=== PATIENT | female | born 1990 | race African-American/Black ===

== ENCOUNTER 2017-09-18 00:16 | Emergency (ER) | payer SELFPAY ==
[2017-09-18 00:24] VITALS: BP 129/90
--- NOTE | 2017-09-18 00:50 | ER Document Report ---
ED General - General Chief Complaint: Sore Throat Stated Complaint: THROAT PAIN Time Seen by Provider: 09/18/17 00:37 Notes: Patient is a 19-year-old female presents with complaint of sore throat and headache. She says she has been sick for a week. Friends at work had strep and therefore she is come to be checked for strep. She admits she has not been eating or drinking much because her throat hurts. She had T-max and was benign 9. She has been taking Tylenol Motrin for pain. No vomiting. No diarrhea. No other complaints at this time. Why into the room the patient tells me that she has to leave because her sister needs her to come pick her up. I informed her that the strep test is not back yet and also informed her that her heart rate is high and she has not been drinking and therefore feel that she would be best if we give IV fluids as she is probably dehydrated. Told her I want to make sure that her heart rate returns to normal and that she continues to feel improved. Patient says she will not wait for IV fluids. She was says she will wait approximately 5-10 minutes longer to see if her strep test comes back. She says she would not wait for further treatment after that because she needs to go picking machine operator her sister. She has no chronic medical problems and does not take medications. TRAVEL OUTSIDE OF THE [place] IN LAST 30 DAYS: No - Related Data Allergies/Adverse Reactions: No Known Allergies Allergy (Verified 09/18/17 00:19) Past Medical History - Social History Smoking Status: Never Smoker Frequency of alcohol use: None Drug Abuse: None Family History: Reviewed & Not Pertinent Patient has suicidal ideation: No Patient has homicidal ideation: No Renal/ Medical History: Denies: Hx Peritoneal Dialysis - Immunizations Hx Diphtheria, Pertussis, Tetanus Vaccination: Yes Review of Systems - Review of Systems Notes: My Normal Review Basic REVIEW OF SYSTEMS: CONSTITUTIONAL : Body aches. EENT: Throat. CARDIOVASCULAR: Denies chest pain. RESPIRATORY: Denies cough, cold, or chest congestion. Denies shortness of breath, difficulty breathing, or wheezing. GASTROINTESTINAL: Denies abdominal pain. Denies nausea, vomiting, or diarrhea. Denies constipation. Last BM: MUSCULOSKELETAL: Denies neck or back pain or joint pain or swelling. SKIN: Denies rash or skin lesions. NEUROLOGICAL: Denies altered mental status or loss of consciousness. Has a headache. Denies weakness or paralysis or loss of use of either side. Denies problems with gait or speech. Denies sensory or motor loss. ALL OTHER SYSTEMS REVIEWED AND NEGATIVE. Physical Exam - Vital signs Vitals: Temp Pulse Resp BP Pulse Ox 98.8 F 120 H 18 129/90 H 100 09/18/17 00:23 09/18/17 00:23 09/18/17 00:23 09/18/17 00:23 09/18/17 00:23 - Notes Notes: General Appearance: Well nourished, alert, cooperative, no acute distress, mild to moderate obvious discomfort. Not septic or toxic appearing. Patient initially wrote a note to nurses saying that she wanted to leave. When asked if she hurts to talk she says "yes". Patient then answers all my questions verbally. She does not have a hoarse voice. Vitals: reviewed, See vital signs table. Head: no swelling or tenderness to the head Eyes: PERRL, EOMI, Conjuctiva clear Mouth: No decreasd moisture Throat: Mild pharyngeal erythema. No tonsillar inflammation. No peritonsillar swelling. No trismus. No stridor. Neck: Supple, no neck tenderness, some mild anterior cervical lymphadenopathy. Patient is able to fully extend and flex her neck without difficulty. Lungs: No wheezing, No rales, No rhonci, No accessory muscle use, good air exchange bilaterally. Heart: Tachycardic rate, Regular rythm, No murmur, no rub Abdomen: Normal BS, soft, No rigidity, No abdominal tenderness, No guarding, no rebound, no abdominal masses, no organomegaly Extremities: strength 5/5 in all extremities, good pulses in all extremities, no swelling or tenderness in the extremities, no edema. Skin: warm, dry, appropriate color, no rash Neuro: speech clear, oriented x 3, normal affect, responds appropriately to questions. Cranial nerves II through XII are intact. Distal sensation intact. Normal gait. Patient moves all extremities without difficulty. No focal neurologic deficits on exam. Course - Re-evaluation Re-evalutation: 09/18/17 01:12 I saw the patient informed her that this is a strep come back of the back in the room. There is some is soon as I left the bedside the patient left. She then called back for strep results. Her strep was negative. The nurse tell her over the phone as I told her bedside that I still feel that she needs IV fluids I am concerned about her fast heart rate. Informed her to return to ER anytime so can reassess her and complete her treatment. Before the patient left the nose at bedside I talked to patient length about her high heart rate and how I felt that she needed further treatment including IV fluids as I suspect she is dehydrated she has not been eating or drinking at all. Patient showed understanding of this but obviously left soon as I got done talking to her and she want to go picking machine operator her sister. Patient left AGAINST MEDICAL ADVICE. Dictation of this chart was performed using voice recognition software; therefore, there may be some unintended grammatical errors. - Vital Signs Vital signs: Temp Pulse Resp BP Pulse Ox 98.8 F 120 H 18 129/90 H 100 09/18/17 00:23 09/18/17 00:23 09/18/17 00:23 09/18/17 00:23 09/18/17 00:23 Discharge - Discharge Clinical Impression: Tachycardia Pharyngitis Qualifiers: Pharyngitis/tonsillitis etiology: unspecified etiology Qualified Code(s): J02.9 - Acute pharyngitis, unspecified Disposition: ELOPED
== END 2017-09-18 01:08 | disposition left against medical advice (07) ==
LOC: ER 00:16
DX: J02.9 Acute pharyngitis, unspecified (principal); R51 Headache; R00.0 Tachycardia, unspecified; Z20.818 Contact with and (suspected) exposure to other bacterial communicable diseases; Z53.29 Procedure and treatment not carried out because of patient's decision for other reasons
CPT/HCPCS: 87070; 87880; 99281

== ENCOUNTER 2017-10-23 21:36 | Emergency (ER) | payer SELFPAY ==
[2017-10-23 22:35] VITALS: BP 136/97
[2017-10-23] MEDS ORDERED: AZITHROMYCIN 250 MG TABLET PO ONE (22:47)
--- NOTE | 2017-10-23 22:48 | ER Document Report ---
ED General - General Chief Complaint: Flu Symptoms Stated Complaint: FLU LIKE SYMPTOMS Time Seen by Provider: 10/23/17 22:45 Mode of Arrival: Ambulatory Information source: Patient Notes: 27-year-old female presents with complaints of body aches nasal congestion sinus drainage that started 2-3 days ago. Patient admits to feeling warm but no diagnosis of fever admits to chills TRAVEL OUTSIDE OF THE [place] IN LAST 30 DAYS: No - HPI Onset: Other Onset/Duration: Persistent Quality of pain: Achy Severity: Mild Pain Level: 1 Associated symptoms: Body/muscle aches, Chills, Fever, Sinus pain/drainage Exacerbated by: Denies Relieved by: Denies Similar symptoms previously: No Recently seen / treated by doctor: No - Related Data Allergies/Adverse Reactions: No Known Allergies Allergy (Verified 09/18/17 00:19) Past Medical History - Social History Smoking Status: Never Smoker Cigarette use (# per day): No Chew tobacco use (# tins/day): No Smoking Education Provided: No Family History: Reviewed & Not Pertinent Renal/ Medical History: Denies: Hx Peritoneal Dialysis - Immunizations Hx Diphtheria, Pertussis, Tetanus Vaccination: Yes Review of Systems - Review of Systems Notes: REVIEW OF SYSTEMS: CONSTITUTIONAL : Admits fevers chills EENT: Admits to sinus pressure drainage CARDIOVASCULAR: Denies chest pain. Denies palpitations or racing or irregular heart beat. Denies ankle edema. RESPIRATORY: Denies cough, cold, or chest congestion. Denies shortness of breath, difficulty breathing, or wheezing. GASTROINTESTINAL: Denies abdominal pain or distention. Denies nausea, vomiting , or diarrhea. Denies blood in vomitus, stools, or per rectum. Denies black, tarry stools. Denies constipation. GENITOURINARY: Denies difficulty urinating, painful urination, burning, frequency, blood in urine, or discharge. FEMALE GENITOURINARY: Denies vaginal bleeding, heavy or abnormal periods, irregular periods. Denies vaginal discharge or odor. MUSCULOSKELETAL: Admits to body aches SKIN: Denies rash, lesions or sores. HEMATOLOGIC : Denies easy bruising or bleeding. LYMPHATIC: Denies swollen, enlarged glands. NEUROLOGICAL: Denies confusion or altered mental status. Denies passing out or loss of consciousness. Denies dizziness or lightheadedness. Denies headache. Denies weakness or paralysis or loss of use of either side. Denies problems with gait or speech. Denies sensory loss, numbness, or tingling. Denies seizures. PSYCHIATRIC: Denies anxiety or stress. Denies depression, suicidal ideation, or homicidal ideation. ALL OTHER SYSTEMS REVIEWED AND NEGATIVE. PHYSICAL EXAMINATION: GENERAL: Well-appearing, well-nourished and in no acute distress. HEAD: Atraumatic, normocephalic. EYES: Pupils equal round and reactive to light, extraocular movements intact, conjunctiva are normal. ENT: Bilateral frontal maxillary sinus tenderness upon palpation nasal congestion noted NECK: Normal range of motion, supple without lymphadenopathy LUNGS: Breath sounds clear to auscultation bilaterally and equal. No wheezes rales or rhonchi. HEART: Regular rate and rhythm without murmurs was noted to be tachycardic upon arrival but had resolved upon my evaluation heart rate 86 ABDOMEN: Soft, nontender, nondistended abdomen. No guarding, no rebound. No masses appreciated. Female : deferred Musculoskeletal: Normal range of motion, no pitting or edema. No cyanosis. NEUROLOGICAL: Cranial nerves grossly intact. Normal speech, normal gait. Normal sensory, motor exams PSYCH: Normal mood, normal affect. SKIN: Warm, Dry, normal turgor, no rashes or lesions noted. Dictation was performed using [employer] voice recognition software Physical Exam - Vital signs Vitals: Temp Pulse Resp BP Pulse Ox 97.8 F 118 H 20 136/97 H 98 10/23/17 22:32 10/23/17 22:32 10/23/17 22:32 10/23/17 22:32 10/23/17 22:32 Course - Re-evaluation Re-evalutation: 10/24/17 00:56 Patient's presentation is most consistent with sinusitis, she does have some generalized body aches which I believe may be due to fevers and chills from the infectious process, nonetheless patient has been given very strict return precautions will be started on antibiotics and the stable for discharge After performing a Medical Screening Examination, I estimate there is LOW risk for ACUTE CORONARY SYNDROME, PULMONARY EMBOLI, RESPIRATORY FAILURE, SEPSIS OR MENINGITIS, thus I consider the discharge disposition reasonable. I have reevaluated this patient multiple times and no significant life threatening changes are noted. The patient and I have discussed the diagnosis and risks, and we agree with discharging home with close follow-up. We also discussed returning to the Emergency Department immediately if new or worsening symptoms occur. We have discussed the symptoms which are most concerning (e.g., changing or worsening pain, trouble swallowing or breathing, neck stiffness, fever) that necessitate immediate return. - Vital Signs Vital signs: Temp Pulse Resp BP Pulse Ox 97.8 F 118 H 20 136/97 H 98 10/23/17 22:32 10/23/17 22:32 10/23/17 22:32 10/23/17 22:32 10/23/17 22:32 Discharge - Discharge Clinical Impression: Tachycardia Sinusitis Qualifiers: Sinusitis location: frontal Chronicity: acute Recurrence: non-recurrent Qualified Code(s): J01.10 - Acute frontal sinusitis, unspecified Condition: Stable Disposition: HOME, SELF-CARE Instructions: Sinusitis ([facility]) Prescriptions: Azithromycin 250 mg PO DAILY #4 tablet Forms: Return to Work
== END 2017-10-23 22:58 | disposition home or self-care (01) ==
LOC: ER 21:36
DX: J01.10 Acute frontal sinusitis, unspecified (principal); R00.0 Tachycardia, unspecified; M79.1 Myalgia
CPT/HCPCS: 99283

== ENCOUNTER 2017-10-31 20:34 | Emergency (ER) | payer SELFPAY ==
[2017-10-31] MEDS ORDERED: FLUCONAZOLE 100 MG TABLET PO ONE (22:43)
[2017-10-31] MEDS ORDERED: GUAIFENESIN 600 MG TABLET.SA PO ONE (22:43)
--- NOTE | 2017-10-31 22:47 | ER Document Report ---
ED General - General Chief Complaint: Cold Symptoms Stated Complaint: CHEST WALL PAIN Time Seen by Provider: 10/31/17 22:00 Mode of Arrival: Ambulatory Information source: Patient Notes: 27-year-old female with no significant past medical history presents with complaint of nasal congestion, nasal drainage and a rash on her inguinal area. Patient states that she has had sinus pressure, sinus drainage for approximately 2 weeks. She was recently treated with "4 pills". She states that she had improvement of her sore throat but that she is still experiencing nasal drainage which is making her concerned. Patient also states rash was noticed 1 day prior to arrival. She describes it as burning, located in her inguinal folds and perineum. She is sexually active with one partner and does not use protection. She denies any vaginal discharge, dysuria, hematuria. Sexually transmitted disease. TRAVEL OUTSIDE OF THE [place] IN LAST 30 DAYS: No - HPI Onset: Other - 2 weeks Onset/Duration: Gradual Quality of pain: Pressure Severity: Mild Pain Level: 1 Associated symptoms: Nonproductive cough, Headache. denies: Earache, Fever, Nausea, Vomiting Exacerbated by: Denies Relieved by: Denies Similar symptoms previously: No Recently seen / treated by doctor: No - Related Data Allergies/Adverse Reactions: No Known Allergies Allergy (Verified 09/18/17 00:19) Past Medical History - General Information source: Patient - Social History Smoking Status: Never Smoker Frequency of alcohol use: None Drug Abuse: None Lives with: Family Family History: Reviewed & Not Pertinent Patient has suicidal ideation: No Patient has homicidal ideation: No - Medical History Medical History: Negative Renal/ Medical History: Denies: Hx Peritoneal Dialysis - Immunizations Hx Diphtheria, Pertussis, Tetanus Vaccination: Yes Review of Systems - Review of Systems Constitutional: denies: Fever EENT: Nose congestion, Nose discharge, Sinus pressure, Sinus discharge, Throat pain Cardiovascular: denies: Chest pain Respiratory: denies: Short of breath Gastrointestinal: denies: Abdominal pain Genitourinary: denies: Dysuria Skin: Rash - inguinal folds Neurological/Psychological: No symptoms reported Physical Exam - Vital signs Vitals: Temp Pulse BP Pulse Ox 98.7 F 113 H 124/98 H 94 10/31/17 20:50 10/31/17 20:50 10/31/17 20:50 10/31/17 20:50 Interpretation: Normal, Tachycardic - She is tearful, anxious. - General General appearance: Appears well, Alert In distress: None - HEENT Head: Normocephalic, Atraumatic Eyes: Normal Conjunctiva: Normal Extraocular movements intact: Yes Pupils: PERRL Ears: Normal External canal: Normal Tympanic membrane: Normal Sinus: Frontal, Maxillary, Tenderness Nasal: Swelling. No: Purulent discharge Mouth/Lips: Normal Mucous membranes: Normal Neck: No: Anterior cervical chain - Respiratory Respiratory status: No respiratory distress Chest status: Nontender Breath sounds: Normal Chest palpation: Normal - Skin Skin Temperature: Warm Skin Moisture: Dry Skin Color: Normal Skin irregularity: Rash - Fungal rash of the inguinal folds bilaterally. Course - Re-evaluation Re-evalutation: 10/31/17 23:53 Patient requesting discharge home. 11/01/17 02:20 27-year-old female with no significant past medical history presents with complaint of nasal congestion, facial pressure and an inguinal rash. She states that nasal pressure and drainage have been ongoing for 2 weeks. She states that she had recently been on a prescribed medication for 4 days but is unclear whether this was an antibiotic or decongestant. Patient also is complaining of a fungal rash located in her inguinal folds bilaterally. Upon arrival vitals were reviewed and within normal limits. She is afebrile, normotensive. She is mildly tachycardic but I think this is secondary to her being anxious and tearful. Exam is significant for sinusitis, fungal rash. She was given Diflucan in the department. A prescription for nystatin powder was also provided to the patient. Patient was reassured and discharged home upon her request. Laboratory 10/31/17 23:05 Urine Color YELLOW Urine Appearance SLIGHTLY-CLOUDY Urine pH 6.0 Ur Specific [place] 1.014 Urine Protein NEGATIVE Urine Glucose (UA) NEGATIVE Urine Ketones NEGATIVE Urine Blood NEGATIVE Urine Nitrite NEGATIVE Urine Bilirubin NEGATIVE Urine Urobilinogen NEGATIVE Ur Leukocyte Esterase NEGATIVE Urine WBC (Auto) 1 Urine RBC (Auto) 0 Squamous Epi Cells Auto 9 Urine Mucus (Auto) RARE Urine Ascorbic Acid NEGATIVE Urine HCG, Qual NEGATIVE - Vital Signs Vital signs: Temp Pulse Resp BP Pulse Ox 98.7 F 113 H 15 121/93 H 100 10/31/17 20:50 10/31/17 20:50 10/31/17 22:01 10/31/17 22:00 10/31/17 21:59 Discharge - Discharge Clinical Impression: Fungal rash of trunk, URI (upper respiratory infection) Sinusitis Qualifiers: Sinusitis location: maxillary Chronicity: acute Recurrence: not specified as recurrent Qualified Code(s): J01.00 - Acute maxillary sinusitis, unspecified Condition: Good Disposition: HOME, SELF-CARE Instructions: Diaper Rash ([facility]), Upper Respiratory Illness ([facility]) Additional Instructions: Your exam is consistent with an upper respiratory infection and a fungal rash. He will be prescribed Mucinex, nystatin and Diflucan. Prescriptions: Fluconazole [Diflucan 100 Mg Tablet] 100 mg PO DAILY 1 Days #1 tablet Fluticasone Propionate [Flonase Nasal [place] 50 Mcg/[place] 16 gm] 1 spray NASL Q12 #1 inhaler Nystatin 1 each PO TID 14 Days #1 powder.noel.
[2017-10-31 23:41] LABS: APPEARANCE,URINE SLIGHTLY-CLOUDY; BILIRUBIN,URINE NEGATIVE (NEGATIVE); COLOR,URINE YELLOW; GLUCOSE, URINE NEGATIVE (NEGATIVE); KETONES,URINE NEGATIVE (NEGATIVE); LEUKOCYTE ESTERASE,URINE NEGATIVE (NEGATIVE); NITRITE,URINE NEGATIVE (NEGATIVE); PROTEIN,URINE NEGATIVE (NEGATIVE); URINE SPECIFIC GRAVITY 1.014; UROBILINOGEN,URINE NEGATIVE mg/dL (<2.0)
[2017-10-31 23:44] VITALS: BP 121/93
--- NOTE | 2017-10-31 23:53 | EKG REPORT ---
SEVERITY:- BORDERLINE ECG - SINUS TACHYCARDIA BORDERLINE T ABNORMALITIES, INFERIOR LEADS : Confirmed by: Roxy Chavez 31-Oct-2017 23:52:24
== END 2017-11-01 00:12 | disposition home or self-care (01) ==
LOC: ER 20:34
DX: J06.9 Acute upper respiratory infection, unspecified (principal); J01.00 Acute maxillary sinusitis, unspecified; B36.9 Superficial mycosis, unspecified; R07.89 Other chest pain; R09.81 Nasal congestion; R09.89 Other specified symptoms and signs involving the circulatory and respiratory systems; R21 Rash and other nonspecific skin eruption; R05 Cough; R51 Headache
CPT/HCPCS: 81001; 81025; 93005; 93010; 99283

== ENCOUNTER 2018-02-07 00:44 | Emergency (ER) | payer SELFPAY ==
--- NOTE | 2018-02-07 01:24 | RADIOLOGY REPORT (SQ) ---
EXAM DESCRIPTION: XR ANKLE 2 VIEWS COMPLETED DATE/TME: 02/07/2018 00:48 CLINICAL HISTORY: 28 years, Female, pain COMPARISON: None. NUMBER OF VIEWS: Three views TECHNIQUE: AP lateral and oblique views LIMITATIONS: None. FINDINGS: Soft tissue swelling both medially and laterally. There is a minimally displaced fracture of the distal fibula. Questionable widening of the medial aspect of the ankle mortise with some adjacent soft tissue swelling. The possibility of associated deltoid ligament injury should be considered. IMPRESSION: Minimally displaced fracture of the distal fibula with associated soft tissue swelling Soft tissue swelling along the medial aspect of the ankle with subtle widening of the medial aspect of the mortise. The possibility of ligamentous injury should be considered 2010 [employer]- All Rights Reserved
[2018-02-07] MEDS ORDERED: HYDROCODONE/ACETAMINOPHEN 5-325 MG (6 TAB/ER DISP) PO PRN (01:35)
[2018-02-07] MEDS ORDERED: HYDROCODONE/ACETAMINOPHEN 5-325 MG TABLET PO ONE (01:35)
--- NOTE | 2018-02-07 01:39 | ER Document Report ---
ED General - General Chief Complaint: Knee Injury Stated Complaint: LEFT ANKLE INJURY Time Seen by Provider: 02/07/18 01:31 Notes: Patient is a pleasant 28-year-old female who presents with complaints of pain over the left ankle and left knee. She said her foot got stuck on something and when she went to step away her left ankle twisted and felt a pop and then she felt pain into her knee. She denies any numbness or weakness into the foot or ankle. No other injuries. She denies any chronic medical problems and is not allergic to any medications. TRAVEL OUTSIDE OF THE [place] IN LAST 30 DAYS: No - Related Data Allergies/Adverse Reactions: No Known Allergies Allergy (Verified 09/18/17 00:19) Past Medical History - Social History Smoking Status: Never Smoker Frequency of alcohol use: None Drug Abuse: None Family History: Reviewed & Not Pertinent Renal/ Medical History: Denies: Hx Peritoneal Dialysis - Immunizations Hx Diphtheria, Pertussis, Tetanus Vaccination: Yes Review of Systems - Review of Systems Notes: My Normal Review Basic REVIEW OF SYSTEMS: CONSTITUTIONAL : Denies fever, chills, or sweats. Denies recent illness. MUSCULOSKELETAL: Left ankle and knee pain. SKIN: Denies rash or skin lesions. NEUROLOGICAL: Denies sensory or motor loss. ALL OTHER SYSTEMS REVIEWED AND NEGATIVE. Physical Exam - Vital signs Vitals: Temp Pulse Resp BP Pulse Ox 98.6 F 113 H 16 136/82 H 98 02/07/18 00:58 02/07/18 00:58 02/07/18 00:58 02/07/18 00:58 02/07/18 00:58 - Notes Notes: General Appearance: Well nourished, alert, cooperative, no acute distress, mild obvious discomfort. Vitals: reviewed, See vital signs table. Extremities: strength 5/5 in all extremities, good pulses in all extremities, mild swelling to the left ankle on the lateral aspect. Pain to palpation over the lateral malleolus. Good distal pulses and distal sensation. Patient's left knee has tenderness mainly over the patella and just inferior to it. Pain palpation of the medial lateral aspect of the left knee. No pain over the posterior aspect of the knee. Skin: warm, dry, appropriate color, no rash Neuro: speech clear, oriented x 3, normal affect, responds appropriately to questions. Course - Re-evaluation Re-evalutation: 02/07/18 05:53 Patient has a distal fibula fracture. She was placed in a sugar tong splint of the left ankle. Patient also has what appears to be knee strain without fracture. Patient given crutches and Ole wrap for knee. Patient to follow-up with orthopedist this week for reevaluation. Patient agrees with plan will be discharged home. Dictation of this chart was performed using voice recognition software; therefore, there may be some unintended grammatical errors. - Vital Signs Vital signs: Temp Pulse Resp BP Pulse Ox 98.6 F 93 16 123/81 100 02/07/18 04:07 02/07/18 04:07 02/07/18 04:07 02/07/18 04:07 02/07/18 04:07 Procedures - Immobilization Left Ankle Pre-Proc Neuro Vasc Exam: Normal Immobilizer type: Sugar tong Performed by: Provider Post-Proc Neuro Vasc Exam: Normal Discharge - Discharge Clinical Impression: Fibula fracture Qualifiers: Encounter type: initial encounter Fibula location: distal Fracture type: closed Fracture morphology: unspecified fracture morphology Laterality: left Qualified Code(s): S82.832A - Other fracture of upper and lower end of left fibula, initial encounter for closed fracture Strain of knee Qualifiers: Encounter type: initial encounter Laterality: left Qualified Code(s): S86.912A - Strain of unspecified muscle(s) and tendon(s) at lower leg level, left leg, initial encounter Condition: Good Disposition: HOME, SELF-CARE Instructions: Oral Narcotic Medication ([facility]) Additional Instructions: Please stay non-weight bearing off the left leg until cleared by the orthopedic surgeon. Please wear the splint on your ankle and continue to wrap your left knee with the ole bandage for support. Please loosen the wrap on your splint if you feel it becomes too tight. Return to the ER if you have intractable worsening pain, worsening swelling, or feel unwell. Please call Dr. Garza's office to make a close follow up appointment. Prescriptions: Hydrocodone/Acetaminophen [[place] 5-325 mg Tablet] 1 tab PO Q4 PRN #12 tablet PRN Reason: For Breakthrough Pain Forms: Special Work Note, Return to Work Referrals: THALIA GARZA MD [ACTIVE STAFF] - Follow up in 3-5 days
--- NOTE | 2018-02-07 03:16 | RADIOLOGY REPORT (SQ) ---
EXAM DESCRIPTION: XR KNEE 4 OR MORE VIEWS COMPLETED DATE/TME: 02/07/2018 01:36 CLINICAL HISTORY: 28 years, Female, trauma COMPARISON: None. NUMBER OF VIEWS: Four TECHNIQUE: Four views of the left knee LIMITATIONS: None. FINDINGS: There is no acute fracture or dislocation. A catheter is noted along the lateral aspect of the knee. There is no significant joint effusion. IMPRESSION: No acute fracture or dislocation 2010 [employer]- All Rights Reserved
[2018-02-07 04:08] VITALS: BP 123/81
== END 2018-02-07 04:08 | disposition home or self-care (01) ==
LOC: ER 00:44
PROC: 2W3RX1Z Immobilization of Left Lower Leg using Splint (ICD-10-PCS; principal; 2018-02-07)
DX: S82.832A Other fracture of upper and lower end of left fibula, initial encounter for closed fracture (principal); S86.912A Strain of unspecified muscle(s) and tendon(s) at lower leg level, left leg, initial encounter; X50.0XXA Overexertion from strenuous movement or load, initial encounter
CPT/HCPCS: 99283

== ENCOUNTER 2018-02-17 19:07 | Emergency (ER) | payer SELFPAY ==
--- NOTE | 2018-02-17 19:57 | ER Document Report ---
ED Skin Rash/Insect Bite/Abscs - General Chief Complaint: Abscess Stated Complaint: ABSCESS Time Seen by Provider: 02/17/18 19:51 Mode of Arrival: Ambulatory Information source: Patient Notes: 28-year-old female presents to ED for 2 abscesses to her right cheek with swelling to the right face and neck for 2-3 days. She states she has had a fever off and on and feels like at times she cannot breathe. TRAVEL OUTSIDE OF THE [place] IN LAST 30 DAYS: No - HPI Patient complains to provider of: Tender/swollen area, Other - With swelling to the face and neck Onset: Other - 3 days Onset/Duration: Gradual Quality of pain: Pressure, Sharp, Throbbing Severity: Severe Pain Level: 5 Skin Character: Abscess Quality of rash: Painful Identify cause: No Exacerbated by: Movement Relieved by: Denies Similar symptoms previously: No Recently seen / treated by doctor: Yes - Has a left broken ankle - Related Data Allergies/Adverse Reactions: No Known Allergies Allergy (Verified 09/18/17 00:19) Past Medical History - General Information source: Patient - Social History Smoking Status: Current Every Day Smoker Cigarette use (# per day): Yes - 2 cigarettes a day Chew tobacco use (# tins/day): No Smoking Education Provided: Yes - 4 Minutes Frequency of alcohol use: Social Drug Abuse: None Occupation: Customer service Lives with: Alone Family History: Reviewed & Not Pertinent Patient has suicidal ideation: No Patient has homicidal ideation: No - Past Medical History Cardiac Medical History: Reports: None Pulmonary Medical History: Reports: None EENT Medical History: Reports: None Neurological Medical History: Reports: None Endocrine Medical History: Reports: None Renal/ Medical History: Reports: None Malignancy Medical History: Reports: None GI Medical History: Reports: None Musculoskeltal Medical History: Reports None Skin Medical History: Reports None Psychiatric Medical History: Reports: None Traumatic Medical History: Reports: None Infectious Medical History: Reports: None Surgical Hx: Negative Past Surgical History: Reports: None - Immunizations Immunizations up to date: Yes Hx Diphtheria, Pertussis, Tetanus Vaccination: Yes Review of Systems - Review of Systems Constitutional: Fever, Other EENT: Other - Swelling to the right cheek and neck. Cardiovascular: No symptoms reported Respiratory: No symptoms reported Gastrointestinal: No symptoms reported Genitourinary: No symptoms reported Female Genitourinary: No symptoms reported Musculoskeletal: No symptoms reported Skin: Other - Abscess to the right cheek with swelling to the right neck Hematologic/Lymphatic: No symptoms reported Neurological/Psychological: No symptoms reported -: Yes All other systems reviewed and negative Physical Exam - Vital signs Vitals: Temp Pulse Resp BP Pulse Ox 98.0 F 117 H 16 138/83 H 100 02/17/18 19:16 02/17/18 19:16 02/17/18 19:16 02/17/18 19:16 02/17/18 19:16 Interpretation: Normal - General General appearance: Appears well, Alert - HEENT Head: Atraumatic, Open wounds - Abscess with a small opening to the right cheek 2 with swelling to the neck, Tenderness Eyes: Normal Pupils: PERRL Ears: Normal External canal: Normal Tympanic membrane: Normal Sinus: Normal Nasal: Normal Mouth/Lips: Normal Mucous membranes: Normal Neck: Anterior cervical chain, Lymphadenopathy, Other - Swelling to the right side of the neck - Respiratory Respiratory status: No respiratory distress Chest status: Nontender Breath sounds: Normal Chest palpation: Normal - Cardiovascular Rhythm: Regular Heart sounds: Normal auscultation Murmur: No - Abdominal Inspection: Normal Distension: No distension Bowel sounds: Normal Tenderness: Nontender Organomegaly: No organomegaly - Back Back: Normal, Nontender - Extremities General upper extremity: Normal inspection, Nontender, Normal color, Normal ROM , Normal temperature General lower extremity: Normal inspection, Nontender, Normal color, Normal ROM , Normal temperature, Normal weight bearing. No: Jonatan's sign - Neurological Neuro grossly intact: Yes Cognition: Normal Orientation: AAOx4 [place] Coma Scale Eye Opening: Spontaneous Aleks Coma Scale Verbal: Oriented Aleks Coma Scale Motor: Obeys Commands [place] Coma Scale Total: 15 Speech: Normal Motor strength normal: LUE, RUE, LLE, RLE Sensory: Normal - Psychological Associated symptoms: Normal affect, Normal mood - Skin Skin Temperature: Warm Skin Moisture: Dry Skin Color: Normal Skin irregularity: Abscess - Right cheek Location of irregularity: Face, Other Irregularity with: Swelling - Falling to the right neck, Tenderness, Warmth, Inflammation Course - Re-evaluation Re-evalutation: 02/18/18 02:[address] soft tissue neck discussed with patient before discharge. Patient was treated with antibiotics in the emergency room and discharged home with antibiotics and instructed to follow-up with ears nose and throat. CT was negative for an abscess positive for cellulitis and inflammation. - Vital Signs Vital signs: Temp Pulse Resp BP Pulse Ox 98.5 F 106 H 18 142/88 H 100 02/17/18 21:15 02/17/18 21:15 02/17/18 21:15 02/17/18 21:15 02/17/18 21:15 - Laboratory Result Diagrams: 02/17/18 20:00 02/17/18 20:00 Laboratory results interpreted by me: 02/17/18 20:00 MCH 26.7 L - Diagnostic Test Radiology reviewed: Image reviewed, Reports reviewed Discharge - Discharge Clinical Impression: cellulitis to right face Condition: Stable Disposition: HOME, SELF-CARE Instructions: Family Physicians / Practices Additional Instructions: CELLULITIS: You have an infection of your skin and underlying soft tissues called cellulitis. This is due to bacteria, which can enter through any break in the skin, or even through an irritated hair follicle. Untreated, cellulitis will usually worsen. Antibiotics are required. Usually, warm packs or warm soaks, and elevation of the infected area are recommended. You should start getting better within 24 to 36 hours. Most infections respond quickly to the right medication. Follow-up care is important, however, to check for abscess (boil) formation, unsuspected foreign body, or resistant infection. If you develop fever, chills, or if the area of infection is becoming rapidly more swollen or painful, call the doctor at once. TRIMETHOPRIM-SULFA: You have been given a prescription for trimethoprim-sulfa (TMS, Septra, Bactrim). This is a combination antibiotic of the sulfa class, often used for urinary tract infections, middle ear infections, bronchitis, shigella intestinal infection, and Pneumocystis pneumonia. TMS is usually well-tolerated. Occasional side effects include nausea and decreased appetite. Septra is not recommended for infants less than two months of age. Do not take this medication if you have experienced severe side effects or allergy to sulfa medicine. You should stop this medicine at once and contact your physician if you develop any rash, joint pain, shortness of breath, bruising, or jaundice ( yellow color in the skin), or if you develop any other new or unusual symptoms. Cephalexin The antibiotic you've been prescribed is a member of the cephalosporin class. This type of antibiotic covers a wide variety of infections, including those of the skin, lungs, and urinary tract. It's useful for staph infections. This antibiotic is slightly similar to the penicillin family. In rare cases , a person who is allergic to penicillin will also be allergic to this medication. If you have had a severe allergic reaction to penicillin, and have not taken this antibiotic since that time, notify your doctor. Antibiotics which cover many germs ("broad spectrum" antibiotics) are more likely to cause diarrhea or "yeast" infections. Women prone to vaginal yeast problems may suffer an attack after taking this antibiotic. In infants, oral thrush (white spots "stuck" on the cheek) or yeast diaper rash may result. See your doctor if these problems occur. Call at once if you develop itching, hives , shortness of breath, or lightheadedness. Epsom Salt Soaks Soak the wound area in a container of warm epsom salt water. If you can't get the wound area into a bucket or powell, use a folded towel soaked in the epsom salt solution and apply to the area. Use clean hot tap water (about the temperature of a very warm bath), mixing in about one (1) teaspoon for every pint of water. Two gallon --> 16 teaspoons Epsom Salts One gallon --> 8 teaspoons Epsom Salts Two quarts --> 4 teaspoons Epsom Salts One quart --> 2 teaspoons Epsom Salts Soak the wound for about 20 minutes while gently moving it around in the water. Repeat this four (4) times a day. FOLLOW-UP CARE: If you have been referred to a physician for follow-up care, call the physician s office for an appointment as you were instructed or within the next two days. If you experience worsening or a significant change in your symptoms, notify the physician immediately or return to the Emergency Department at any time for re-evaluation. Prescriptions: Cephalexin Monohydrate [Keflex 500 mg Capsule] 500 mg PO Q6H 10 Days capsule Sulfamethoxazole/Trimethoprim [Septra-Ds 800-160 mg Tablet] 1 tab PO BID #20 tablet Forms: Elevated Blood Pressure, Smoking Cessation Education Referrals: THALIA GARZA MD [ACTIVE STAFF] - Follow up as needed
[2018-02-17 20:25] LABS: ABSOLUTE EOSINOPHILS # (AUTO) 0.2 10^3/uL (0.0-0.6); ABSOLUTE LYMPHOCYTES (AUTO) 1.6 10^3/uL (0.5-4.7); ABSOLUTE MONOCYTES (AUTO) 0.5 10^3/uL (0.1-1.4); BASOPHILS % (AUTO) 0.6 % (0-2); HEMATOCRIT 38.4 % (36.0-47.0); HEMOGLOBIN 12.8 g/dL (12.0-15.5); LYMPHOCYTES % (AUTO) 19.4 % (13-45); MEAN CORPUSCULAR HEMOGLOBIN 26.7 pg (27.0-33.4); MEAN CORPUSCULAR HGB CONC 33.4 g/dL (32.0-36.0); MEAN CORPUSCULAR VOLUME 80 fl (80-97); MONOCYTES % (AUTO) 6.1 % (3-13); PLATELET COUNT 450 10^3/uL (150-450); RED BLOOD COUNT 4.81 10^6/uL (3.72-5.28); RED CELL DISTRIBUTION WIDTH 13.7 % (11.5-14.0); SEGMENTED NEUTROPHILS % (AUTO) 71.9 % (42-78); TOTAL CELLS COUNTED % (AUTO) 100 %; WHITE BLOOD COUNT 8.3 10^3/uL (4.0-10.5)
[2018-02-17 20:39] LABS: ALANINE AMINOTRANSFERASE 17 U/L (9-52); ALBUMIN 3.7 g/dL (3.5-5.0); ALKALINE PHOSPHATASE 71 U/L (38-126); ANION GAP 10 (5-19); ASPARTATE AMINO TRANSFERASE 22 U/L (14-36); BILIRUBIN,DIRECT 0.4 mg/dL (0.0-0.4); BILIRUBIN,TOTAL 0.5 mg/dL (0.2-1.3); BLOOD UREA NITROGEN 17 mg/dL (7-20); CALCIUM 9.1 mg/dL (8.4-10.2); CARBON DIOXIDE 26 mmol/L (22-30); CHLORIDE 106 mmol/L (98-107); GLUCOSE 109 mg/dL (75-110); POTASSIUM 3.9 mmol/L (3.6-5.0); SODIUM 142.1 mmol/L (137-145); TOTAL PROTEIN 7.6 g/dL (6.3-8.2)
--- NOTE | 2018-02-17 20:51 | RADIOLOGY REPORT (SQ) ---
EXAM DESCRIPTION: CT SOFT TISSUE NECK WITH COMPLETED DATE/TIME: 02/17/2018 8:40 pm REASON FOR STUDY: Right cheek abscess swelling to neck COMPARISON: None. TECHNIQUE: Post IV contrasted scanning from skull base through lung apices with review of bone, soft tissue and lung windows. Reconstructed coronal and sagittal MPR images reviewed. All images stored on PACS. All CT scanners at this facility use dose modulation, iterative reconstruction, and/or weight based d osing when appropriate to reduce radiation dose to as low as reasonably achievable (ALARA). [facility]: Dose Right [facility]: CareDose [facility]: Dose Right [facility]: Teradose 4D [facility]: [employer] CONTRAST TYPE AND DOSE: contrast/concentration: Isovue 370.00 mg/ml; Total Contrast Delivered: 75.0 ml; Total Saline Delivered: 45.0 ml RENAL FUNCTION: None required. The patient is less than 50 years old. RADIATION DOSE: CT Rad equipment meets quality standard of care and radiation dose reduction techniq ues were employed. CTDIvol: 15.2 mGy. DLP: 481 mGy-cm. . LIMITATIONS: None. FINDINGS: SKULL BASE: Intact. MAJOR SALIVARY GLANDS: No solid or cystic masses. No inflammatory changes. LYMPHADENOPATHY: Mild reactive adenopathy. MUCOSAL MASSES OR ASYMMETRY: No mucosal masses or asymmetry. LARYNX/CORDS: No abnormal findings. VASCULAR STRUCTURES: The major vessels are patent. LUNG APICES: Clear. BONES: Intact. THYROID: Normal size. No masses. PARANASAL SINUSES: Clear. OTHER: Induration in the subcutaneous soft tissues of the right cheek without focal fluid collection. No evidence for involvement of deeper soft tissue structures. IMPRESSION: Induration in the subcutaneous soft tissues of the right cheek without focal fluid colle ction. No evidence for involvement of deeper soft tissue structures. TECHNICAL DOCUMENTATION: JOB ID: [id number] [id number] Quality ID # [id number]: Final reports with documentation of one or more dose reduction techniques (e.g., Au tomated exposure control, adjustment of the mA and/or kV according to patient size, use of iterative reconstruction technique) 2010 [employer]- All Rights Reserved Reading location - IP/workstation name: [email or web address]
[2018-02-17] MEDS ORDERED: CEPHALEXIN 500 MG CAPSULE PO ONE (21:07)
[2018-02-17] MEDS ORDERED: SULFAMETHOXAZOLE/TRIMETHOPRIM 800-160 MG TABLET PO ONE (21:07)
[2018-02-17 21:17] VITALS: BP 142/88
== END 2018-02-17 21:30 | disposition home or self-care (01) ==
LOC: ER 19:07
DX: L03.211 Cellulitis of face (principal); R59.0 Localized enlarged lymph nodes; R06.00 Dyspnea, unspecified; R50.9 Fever, unspecified; F17.210 Nicotine dependence, cigarettes, uncomplicated; Z71.6 Tobacco abuse counseling
CPT/HCPCS: 36415; 70491; 80053; 84702; 85025; 87040; 99284; 99406

== ENCOUNTER 2018-07-11 10:15 | Emergency (ER) | payer SELFPAY ==
[2018-07-11 10:22] VITALS: BP 125/80
--- NOTE | 2018-07-11 11:11 | ER Document Report ---
HPI - HPI Patient complains to provider of: Eyelid swelling Time Seen by Provider: 07/11/18 11:00 Onset: Yesterday Onset/Duration: Persistent Pain Level: Denies Context: Patient presents complaining of right lower eyelid swelling and redness that started yesterday. Patient states she noticed drainage that was matting her eyelashes today. Patient denies any use of contact lenses. Patient denies any change in vision. Associated Symptoms: Other - Eyelid swelling Exacerbated by: Denies Relieved by: Denies Similar symptoms previously: No Recently seen / treated by doctor: No - ROS ROS below otherwise negative: Yes Systems Reviewed and Negative: Yes All other systems reviewed and negative - EENT EENT: REPORTS: Eye problems - REPRODUCTIVE Reproductive: DENIES: : - DERM Skin Color: Normal Skin Problems: None Past Medical History - General Information source: Patient - Social History Smoking Status: Current Every Day Smoker Smoking Education Provided: Yes Frequency of alcohol use: Occasional Drug Abuse: None Occupation: Customer service Family History: Reviewed & Not Pertinent - Medical History Medical History: Negative Renal/ Medical History: Denies: Hx Peritoneal Dialysis Surgical Hx: Negative - Immunizations Immunizations up to date: Yes Hx Diphtheria, Pertussis, Tetanus Vaccination: Yes Vertical Provider Document - CONSTITUTIONAL Exam Limitations: No Limitations General Appearance: WD/WN, No Apparent Distress - INFECTION CONTROL TRAVEL OUTSIDE OF THE [place] IN LAST 30 DAYS: No - HEENT HEENT: Atraumatic, Normocephalic Notes: Hordeolum to medial right lower eyelid - NECK Neck: Normal Inspection, Supple. negative: Lymphadenopathy-Left, Lymphadenopathy-Right - RESPIRATORY Respiratory: Breath Sounds Normal, No Respiratory Distress - CARDIOVASCULAR Cardiovascular: Regular Rate, Regular Rhythm - BACK Back: Normal Inspection - MUSCULOSKELETAL/EXTREMETIES Musculoskeletal/Extremeties: MAEW, FROM - NEURO Level of Consciousness: Awake, Alert, Appropriate Motor/Sensory: No Motor Deficit - DERM Integumentary: Warm, Dry Course - Re-evaluation Re-evalutation: 07/11/18 11:11 Patient with a stye to her right lower eyelid, no obvious injection of sclera, patient does not wear contact lenses. No concern for corneal abrasion or ulcer at this time. Patient without any eye tenderness - Vital Signs Vital signs: Temp Pulse Resp BP Pulse Ox 97.9 F 119 H 18 125/80 96 07/11/18 10:20 07/11/18 10:20 07/11/18 10:20 07/11/18 10:20 07/11/18 10:20 Discharge - Discharge Clinical Impression: Hordeolum externum (stye) Qualifiers: Laterality: right Eyelid: lower Qualified Code(s): H00.012 - Hordeolum externum right lower eyelid Condition: Stable Disposition: HOME, SELF-CARE Instructions: Eyedrop Use ([facility]), Sty ([facility]), Warm Packs ([facility]) Additional Instructions: Return immediately for any new or worsening symptoms Followup with your primary care provider, call tomorrow to make a followup appointment Prescriptions: Polymyxin B Sulfate/Tmp [Polytrim Oph Soln 10 ml] 1 drop RT_EYE ASDIR #1 bottle Forms: Smoking Cessation Education, Return to Work Referrals: [facility] [Provider Group] - Follow up as needed
== END 2018-07-11 11:20 | disposition home or self-care (01) ==
LOC: ER 10:15
DX: H00.012 Hordeolum externum right lower eyelid (principal); R60.9 Edema, unspecified; F17.210 Nicotine dependence, cigarettes, uncomplicated
CPT/HCPCS: 99283

== ENCOUNTER 2018-09-24 17:34 | Emergency (ER) | payer SELFPAY ==
--- NOTE | 2018-09-24 18:37 | ER Document Report ---
HPI - HPI Time Seen by Provider: 09/24/18 18:29 Pain Level: 3 Notes: Patient is a 28-year-old female who presents to the ED complaining of very mild dry nonproductive cough,body ache and s/t that began today. Patient states that she is still eating and drinking without difficulties, but does have a decreased p.o. intake. She is still urinating normally having normal bowel movements. Patient has been using some [id number] meds for symptoms. She denies any significant past medical history including cardiopulmonary history and immunocompromised conditions. Patient denies any smoking or IV drug use. Patient requesting work note. Denies any headache, neck pain, chest pain, palpitations, syncope, shortness of breath, wheeze, dyspnea, abdominal pain, nausea/vomiting/diarrhea, urinary retention, dysuria, hematuria, or rash. - ROS Systems Reviewed and Negative: Yes All other systems reviewed and negative - REPRODUCTIVE Reproductive: DENIES: : Past Medical History - Social History Smoking Status: Never Smoker Family History: Reviewed & Not Pertinent Renal/ Medical History: Denies: Hx Peritoneal Dialysis - Immunizations Immunizations up to date: Yes Hx Diphtheria, Pertussis, Tetanus Vaccination: Yes Vertical Provider Document - CONSTITUTIONAL Agree With Documented VS: Yes Notes: PHYSICAL EXAMINATION: GENERAL: Well-appearing, well-nourished and in no acute distress. A&Ox4. Answers questions appropriately. Moves comfortably w/o notable distress HEAD: Atraumatic, normocephalic. EYES: Pupils equal round and reactive to light, extraocular movements intact, sclera anicteric, conjunctiva are normal. ENT: EAC clear b/l. TM's intact b/l without erythema, fluid, or perforation. N shahbaz patent and without discharge. oropharynx mild erythema without exudates. 1+ tonsilar hypertrophy with erythema no exudate. No palatine shift. Uvula midline. No tongue protrusion. No drooling, hoarseness, or airway compromise. Moist mucous membranes. No sinus tenderness. NECK: Normal range of motion, supple without lymphadenopathy. No rigidity/meningismus. LUNGS: Breath sounds clear to auscultation bilaterally and equal. No wheezes rales or rhonchi. No retractions HEART: Regular rate and rhythm without murmurs, rubs, gallops. ABDOMEN: Soft, nontender, nondistended abdomen. No guarding, no rebound. No masses appreciated. Normal bowel sounds present. No CVA tenderness bilaterally. No hepatosplenomegaly. NEUROLOGICAL: Normal speech, normal gait. Normal sensory, motor exams PSYCH: Normal mood, normal affect. SKIN: Warm, Dry, normal turgor, no rashes or lesions noted. - INFECTION CONTROL TRAVEL OUTSIDE OF THE [place] IN LAST 30 DAYS: No Course - Re-evaluation Re-evalutation: 09/24/18 19:16 Patient is an afebrile, well-hydrated, 28-year-old female who presents to the ED with acute pharyngitis, suspect viral. Vitals are acceptable. PE is otherwise unremarkable. Rapid strep neg, cx pending. No other labs or imaging warranted at this time based on H&P. Patient has no significant cardiopulmonary or immunocompromised medical conditions. Patient's lungs are clear to auscultation bilaterally without tachycardia, hypoxia, or tachypnea. Patient is tolerating p.o. without any difficulties. Low suspicion for any meningitis, sepsis, peritonsillar/pharyngeal abscess, respiratory compromise, Maciej's, or other emergent systemic condition at this time. Patient is aware this condition can change from initial presentation and she needs to monitor symptoms closely. Conservative measures otherwise for symptoms. Recheck with your PCM in 2-3 days. Return to the ED with any worsening/concerning symptoms otherwise as reviewed in discharge. Patient is in agreement. - Vital Signs Vital signs: Temp Pulse Resp BP Pulse Ox 97.8 F 89 16 140/82 H 100 09/24/18 17:45 09/24/18 17:45 09/24/18 17:45 09/24/18 17:45 09/24/18 17:45 Discharge - Discharge Clinical Impression: Acute pharyngitis Qualifiers: Pharyngitis/tonsillitis etiology: unspecified etiology Qualified Code(s): J02.9 - Acute pharyngitis, unspecified Condition: Stable Disposition: HOME, SELF-CARE Additional Instructions: Maintain adequate fluid intake Take meds as directed Salt water gargles, throat sprays, mouthwash rinse, peroxide gargles tylenol/ibuprofen as needed over the counter cold medication as needed for symptoms F/u: with your PCM in 2-3 days for a recheck Consider consult with ENT for ongoing/worsening symptoms Return to the ED with any fever, worsening pain, chest pain, neck pain/stiffness, shortness of breath, cough, drooling, trouble swallowing/breathing, abdominal pain, n/v/d, rash, or worsening/concerning symptoms otherwise. Forms: Elevated Blood Pressure Referrals: CEDRIC REAVES DO [ASSOCIATE] - Follow up as needed
[2018-09-24 19:36] VITALS: BP 138/71
== END 2018-09-24 19:59 | disposition home or self-care (01) ==
LOC: ER 17:34
DX: J02.9 Acute pharyngitis, unspecified (principal); R05 Cough; J35.1 Hypertrophy of tonsils
CPT/HCPCS: 87070; 87077; 87880; 99283

== ENCOUNTER 2019-01-26 17:24 | Emergency (ER) | payer SELFPAY ==
[2019-01-26 17:30] VITALS: BP 137/92
[2019-01-26] MEDS ORDERED: DIPHENHYDRAMINE HCL 25 MG/10 ML UDC PO ONE (18:06)
[2019-01-26] MEDS ORDERED: PROCHLORPERAZINE EDISYLATE INJ 10 MG/2 ML VIAL IV ONE (18:06)
--- NOTE | 2019-01-26 18:09 | ER Document Report ---
ED Medical Screen (RME) - General Chief Complaint: Headache Stated Complaint: HEADACHE Time Seen by Provider: 01/26/19 18:03 Mode of Arrival: Ambulatory Information source: Patient Notes: Patient is a 29-year-old female with a history of headaches but not necessarily migraines who presents to the ER today for migraine x2 to 3 days worsening in intensity despite taking ibuprofen. Patient admits to light sensitivity with it, denies any numbness or tingling, blurred vision, fever, back pain, cough or any other symptoms. TRAVEL OUTSIDE OF THE [place] IN LAST 30 DAYS: No - Related Data Allergies/Adverse Reactions: No Known Allergies Allergy (Verified 12/11/18 03:38) Past Medical History - General Information source: Patient - Social History Frequency of alcohol use: Occasional Drug Abuse: None Renal/ Medical History: Denies: Hx Peritoneal Dialysis - Immunizations Immunizations up to date: Yes Hx Diphtheria, Pertussis, Tetanus Vaccination: Yes Review of Systems - Review of Systems Neurological/Psychological: See HPI Physical Exam - Vital signs Vitals: Temp Pulse Resp BP Pulse Ox 97.9 F 116 H 16 137/92 H 97 01/26/19 17:29 01/26/19 17:29 01/26/19 17:29 01/26/19 17:29 01/26/19 17:29 - Notes Notes: PHYSICAL EXAMINATION: GENERAL: Uncomfortable-appearing and in no acute distress. NEUROLOGICAL: Cranial nerves grossly intact. Normal sensory/motor exams. Course - Vital Signs Vital signs: Temp Pulse Resp BP Pulse Ox 97.9 F 116 H 16 137/92 H 97 01/26/19 17:29 01/26/19 17:29 01/26/19 17:29 01/26/19 17:29 01/26/19 17:29
[2019-01-26 18:39] LABS: ABSOLUTE BASOPHILS # (AUTO) 0.1 10^3/uL (0.0-0.2); ABSOLUTE LYMPHOCYTES (AUTO) 2.6 10^3/uL (0.5-4.7); ABSOLUTE MONOCYTES (AUTO) 0.9 10^3/uL (0.1-1.4); ABSOLUTE NEUT (AUTO) 6.1 10^3/uL (1.7-8.2); BASOPHILS % (AUTO) 0.7 % (0-2); EOSINOPHILS % (AUTO) 0.3 % (0-6); HEMATOCRIT 42.4 % (36.0-47.0); MEAN CORPUSCULAR HEMOGLOBIN 26.3 pg (27.0-33.4); MEAN CORPUSCULAR HGB CONC 33.1 g/dL (32.0-36.0); MEAN CORPUSCULAR VOLUME 80 fl (80-97); MONOCYTES % (AUTO) 9.1 % (3-13); PLATELET COUNT 383 10^3/uL (150-450); RED BLOOD COUNT 5.34 10^6/uL (3.72-5.28); RED CELL DISTRIBUTION WIDTH 14.5 % (11.5-14.0); SEGMENTED NEUTROPHILS % (AUTO) 62.9 % (42-78); TOTAL CELLS COUNTED % (AUTO) 100 %; WHITE BLOOD COUNT 9.6 10^3/uL (4.0-10.5)
[2019-01-26 18:53] LABS: ANION GAP 10 (5-19); BLOOD UREA NITROGEN 15 mg/dL (7-20); CALCIUM 9.3 mg/dL (8.4-10.2); CARBON DIOXIDE 29 mmol/L (22-30); CHLORIDE 98 mmol/L (98-107); GLUCOSE 106 mg/dL (75-110); POTASSIUM 3.8 mmol/L (3.6-5.0); SODIUM 136.9 mmol/L (137-145)
[2019-01-26 18:57] LABS: APPEARANCE,URINE CLEAR; BILIRUBIN,URINE NEGATIVE (NEGATIVE); COLOR,URINE AMBER; GLUCOSE, URINE NEGATIVE (NEGATIVE); KETONES,URINE TRACE mg/dL (NEGATIVE); LEUKOCYTE ESTERASE,URINE NEGATIVE (NEGATIVE); NITRITE,URINE NEGATIVE (NEGATIVE); PROTEIN,URINE 30 mg/dL (NEGATIVE); URINE SPECIFIC GRAVITY 1.031
--- NOTE | 2019-01-26 19:52 | ER Document Report ---
ED General - General Chief Complaint: Headache Stated Complaint: HEADACHE Time Seen by Provider: 01/26/19 18:03 Mode of Arrival: Ambulatory TRAVEL OUTSIDE OF THE [place] IN LAST 30 DAYS: No - Related Data Allergies/Adverse Reactions: No Known Allergies Allergy (Verified 12/11/18 03:38) Past Medical History - General Information source: Patient - Social History Smoking Status: Never Smoker Frequency of alcohol use: Occasional Drug Abuse: None Family History: Reviewed & Not Pertinent Patient has suicidal ideation: No Patient has homicidal ideation: No Renal/ Medical History: Denies: Hx Peritoneal Dialysis - Immunizations Immunizations up to date: Yes Hx Diphtheria, Pertussis, Tetanus Vaccination: Yes Physical Exam - Vital signs Vitals: Temp Pulse Resp BP Pulse Ox 97.9 F 116 H 16 137/92 H 97 01/26/19 17:29 01/26/19 17:29 01/26/19 17:29 01/26/19 17:29 01/26/19 17:29 Course - Vital Signs Vital signs: Temp Pulse Resp BP Pulse Ox 97.9 F 116 H 16 137/92 H 97 01/26/19 17:29 01/26/19 17:29 01/26/19 17:29 01/26/19 17:29 01/26/19 17:29 - Laboratory Result Diagrams: 01/26/19 18:28 01/26/19 18:28 Laboratory results interpreted by me: 01/26/19 01/26/19 01/26/19 18:28 18:28 18:36 RBC 5.34 H MCH 26.3 L RDW 14.5 H Sodium 136.9 L Urine Protein 30 H Urine Ketones TRACE H Urine Urobilinogen 2.0 H Urine Ascorbic Acid 20 H
--- NOTE | 2019-01-26 20:01 | ER Document Report ---
Doctor's Note Notes: 01/26/19 20:01 Please note that the patient did elope prior to me being able to evaluate. I entered the room and the patient was not present. I did not see her participate in the care of this patient.
== END 2019-01-26 20:07 | disposition left against medical advice (07) ==
LOC: ER 17:24
DX: G43.909 Migraine, unspecified, not intractable, without status migrainosus (principal); H53.149 Visual discomfort, unspecified; Z53.20 Procedure and treatment not carried out because of patient's decision for unspecified reasons
CPT/HCPCS: 99281; 96374; 36415; 85025; 81025; 80048; 81001; J3490; J0780

== ENCOUNTER 2019-08-05 17:13 | Emergency (ER) | payer SELFPAY ==
[2019-08-05] MEDS ORDERED: NORMAL SALINE 1000 ML 1,000 ML IV ONE (18:05)
[2019-08-05] MEDS ORDERED: ONDANSETRON HCL INJ/PF 4 MG/2 ML SDV IV ONE (18:07)
--- NOTE | 2019-08-05 18:08 | ER Document Report ---
ED Medical Screen (RME) - General Chief Complaint: Nausea/Vomiting Stated Complaint: VOMITING/NAUSEA Time Seen by Provider: 08/05/19 18:02 Information source: Patient Notes: Patient presents complaining of nausea vomiting diarrhea for the past 4 days. Patient complains of periumbilical abdominal pain. Patient denies any fever or urinary symptoms. Patient does report multiple sick contacts at work. I have greeted and performed a rapid initial assessment of this patient. A comprehensive ED assessment and evaluation of the patient, analysis of test results and completion of the medical decision making process will be conducted by additional ED providers. TRAVEL OUTSIDE OF THE [place] IN LAST 30 DAYS: No - Related Data Allergies/Adverse Reactions: No Known Allergies Allergy (Verified 08/05/19 18:01) Past Medical History - Social History Chew tobacco use (# tins/day): No Frequency of alcohol use: None Drug Abuse: None Renal/ Medical History: Denies: Hx Peritoneal Dialysis - Immunizations Immunizations up to date: Yes Hx Diphtheria, Pertussis, Tetanus Vaccination: Yes Physical Exam - Vital signs Vitals: Temp Pulse Resp BP Pulse Ox 98.1 F 106 H 20 146/84 H 98 08/05/19 17:29 08/05/19 17:29 08/05/19 17:29 08/05/19 17:29 08/05/19 17:29 - Abdominal Tenderness: Tender - Periumbilical Course - Vital Signs Vital signs: Temp Pulse Resp BP Pulse Ox 98.1 F 106 H 20 146/84 H 98 08/05/19 18:01 08/05/19 17:29 08/05/19 18:01 08/05/19 17:29 08/05/19 18:01
[2019-08-05 18:35] LABS: ABSOLUTE BASOPHILS # (AUTO) 0.1 10^3/uL (0.0-0.2); ABSOLUTE EOSINOPHILS # (AUTO) 0.1 10^3/uL (0.0-0.6); ABSOLUTE LYMPHOCYTES (AUTO) 2.6 10^3/uL (0.5-4.7); ABSOLUTE MONOCYTES (AUTO) 0.4 10^3/uL (0.1-1.4); ABSOLUTE NEUT (AUTO) 4.1 10^3/uL (1.7-8.2); BASOPHILS % (AUTO) 0.8 % (0-2); EOSINOPHILS % (AUTO) 0.9 % (0-6); HEMATOCRIT 39.1 % (36.0-47.0); HEMOGLOBIN 12.8 g/dL (12.0-15.5); LYMPHOCYTES % (AUTO) 35.9 % (13-45); MEAN CORPUSCULAR HEMOGLOBIN 26.5 pg (27.0-33.4); MEAN CORPUSCULAR HGB CONC 32.8 g/dL (32.0-36.0); MEAN CORPUSCULAR VOLUME 81 fl (80-97); MONOCYTES % (AUTO) 5.9 % (3-13); PLATELET COUNT 417 10^3/uL (150-450); RED BLOOD COUNT 4.85 10^6/uL (3.72-5.28); RED CELL DISTRIBUTION WIDTH 14.8 % (11.5-14.0); SEGMENTED NEUTROPHILS % (AUTO) 56.5 % (42-78); TOTAL CELLS COUNTED % (AUTO) 100 %; WHITE BLOOD COUNT 7.3 10^3/uL (4.0-10.5)
[2019-08-05 18:51] LABS: ALBUMIN 3.9 g/dL (3.5-5.0); ALKALINE PHOSPHATASE 65 U/L (38-126); ANION GAP 10 (5-19); ASPARTATE AMINO TRANSFERASE 22 U/L (14-36); BILIRUBIN,DIRECT 0.1 mg/dL (0.0-0.4); BILIRUBIN,TOTAL 0.6 mg/dL (0.2-1.3); BLOOD UREA NITROGEN 18 mg/dL (7-20); CALCIUM 9.2 mg/dL (8.4-10.2); CARBON DIOXIDE 29 mmol/L (22-30); CHLORIDE 102 mmol/L (98-107); GLUCOSE 91 mg/dL (75-110)
--- NOTE | 2019-08-05 19:31 | ER Document Report ---
ED General - General Chief Complaint: Nausea/Vomiting Stated Complaint: VOMITING/NAUSEA Time Seen by Provider: 08/05/19 18:02 Primary Care Provider: [facility] [Provider Group] - Follow up in 1 week TRAVEL OUTSIDE OF THE [place] IN LAST 30 DAYS: No - HPI Notes: 29-year-old female to the emergency department with complaints of generalized abdominal pain with nausea vomiting and diarrhea for the past 4 days. She states that she has been vomiting predominantly at night but she did have one episode of vomiting today. She states that the nausea and vomiting is worse than the diarrhea. She denies any fevers or chills. She denies any chance for . She has never had surgery in her abdomen before. She is not recently been traveling or using antibiotics. She denies any fevers or chills. - Related Data Allergies/Adverse Reactions: No Known Allergies Allergy (Verified 08/05/19 18:01) Past Medical History - General Information source: Patient - Social History Smoking Status: Never Smoker Chew tobacco use (# tins/day): No Frequency of alcohol use: None Drug Abuse: None Family History: Reviewed & Not Pertinent Patient has suicidal ideation: No Patient has homicidal ideation: No Renal/ Medical History: Denies: Hx Peritoneal Dialysis - Immunizations Immunizations up to date: Yes Hx Diphtheria, Pertussis, Tetanus Vaccination: Yes Review of Systems - Review of Systems Constitutional: denies: Chills, Fever EENT: No symptoms reported Cardiovascular: denies: Chest pain, Palpitations, Syncope, Dizziness, Lightheaded Respiratory: denies: Cough, Short of breath Gastrointestinal: Abdominal pain, Diarrhea, Nausea, Vomiting Genitourinary: No symptoms reported Female Genitourinary: denies: Musculoskeletal: No symptoms reported Skin: No symptoms reported Hematologic/Lymphatic: No symptoms reported Neurological/Psychological: No symptoms reported -: Yes All other systems reviewed and negative Physical Exam - Vital signs Vitals: Temp Pulse Resp BP Pulse Ox 98.1 F 106 H 20 146/84 H 98 08/05/19 17:29 08/05/19 17:29 08/05/19 17:29 08/05/19 17:29 08/05/19 17:29 Interpretation: Normal - General General appearance: Appears well, Alert In distress: None - HEENT Head: Normocephalic, Atraumatic Eyes: Normal Pupils: PERRL Ears: Normal External canal: Normal Tympanic membrane: Normal Sinus: Normal Nasal: Normal Mouth/Lips: Normal Mucous membranes: Normal Pharynx: Normal Neck: Normal, Supple - Respiratory Respiratory status: No respiratory distress Chest status: Nontender Breath sounds: Normal. No: Rales, Rhonchi, Stridor, Wheezing Chest palpation: Normal - Cardiovascular Rhythm: Regular Heart sounds: Normal auscultation Murmur: No - Abdominal Inspection: Normal Distension: No distension Bowel sounds: Normal Tenderness: Tender - There is tenderness to palpation of the general abdomen. No focal tenderness to palpation. No guarding or rebound. Negative McBurney's point and negative Ray sign. Negative CVA tenderness bilaterally Organomegaly: No organomegaly - Back Back: Normal, Nontender. No: CVA tenderness - Neurological Neuro grossly intact: Yes Cognition: Normal Orientation: AAOx4 [place] Coma Scale Eye Opening: Spontaneous [place] Coma Scale Verbal: Oriented Aleks Coma Scale Motor: Obeys Commands Aleks Coma Scale Total: 15 Speech: Normal Cranial nerves: Normal. No: Facial palsy, Forehead sparing, Gaze palsy, Sensory deficit, Tongue deviation Cerebellar coordination: Normal Motor strength normal: LUE, RUE, LLE, RLE Additional motor exam normals: Equal coal getter. No: Pronator drift Sensory: Normal - Psychological Associated symptoms: Normal affect, Normal mood - Skin Skin Temperature: Warm Skin Moisture: Dry Skin Color: Normal Course - Vital Signs Vital signs: Temp Pulse Resp BP Pulse Ox 98.1 F 106 H 20 146/84 H 98 08/05/19 18:01 08/05/19 17:29 08/05/19 18:01 08/05/19 17:29 08/05/19 18:01 - Laboratory Result Diagrams: 08/05/19 18:13 08/05/19 18:13 Laboratory results interpreted by me: 08/05/19 08/05/19 18:13 19:25 MCH 26.5 L RDW 14.8 H Urine Protein 100 H Ur Leukocyte Esterase MODERATE H Discharge - Discharge Clinical Impression: Generalized abdominal pain Nausea & vomiting Qualifiers: Vomiting type: unspecified Vomiting Intractability: non-intractable Qualified Code(s): R11.2 - Nausea with vomiting, unspecified Diarrhea Qualifiers: Diarrhea type: unspecified type Qualified Code(s): R19.7 - Diarrhea, unspecified UTI (urinary tract infection) Qualifiers: Urinary tract infection type: acute cystitis Hematuria presence: without hematuria Qualified Code(s): N30.00 - Acute cystitis without hematuria Condition: Stable Disposition: HOME, SELF-CARE Instructions: Abdominal Pain ([facility]), Diarrhea, Nonspecific ([facility]), Vomiting ([facility]), Urinary Tract Infection ([facility]) Additional Instructions: PUSH FLUIDS. BLAND DIET OF BANANAS, RICE, APPLESAUCE, TOAST, JELLO. Prescriptions: Dicyclomine HCl [Bentyl 20 mg Tablet] 20 mg PO QID PRN #10 tablet PRN Reason: Cephalexin Monohydrate [Keflex 500 mg Capsule] 500 mg PO BID #14 capsule Ondansetron [Zofran Odt 4 mg Tablet] 1 - 2 tab PO Q4H PRN #15 tab.rapdis PRN Reason: For Nausea/Vomiting Referrals: [facility] [Provider Group] - Follow up in 1 week
[2019-08-05] MEDS ORDERED: KETOROLAC TROMETHAMINE INJ/PF 30 MG/1 ML SDV IV ONE (19:49)
[2019-08-05 19:57] LABS: APPEARANCE,URINE CLOUDY; BILIRUBIN,URINE NEGATIVE (NEGATIVE); GLUCOSE, URINE NEGATIVE (NEGATIVE); KETONES,URINE NEGATIVE (NEGATIVE); LEUKOCYTE ESTERASE,URINE MODERATE (NEGATIVE); NITRITE,URINE NEGATIVE (NEGATIVE); PROTEIN,URINE 100 mg/dL (NEGATIVE); URINE SPECIFIC GRAVITY 1.029; UROBILINOGEN,URINE NEGATIVE mg/dL (<2.0)
[2019-08-05 19:58] LABS: COLOR,URINE DARK YELLOW
[2019-08-05 21:13] VITALS: BP 139/89
== END 2019-08-05 21:04 | disposition home or self-care (01) ==
LOC: ER 17:13
DX: R10.84 Generalized abdominal pain (principal); N30.00 Acute cystitis without hematuria; R11.2 Nausea with vomiting, unspecified; R19.7 Diarrhea, unspecified
CPT/HCPCS: 99284; 96361; 96374; 96375; 36415; 87086; 83690; 84703; 85025; 80053; 81001; J1885; J2405; J7030

== ENCOUNTER 2019-10-22 11:48 | Emergency (ER) | payer SELFPAY ==
--- NOTE | 2019-10-22 12:06 | ER Document Report ---
ED GI/ - General Chief Complaint: Urinary Problem Stated Complaint: POSSIBLE UTI Time Seen by Provider: 10/22/19 11:58 Primary Care Provider: [facility] [Provider Group] - Follow up as needed Mode of Arrival: Ambulatory Information source: Patient Notes: 29-year-old female presents to ED for complaint of bilateral flank pain for about 2 weeks. She states she also has pain to the bladder. She states she has not had burning frequency urgency but every time she urinates she does have pelvic pain. She is alert oriented respirations regular nonlabored speaking in full sentences. She states the last time she had symptoms like this it was a UTI and she had to get antibiotics. TRAVEL OUTSIDE OF THE [place] IN LAST 30 DAYS: No - HPI Patient complains to provider of: Flank pain, Pelvic pain Onset: Other - 2 weeks Timing/Duration: Gradual, Intermittent Quality of pain: Achy Severity at maximum: Moderate Severity in ED: Moderate Pain Level: 3 Location: Left flank, Right flank, Pelvis Vaginal bleeding (Compared to normal period): None LMP: When he first Associated symptoms: Other - Bilateral flank pain pelvic pain pain with urination Exacerbated by: Other - Urination Relieved by: Denies Similar symptoms previously: Yes Recently seen / treated by doctor: No - Related Data Allergies/Adverse Reactions: cephalexin [From Keflex] Allergy (Verified 10/22/19 11:55) Past Medical History - General Information source: Patient - Social History Smoking Status: Current Some Day Smoker Chew tobacco use (# tins/day): No Frequency of alcohol use: Social Drug Abuse: None Family History: Reviewed & Not Pertinent Patient has suicidal ideation: No Patient has homicidal ideation: No - Past Medical History Cardiac Medical History: Reports: None Pulmonary Medical History: Reports: None EENT Medical History: Reports: None Neurological Medical History: Reports: None Endocrine Medical History: Reports: None Renal/ Medical History: Reports: None Malignancy Medical History: Reports: None GI Medical History: Reports: None Musculoskeletal Medical History: Reports None Skin Medical History: Reports None Psychiatric Medical History: Reports: None Traumatic Medical History: Reports: None Infectious Medical History: Reports: None Surgical Hx: Negative Past Surgical History: Reports: None - Immunizations Immunizations up to date: Yes Hx Diphtheria, Pertussis, Tetanus Vaccination: Yes Review of Systems - Review of Systems Constitutional: No symptoms reported EENT: No symptoms reported Cardiovascular: No symptoms reported Respiratory: No symptoms reported Gastrointestinal: No symptoms reported Genitourinary: Flank pain, Other - Pain with urination Female Genitourinary: No symptoms reported Musculoskeletal: No symptoms reported Skin: No symptoms reported Hematologic/Lymphatic: No symptoms reported Neurological/Psychological: No symptoms reported -: Yes All other systems reviewed and negative Physical Exam - Vital signs Vitals: Temp Pulse Resp BP Pulse Ox 97.6 F 95 16 140/87 H 95 10/22/19 11:56 10/22/19 11:56 10/22/19 11:56 10/22/19 11:56 10/22/19 11:56 Interpretation: Normal - General General appearance: Appears well, Alert - HEENT Head: Normocephalic, Atraumatic Eyes: Normal Pupils: PERRL - Respiratory Respiratory status: No respiratory distress Chest status: Nontender Breath sounds: Normal Chest palpation: Normal - Cardiovascular Rhythm: Regular Heart sounds: Normal auscultation Murmur: No - Abdominal Inspection: Normal Distension: No distension Bowel sounds: Normal Tenderness: Tender - Mild suprapubic tenderness Organomegaly: No organomegaly - Back Back: CVA tenderness - Extremities General upper extremity: Normal inspection, Nontender, Normal color, Normal ROM, Normal temperature General lower extremity: Normal inspection, Nontender, Normal color, Normal ROM, Normal temperature, Normal weight bearing. No: Jonatan's sign - Neurological Neuro grossly intact: Yes Cognition: Normal Orientation: AAOx4 Aleks Coma Scale Eye Opening: Spontaneous Aleks Coma Scale Verbal: Oriented Aleks Coma Scale Motor: Obeys Commands [place] Coma Scale Total: 15 Speech: Normal Motor strength normal: LUE, RUE, LLE, RLE Sensory: Normal - Psychological Associated symptoms: Normal affect, Normal mood - Skin Skin Temperature: Warm Skin Moisture: Dry Skin Color: Normal Course - Re-evaluation Re-evalutation: 10/22/19 21:50 Urinalysis and ultrasound were negative for any acute processes it did show some fibroid tumors in the uterus. I did discuss this with the patient and discussed the need to follow-up with her primary care or TRANSCRIPT CLERK. Her primary care is the health department so she will follow-up with either the health department or TRANSCRIPT CLERK. Patient was discharged home. She is - Vital Signs Vital signs: Temp Pulse Resp BP Pulse Ox 97.8 F 101 H 18 134/92 H 93 10/22/19 13:49 10/22/19 13:49 10/22/19 13:49 10/22/19 13:49 10/22/19 13:49 - Laboratory Laboratory results interpreted by me: 10/22/19 12:10 Urine Urobilinogen 2.0 H - Diagnostic Test Radiology reviewed: Image reviewed, Reports reviewed Discharge - Discharge Clinical Impression: Fibroid uterus Qualifiers: Uterine leiomyoma location: unspecified location Qualified Code(s): D25.9 - Leiomyoma of uterus, unspecified Condition: Stable Disposition: HOME, SELF-CARE Instructions: [facility] - [place] Additional Instructions: You were seen today for suprapubic pain. Your ultrasound did show a probable uterine fibroid. These can be uncomfortable at times. Please follow-up with the health department or TRANSCRIPT CLERK to have this further evaluated to see if you need any further treatment at this time. Fibroids Fibroids are benign growths in the uterus. They can cause enlargement of the uterus, irregular bleeding, sever bleeding with periods, and abdominal pain. Anemia may result if periods are heavy. Fibroids tend to grow until menopause, then slowly shrink. If fibroids cause severe symptoms, they can be treated surgically. Call or return if vaginal bleeding or pain becomes severe. Ibuprofen Ibuprofen is an excellent, safe drug for pain control. In addition, it has potent antiinflammatory effects which are beneficial, especially in the treatment of injuries, arthritis, or tendonitis. It's best to take ibuprofen with food. Persons with ulcer disease or allergy to aspirin should notify their physician of this before taking ibuprofen. Take the medication exactly as prescribed. Don't take additional doses unless instructed to do so by your doctor. If you develop wheezing, shortness of breath, hives, faintness, stomach pain, vomiting, or dark black stools, return for re-evaluation at once. Acetaminophen Acetaminophen may be taken for pain relief or fever control. It's much safer than aspirin, offering a wider range of "safe" dosages. It is safe during . Some brand names are Tylenol, Panadol, Datril, Anacin 3, Tempra, and Liquiprin. Acetaminophen can be repeated every four hours. The following are maximum recommended dosages: WEIGHT Dose Drops Elixir Chewable(80mg) (LBS.) drprs=droppers tsp=teaspoon 6 40 mg .4 ml (1/2) 6-11 80 mg .8 ml (full) 1/2 tsp 1 tab 12-16 120 mg 1 1/2 drprs 3/4 tsp 1 1/2 tabs 17-23 160 mg 2 drprs 1 tsp 2 tabs 24-30 240 mg 3 drprs 1 1/2 tsp 3 tabs 30-35 320 mg 2 tsp 4 tabs 36-41 360 mg 2 1/4 tsp 4 1/2 tabs 42-47 400 mg 2 1/2 tsp 5 tabs 48-53 480 mg 3 tsp 6 tabs 54-59 520 mg 3 1/4 tsp 6 1/2 tabs 60-64 560 mg 3 1/2 tsp 7 tabs 65-70 600 mg 3 3/4 tsp 7 1/2 tabs 71-76 640 mg 4 tsp 8 tabs 77-82 720 mg 4 1/2 tsp 9 tabs 83-88 800 mg 5 tsp 10 tabs >89 pounds or adults 650 mg to 900 mg Acetaminophen can be repeated every four hours. Maximum daily dose not to exceed 4000 mg. These maximum recommended dosages are slightly higher than the dosages writte n on the product container, but these dosages are very safe and well below the toxic dosage for acetaminophen. FOLLOW-UP CARE: If you have been referred to a physician for follow-up care, call the physicians office for an appointment as you were instructed or within the next two days. If you experience worsening or a significant change in your symptoms, notify the physician immediately or return to the Emergency Department at any time for re-evaluation. Forms: Elevated Blood Pressure, Smoking Cessation Education, Return to Work Referrals: [facility] [Provider Group] - Follow up as needed
[2019-10-22 12:26] LABS: APPEARANCE,URINE SLIGHTLY-CLOUDY; BILIRUBIN,URINE NEGATIVE (NEGATIVE); COLOR,URINE YELLOW; GLUCOSE, URINE NEGATIVE (NEGATIVE); KETONES,URINE NEGATIVE (NEGATIVE); PROTEIN,URINE NEGATIVE (NEGATIVE); URINE SPECIFIC GRAVITY 1.019
--- NOTE | 2019-10-22 13:13 | RADIOLOGY REPORT (SQ) ---
EXAM DESCRIPTION: U/S RETROPERITON (RENAL/AORTA) COMPLETED DATE/TIME: 10/22/2019 1:03 pm REASON FOR STUDY: flank pain COMPARISON: 09/11/2012 TECHNIQUE: Dynamic and static grayscale images acquired of the kidneys and bladder and recorded on P ACS. Additional selected color Doppler and spectral images recorded. LIMITATIONS: None. FINDINGS: RIGHT KIDNEY: Normal size measuring 9.9 cm. Normal echogenicity. No solid or suspicious ma sses. No hydronephrosis. No calcifications. LEFT KIDNEY: Normal size measuring 9.5 cm. Normal echogenicity. No solid or suspicious masses. No hy dronephrosis. No calcifications. BLADDER: Decompressed. Not well evaluated. OTHER FINDINGS: Enlarged heterogeneous uterus, partially evaluated. IMPRESSION: Normal renal ultrasound. No hydronephrosis. Partially evaluated enlarged heterogeneous uterus likely secondary to uterine leiomyoma. TECHNICAL DOCUMENTATION: JOB ID: [id number] [employer]- All Rights Reserved Reading location - IP/workstation name: [email or web address]
[2019-10-22 13:50] VITALS: BP 134/92
== END 2019-10-22 14:04 | disposition home or self-care (01) ==
LOC: ER 11:48
DX: D25.9 Leiomyoma of uterus, unspecified (principal); R39.198 Other difficulties with micturition; R10.9 Unspecified abdominal pain; R39.89 Other symptoms and signs involving the genitourinary system; R10.2 Pelvic and perineal pain; F17.200 Nicotine dependence, unspecified, uncomplicated
CPT/HCPCS: 76770; 81001; 81025; 99284

== ENCOUNTER 2020-01-07 12:30 | Emergency (ER) | payer SELFPAY ==
--- NOTE | 2020-01-07 13:23 | ER Document Report ---
ED Medical Screen (RME) - General Chief Complaint: Eye Problem Stated Complaint: EYE SWELLING Time Seen by Provider: 01/07/20 13:22 Mode of Arrival: Ambulatory Information source: Patient Notes: 30-year-old female presents to ED for cough because she has swollen red puffy eyelids. She states she has a large stye. She states is been there for several weeks and she has used hot and cold compresses and is not getting any better. She states is very itchy. I have consulted Marques Mendoza who will come and examine the eye. I have greeted and performed a rapid initial assessment of this patient. A comprehensive ED assessment and evaluation of the patient, analysis of test results and completion of medical decision making process will be conducted by an additional ED providers. TRAVEL OUTSIDE OF THE [place] IN LAST 30 DAYS: No - Related Data Allergies/Adverse Reactions: cephalexin [From Keflex] Allergy (Verified 10/22/19 11:55) Past Medical History - Immunizations Immunizations up to date: Yes Hx Diphtheria, Pertussis, Tetanus Vaccination: Yes Physical Exam - Vital signs Vitals: Temp Pulse Resp BP Pulse Ox 98.2 F 97 16 143/95 H 96 01/07/20 12:34 01/07/20 12:34 01/07/20 12:34 01/07/20 12:34 01/07/20 12:34 Course - Vital Signs Vital signs: Temp Pulse Resp BP Pulse Ox 98.2 F 97 16 143/95 H 96 01/07/20 12:34 01/07/20 12:34 01/07/20 12:34 01/07/20 12:34 01/07/20 12:34
--- NOTE | 2020-01-07 14:32 | ER Document Report ---
ED General - General Chief Complaint: Eye Problem Stated Complaint: EYE SWELLING Time Seen by Provider: 01/07/20 13:22 Mode of Arrival: Ambulatory Notes: 30-year-old female presents emergency department complaining of pain to her right eyelid mostly on the upper lid but a little bit on the lower lid, redness and swelling as well as watery discharge from her right eye since . Denies any pain with eye movement, denies any foreign body sensation, denies any blurry vision. Does not wear contacts, does not use eye make-up. Has not had any fevers, has not had any injury to the eye. TRAVEL OUTSIDE OF THE [place] IN LAST 30 DAYS: No - Related Data Allergies/Adverse Reactions: cephalexin [From [employer]] Allergy (Verified 10/22/19 11:55) Past Medical History - General Information source: Patient - Social History Smoking Status: Current Some Day Smoker Frequency of alcohol use: Social Drug Abuse: None Family History: Reviewed & Not Pertinent Patient has homicidal ideation: No - Immunizations Immunizations up to date: Yes Hx Diphtheria, Pertussis, Tetanus Vaccination: Yes Review of Systems - Review of Systems Constitutional: No symptoms reported EENT: See HPI Cardiovascular: No symptoms reported Respiratory: No symptoms reported Skin: See HPI, Change in color Neurological/Psychological: No symptoms reported Physical Exam - Vital signs Vitals: Temp Pulse Resp BP Pulse Ox 98.2 F 97 16 143/95 H 96 01/07/20 12:34 01/07/20 12:34 01/07/20 12:34 01/07/20 12:34 01/07/20 12:34 Interpretation: Hypertensive - Notes Notes: GENERAL: Alert, interacts well. No acute distress. HEAD: Normocephalic, atraumatic EYES: Pupils equal, round and reactive to light, extraocular movements intact. No pain with extraocular movements, right upper lid is mildly swollen, no difficulty opening or closing the eye although it does cause pain when I palpate the upper eyelid, there is erythema to the upper lid and a small amount of er ythema and swelling to the medial aspect of the lower lid, there is no discharge, there is no fluctuance. No evidence of hordeolum or chalazion. No injection to the conjunctiva. No discharge, no increased tearing. ENT: Oral mucosa moist, tongue midline. NECK: Full range of motion, supple, trachea midline. LUNGS: no respiratory distress. EXTREMITIES: Moves all 4 extremities spontaneously, walks without difficulty. NEUROLOGICAL: Alert and oriented x3, normal speech. PSYCH: Normal mood, normal affect. - General General appearance: Appears well, Alert In distress: None - HEENT Visual acuity- Right eye: 20/50 Visual acuity- Left eye: 20/40 Visual acuity- Both eyes: 20/40 Corrective lenses worn: Yes - pt states she wears corrective lenses but was not wearing them at this time Course - Re-evaluation Re-evalutation: 01/07/20 14:30 Consistent with preseptal cellulitis, will treat with clindamycin. Treat with warm compresses. No evidence of orbital cellulitis as there is no pain with extraocular movements. Discharged home. - Vital Signs Vital signs: Temp Pulse Resp BP Pulse Ox 98.2 F 97 16 143/95 H 96 01/07/20 13:19 01/07/20 12:34 01/07/20 12:34 01/07/20 12:34 01/07/20 12:34 Discharge - Discharge Clinical Impression: Periorbital cellulitis of right eye Condition: Stable Disposition: HOME, SELF-CARE Additional Instructions: Hold warm compresses on your eye for 10 minutes 4 times a day. Wash gently with no more tears baby shampoo once a day. Take the clindamycin 450 mg 3 times a day for the next 7 days. Return to the emergency department if you have not seen any improvement in the next 48 hours, if you have worsened, if you develop pain to move your eyeball or if you have fevers. Prescriptions: Clindamycin HCl [Cleocin 150 mg Capsule] 450 mg PO TID #63 capsule
[2020-01-07] MEDS ORDERED: CLINDAMYCIN HCL 150 MG CAPSULE PO ONE (14:36)
[2020-01-07 14:55] VITALS: BP 135/86
== END 2020-01-07 14:52 | disposition home or self-care (01) ==
LOC: ER 12:30
DX: L03.213 Periorbital cellulitis (principal); Z88.1 Allergy status to other antibiotic agents; F17.200 Nicotine dependence, unspecified, uncomplicated
CPT/HCPCS: 99283

== ENCOUNTER 2020-04-14 21:00 | Inpatient (IN) | payer SELFPAY ==
[2020-04-14 21:54] LABS: HEMATOCRIT 40.3 % (36.0-47.0); MEAN CORPUSCULAR HEMOGLOBIN 25.3 pg (27.0-33.4); MEAN CORPUSCULAR HGB CONC 32.3 g/dL (32.0-36.0); MEAN CORPUSCULAR VOLUME 78 fl (80-97); PLATELET COUNT 392 10^3/uL (150-450); RED BLOOD COUNT 5.14 10^6/uL (3.72-5.28); RED CELL DISTRIBUTION WIDTH 15.2 % (11.5-14.0); VENOUS BLOOD BASE EXCESS 4.2 mmol/L; VENOUS BLOOD HCO3 29.3 mmol/L (20-32); VENOUS BLOOD PCO2 45.4 mmHg (35-63); VENOUS BLOOD PH 7.43 (7.30-7.42); WHITE BLOOD COUNT 24.8 10^3/uL (4.0-10.5)
[2020-04-14 21:58] LABS: INTERNATIONAL RATION (INR) 1.08; PROTHROMBIN TIME 14.2 SEC (11.4-15.4)
[2020-04-14 22:08] LABS: ABSOLUTE MONOCYTES # (MANUAL) 0.5 10^3/uL (0.1-1.4); BAND NEUTROPHILS % (MANUAL) 4 % (3-5); BASOPHILS % (MANUAL) 0 % (0-2); EOSINOPHILS % (MANUAL) 0 % (0-6); LYMPHOCYTES % (MANUAL) 8 % (13-45); MONOCYTES % (MANUAL) 2 % (3-13); SEGMENTED NEUTROPHILS % (MAN) 86 % (42-78); TOTAL CELLS COUNTED 100
[2020-04-14 22:09] LABS: ANISOCYTOSIS SLIGHT; OVALOCYTES 1+; PLATELET COMMENT ADEQUATE; POIKILOCYTOSIS SLIGHT; TEAR DROP CELLS SLIGHT; TOXIC GRANULATION SLIGHT; TOXIC VACUOLATION PRESENT
[2020-04-14 22:11] LABS: ALBUMIN 3.7 g/dL (3.5-5.0); ALKALINE PHOSPHATASE 105 U/L (38-126); ANION GAP 7 (5-19); ASPARTATE AMINO TRANSFERASE 45 U/L (14-36); BILIRUBIN,DIRECT 0.4 mg/dL (0.0-0.4); BILIRUBIN,TOTAL 1.3 mg/dL (0.2-1.3); BLOOD UREA NITROGEN 11 mg/dL (7-20); CALCIUM 8.9 mg/dL (8.4-10.2); CARBON DIOXIDE 31 mmol/L (22-30); CHLORIDE 103 mmol/L (98-107); GLUCOSE 113 mg/dL (75-110); POTASSIUM 3.7 mmol/L (3.6-5.0); TOTAL PROTEIN 7.6 g/dL (6.3-8.2)
--- NOTE | 2020-04-14 22:12 | RADIOLOGY REPORT (SQ) ---
EXAM DESCRIPTION: XR CHEST 1 VIEW COMPLETED DATE/TME: 04/14/2020 21:20 CLINICAL HISTORY: 30 years, Female, SOB COMPARISON: None. TECHNIQUE: Upright portable chest x-ray FINDINGS: Technically limited study possibly due to body habitus. The cardiomediastinal silhouette is not enlarged. Question but not definite left lower lobe retrocardiac infiltrate. IMPRESSION: Technically limited study. Question left lower lobe infiltrate versus artifact.
[2020-04-14] MEDS: RINGERS SOLUTION,LACTATED 1,000 ML IV PRN (22:36)
[2020-04-14 22:50] LABS: APPEARANCE,URINE CLEAR; BILIRUBIN,URINE NEGATIVE (NEGATIVE); COLOR,URINE YELLOW; GLUCOSE, URINE NEGATIVE (NEGATIVE); KETONES,URINE NEGATIVE (NEGATIVE); PROTEIN,URINE 100 mg/dL (NEGATIVE); URINE SPECIFIC GRAVITY 1.011
[2020-04-14] MEDS ORDERED: ACETAMINOPHEN 325 MG TABLET PO ONE (23:04)
[2020-04-14] MEDS ORDERED: LEVOFLOXACIN 750 MG/D5W RTU 750 MG/150 ML RTUPB IV ONE (23:10)
[2020-04-14] MEDS ORDERED: RINGERS SOLUTION,LACTATED 1,000 ML IV PRN (23:10)
--- NOTE | 2020-04-14 23:12 | ER Document Report ---
ED General - General Chief Complaint: Fever Stated Complaint: ALTERED MENTAL STATUS Time Seen by Provider: 04/14/20 21:33 TRAVEL OUTSIDE OF THE [place] IN LAST 30 DAYS: No - HPI Notes: Patient is a 30-year-old female who presents to the ER for evaluation of fever and altered mental status. The patient states her fever started yesterday. She has not taken anything for it. She has had a cough. She denies any pain. She denies any nausea, vomiting, diarrhea. She has had no runny nose or sore throat. She denies any ear pain. She denies any recent injuries. - Related Data Allergies/Adverse Reactions: cephalexin [From [email or web address]] Allergy (Verified 10/22/19 11:55) Home Medications: None Past Medical History - General Information source: Patient - Social History Smoking Status: Smoker,Current Status Unk Frequency of alcohol use: Heavy - Patient states every other day alcohol Family History: Reviewed & Not Pertinent Patient has homicidal ideation: No - Immunizations Immunizations up to date: Yes Hx Diphtheria, Pertussis, Tetanus Vaccination: Yes Review of Systems - Review of Systems Constitutional: See HPI EENT: No symptoms reported Cardiovascular: No symptoms reported Respiratory: See HPI Gastrointestinal: No symptoms reported Genitourinary: No symptoms reported Musculoskeletal: No symptoms reported Skin: No symptoms reported Neurological/Psychological: No symptoms reported Physical Exam - Vital signs Vitals: Temp Pulse Resp BP Pulse Ox 102.4 F H 145 H 20 147/93 H 91 L 04/14/20 21:06 04/14/20 21:06 04/14/20 21:06 04/14/20 21:06 04/14/20 21:06 - Notes Notes: This is an obese 30-year-old female who appears her stated age, in no acute distress. When I walked into the room she is lying nude in the bed, uncovered. She has pulled her IV from her arm and has not yet realized it. There is blood coming from her right antecubital area, there is IV fluid all over the floor. Vital signs reviewed, please refer to chart. Head is normocephalic, atraumatic. Pupils equal round, reactive to light. Neck is supple without meningismus or nuchal rigidity. Heart is regular rate and rhythm. Lungs reveal diminished breath sounds in the bases bilaterally. Abdomen is soft, nontender, normoactive bowel sounds throughout. Extremities without cyanosis, clubbing. Posterior calves are nontender. Peripheral pulses are equal. Skin is hot and dry. Patient is awake but drowsy, intermittently rolls over to try and go to sleep, intermittently cooperative with examiner. She believes it is January 03, but is oriented to year. Otherwise oriented to person and place. She moves all 4 extremities spontaneously. No gross facial asymmetry. Course - Re-evaluation Re-evalutation: 04/14/20 23:08 Patient presents to the emergency department for evaluation. She was febrile on arrival. She had a septic work-up initiated. She was placed on a glove machine operator. IV fluids were ordered. Unfortunately, the patient did remove her IV before receiving most of her fluids. I will reorder these. Patient's chest x- ray shows a likely infiltrate in the base. Given her cough, this is likely etiology. She has no nuchal rigidity. Her fever is treated with 975 mg of Tylenol. We will treat with Rocephin a Zithromax. Will order a COVID test. She is currently stable, will evaluate for response to treatment. 04/14/20 23:36 Patient remained stable. Her heart rate is still in the 140s, but I suspect she has not gotten much in the way of fluids. I have ordered 4 L, which is appropriate for 30 cc/kg dose and 130 kg patient. She is being treated for her pneumonia. I spoke with Dr. Frias, he will admit the patient for the further care. She is a PUI, will be admitted to [facility] as a result. 04/14/20 23:38 - Vital Signs Vital signs: Temp Pulse Resp BP Pulse Ox 100.7 F H 145 H 20 147/93 H 95 04/14/20 21:28 04/14/20 21:06 04/14/20 21:06 04/14/20 21:06 04/14/20 21:39 - Laboratory Result Diagrams: 04/14/20 21:27 04/14/20 21:27 Laboratory results interpreted by me: 04/14/20 04/14/20 04/14/20 21:27 21:27 21:27 WBC 24.8 H MCV 78 L MCH 25.3 L RDW 15.2 H Seg Neuts % (Manual) 86 H Lymphocytes % (Manual) 8 L Monocytes % (Manual) 2 L Abs Neuts (Manual) 22.3 H VBG pH 7.43 H Carbon Dioxide 31 H Glucose 113 H AST 45 H Urine Protein Urine Urobilinogen 04/14/20 22:33 WBC MCV MCH RDW Seg Neuts % (Manual) Lymphocytes % (Manual) Monocytes % (Manual) Abs Neuts (Manual) VBG pH Carbon Dioxide Glucose AST Urine Protein 100 H Urine Urobilinogen 4.0 H - Diagnostic Test Radiology reviewed: Image reviewed, Reports reviewed Radiology results interpreted by me: 04/14/20 23:09 Chest X-Ray 04/14/20 21:20 IMPRESSION: Technically limited study. Question left lower lobe infiltrate versus artifact. - EKG Interpretation by Me Additional EKG results interpreted by me: 04/14/20 23:37 Sinus tachycardia with a rate of 135 bpm. Normal axis and intervals. Nonspecific ST changes, but no acute elevations concerning for infarction. No change from prior study. Discharge - Discharge Clinical Impression: Left lower lobe pneumonia, Sepsis, Person under investigation for COVID-19 Condition: Stable Disposition: ADMITTED INPATIENT Admitting Provider: [facility] (Hospitalist) Unit Admitted: [facility]
[2020-04-15] MEDS: RINGERS SOLUTION,LACTATED 1,000 ML IV PRN (00:08)
[2020-04-15] MEDS ORDERED: ASPIRIN 325 MG TABLET, ENT COATED PO ONE (00:29)
[2020-04-15] MEDS ORDERED: HYDRALAZINE HCL INJ/PF 20 MG/1 ML SDV IV PRN (00:55)
[2020-04-15] MEDS ORDERED: AZITHROMYCIN 500 MG in DEXTROSE 5%-WATER 250 ML IV ONE (01:00)
[2020-04-15] MEDS ORDERED: ATORVASTATIN CALCIUM 40 MG TABLET PO ONE (01:00)
[2020-04-15 01:19] LABS: HEMATOCRIT 36.8 % (36.0-47.0); HEMOGLOBIN 12.2 g/dL (12.0-15.5); MEAN CORPUSCULAR HEMOGLOBIN 25.5 pg (27.0-33.4); MEAN CORPUSCULAR HGB CONC 33.2 g/dL (32.0-36.0); MEAN CORPUSCULAR VOLUME 77 fl (80-97); PLATELET COUNT 341 10^3/uL (150-450); RED BLOOD COUNT 4.79 10^6/uL (3.72-5.28); RED CELL DISTRIBUTION WIDTH 14.6 % (11.5-14.0); WHITE BLOOD COUNT 23.5 10^3/uL (4.0-10.5)
[2020-04-15 01:27] LABS: PROTHROMBIN TIME 14.4 SEC (11.4-15.4)
[2020-04-15 01:28] LABS: PARTIAL THROMBOPLASTIN TIME 32.8 SEC (23.5-35.8)
[2020-04-15 01:37] LABS: ABSOLUTE LYMPHOCYTES# (MANUAL) 2.1 10^3/uL (0.5-4.7); ABSOLUTE MONOCYTES # (MANUAL) 1.2 10^3/uL (0.1-1.4); BASOPHILS % (MANUAL) 0 % (0-2); EOSINOPHILS % (MANUAL) 0 % (0-6); LYMPHOCYTES % (MANUAL) 9 % (13-45); MONOCYTES % (MANUAL) 5 % (3-13); SEGMENTED NEUTROPHILS % (MAN) 86 % (42-78); TOTAL CELLS COUNTED 100
[2020-04-15 01:38] LABS: OVALOCYTES SLIGHT; PLATELET COMMENT ADEQUATE; POIKILOCYTOSIS SLIGHT
[2020-04-15 01:50] LABS: C-REACTIVE PROTEIN 381.5 mg/L (<10.0)
--- NOTE | 2020-04-15 01:57 | RADIOLOGY REPORT (SQ) ---
EXAM DESCRIPTION: CT HEAD WITHOUT IV CONTRAST COMPLETED DATE/TME: 04/15/2020 00:00 CLINICAL HISTORY: ams COMPARISON: 12/11/2018 TECHNIQUE: Axial CT of the head obtained from the skull apex to the skull base without contrast. FINDINGS: No acute intracranial hemorrhage identified. No mass, mass effect, shift of the midline, abnormal extra-axial fluid collection or CT evidence of acute ischemic change identified. The ventricular system is unremarkable. No acute abnormalities of the supratentorial white matter, basal ganglia, cerebellum, or brainstem. The visualized paranasal sinuses and the mastoids are relatively well aerated. No skull fracture identified. Visualized orbits and globes are unremarkable. IMPRESSION: 1. No acute intracranial abnormality identified. This exam was performed according to our departmental dose-optimization program, which includes automated exposure control, adjustment of the mA and/or kV according to patient size and/or use of iterative reconstruction technique.
[2020-04-15] MEDS ORDERED: ENOXAPARIN SODIUM INJ 150 MG/1 ML DISP.SYRIN SUBCUT ONE (02:00)
[2020-04-15 02:03] LABS: FERRITIN 96.3 ng/mL (6.2-137.0)
--- NOTE | 2020-04-15 02:20 | PDOC H&P ---
History of Present Illness Admission Date/PCP: 04/14/20 23:45 History of Present Illness: ALDAIR JEROME is a 30 year old female with no significant past medical history brought into ED by EMS for altered mental status, fever, p.o. intolerance, and cough. In ED she was noted to be hypertensive, febrile, altered with significant leukocytosis and hospitalist was consulted for admission. On my encounter patient is in bed, appears quite restless and fidgety, alert and oriented x3 however thinks Dali Worthington is the president, knows that she is in the hospital but it when asked why she states that her friend sent her to the hospital, patient does not provide much history but when asked if she does any recreational drugs she states she did cocaine today and she also drinks and smok es occasionally. Patient also complaining of generalized headache, denies any focal neurological symptoms, patient is cooperative with physical examination however has very short attention span and needs re-direction. Social History Smoking Status: Smoker,Current Status Unk Family History Family History: Reviewed & Not Pertinent Parental Family History Reviewed: Yes Children Family History Reviewed: Yes Sibling(s) Family History Reviewed.: Yes Medication/Allergy Home Medications: Acyclovir [Zovirax 200 mg Capsule] 200 mg PO Q4H #25 capsule 05/23/15 Azithromycin 250 mg PO DAILY #4 tablet 10/23/17 Fluconazole [Diflucan 100 Mg Tablet] 100 mg PO DAILY 1 Days #1 tablet 10/31/17 Fluticasone Propionate [Flonase Nasal Garibaldi 50 Mcg/Garibaldi 16 gm] 1 spray NASL Q12 #1 inhaler 10/31/17 Nystatin 1 each PO TID 14 Days #1 powder.ea. 10/31/17 Hydrocodone/Acetaminophen [Lawley 5-325 mg Tablet] 1 tab PO Q4 PRN #12 tablet 02/07/18 Cephalexin Monohydrate [Keflex 500 mg Capsule] 500 mg PO Q6H 10 Days capsule 02/17/18 Sulfamethoxazole/Trimethoprim [Septra-Ds 800-160 mg Tablet] 1 tab PO BID #20 tablet 02/17/18 Polymyxin B Sulfate/Tmp [Polytrim Oph Soln 10 ml] 1 drop RT_EYE ASDIR #1 bottle 07/11/18 Naproxen 500 mg PO BID PRN #20 tablet 12/11/18 Cephalexin Monohydrate [Keflex 500 mg Capsule] 500 mg PO BID #14 capsule 08/05/19 Dicyclomine HCl [Bentyl 20 mg Tablet] 20 mg PO QID PRN #10 tablet 08/05/19 Ondansetron [Zofran Odt 4 mg Tablet] 1 - 2 tab PO Q4H PRN #15 tab.rapdis 08/05/19 Clindamycin HCl [Cleocin 150 mg Capsule] 450 mg PO TID #63 capsule 01/07/20 Allergies/Adverse Reactions: cephalexin [From Keflex] Allergy (Verified 10/22/19 11:55) Review of Systems ROS unobtainable: Due to mental status Physical Exam Vital Signs: Temp Pulse Resp BP Pulse Ox 100.1 F 145 H 20 147/93 H 95 04/14/20 23:56 04/14/20 21:06 04/14/20 21:06 04/14/20 21:06 04/14/20 21:39 Intake & Output 04/13/20 04/14/20 04/15/20 06:59 06:59 06:59 Intake Total 1000 Balance 1000 Weight 130.181 kg General appearance: PRESENT: no acute distress, obese Head exam: PRESENT: atraumatic, normocephalic Respiratory exam: PRESENT: clear to auscultation aure. ABSENT: rales, rhonchi, wheezes Cardiovascular exam: PRESENT: RRR. ABSENT: diastolic murmur, rubs, systolic murmur Pulses: PRESENT: normal dorsalis pedis pul GI/Abdominal exam: PRESENT: normal bowel sounds, soft. ABSENT: distended, guarding, mass, organolmegaly, rebound, tenderness Neurological exam: PRESENT: alert, oriented to person, oriented to place, oriented to time, CN II-XII grossly intact, other - Somnolent but arousable. ABSENT: motor sensory deficit Skin exam: PRESENT: dry, intact, warm. ABSENT: cyanosis, rash Results Laboratory Results: 04/15/20 00:55 04/14/20 21:27 04/14/20 04/14/20 04/14/20 21:27 21:27 21:27 WBC 24.8 H RBC 5.14 Hgb 13.0 Hct 40.3 MCV 78 L MCH 25.3 L MCHC 32.3 RDW 15.2 H Plt Count 392 Seg Neutrophils % Not Reportable VBG pH 7.43 H VBG pCO2 45.4 VBG HCO3 29.3 VBG Base Excess 4.2 Sodium 140.9 Potassium 3.7 Chloride 103 Carbon Dioxide 31 H Anion Gap 7 BUN 11 Creatinine 1.05 Est GFR ( Amer) > 60 Glucose 113 H Lactic Acid Calcium 8.9 Ferritin Total Bilirubin 1.3 AST 45 H Alkaline Phosphatase 105 C-Reactive Protein Total Protein 7.6 Albumin 3.7 Urine Color Urine Appearance Urine pH Ur Specific Blackwell Urine Protein Urine Glucose (UA) Urine Ketones Urine Blood Urine RBC (Auto) 04/14/20 04/14/20 04/14/20 21:27 21:27 22:33 WBC RBC Hgb Hct MCV MCH MCHC RDW Plt Count Seg Neutrophils % VBG pH VBG pCO2 VBG HCO3 VBG Base Excess Sodium Potassium Chloride Carbon Dioxide Anion Gap BUN Creatinine Est GFR ( Amer) Glucose Lactic Acid 1.8 Calcium Ferritin 96.30 Total Bilirubin AST Alkaline Phosphatase C-Reactive Protein 381.5 H Total Protein Albumin Urine Color YELLOW Urine Appearance CLEAR Urine pH 8.0 Ur Specific Blackwell 1.011 Urine Protein 100 H Urine Glucose (UA) NEGATIVE Urine Ketones NEGATIVE Urine Blood NEGATIVE Urine RBC (Auto) 0 04/15/20 04/15/20 00:55 00:55 WBC 23.5 H RBC 4.79 Hgb 12.2 Hct 36.8 MCV 77 L MCH 25.5 L MCHC 33.2 RDW 14.6 H Plt Count 341 Seg Neutrophils % Not Reportable VBG pH VBG pCO2 VBG HCO3 VBG Base Excess Sodium Potassium Chloride Carbon Dioxide Anion Gap BUN Creatinine Est GFR ( Amer) Glucose Lactic Acid 1.6 Calcium Ferritin Total Bilirubin AST Alkaline Phosphatase C-Reactive Protein Total Protein Albumin Urine Color Urine Appearance Urine pH Ur Specific Blackwell Urine Protein Urine Glucose (UA) Urine Ketones Urine Blood Urine RBC (Auto) 04/14/20 21:27 Troponin I 0.113 Impressions: Chest X-Ray 04/14/20 21:20 IMPRESSION: Technically limited study. Question left lower lobe infiltrate versus artifact. Head CT 04/15/20 00:00 IMPRESSION: 1. No acute intracranial abnormality identified. This exam was performed according to our departmental dose-optimization program, which includes automated exposure control, adjustment of the mA and/or kV according to patient size and/or use of iterative reconstruction technique. Assessment and Plan - Diagnosis (1) Acute metabolic encephalopathy Is this a current diagnosis for this admission?: Yes Plan: Multifactorial. Likely due to underlying infectious process complicated by multi drug abuse. CT head negative. SPO2 WNL. VBG WNL. No meningeal signs. Urine tox positive for marijuana. Admit to IMCU, monitor electrolytes and volume status, monitor vitals, supportive measures. If no improvement consider lumbar puncture. (2) Systemic inflammatory response syndrome Is this a current diagnosis for this admission?: Yes Plan: Likely due to underlying factious process. No sign of sepsis. Presented with fever, leukocytosis, positive chest x-ray, and elevated inflammatory markers. Empiric broad-spectrum IV antibiotics. Urine and blood culture. (3) NSTEMI (non-ST elevated myocardial infarction) Is this a current diagnosis for this admission?: Yes Plan: Denies any history of CAD, denies any chest pain. Endorses cocaine abuse, last use prior to admission, however urine drug toxicology is negative for cocaine or opiates, not sure if this is an error, will repeat urine tox. Admit to IMCU, antiplatelets, anticoagulants, statins, JAZZY. Avoid beta-blockers if possible as patient endorses history of cocaine abuse. We will repeat urine toxicology. I have contacted Dr. Ernandez boat operator and went over this case with him, he agrees with this plan and agreed to see patient today. (4) Cocaine abuse Is this a current diagnosis for this admission?: Yes Plan: Patient endorses history of weekly cocaine abuse. Last use prior to admission. Urine drug toxicology is negative for cocaine or opioids positive for THC. I have contacted chemistry regarding negative urine tox, as per chemistry they have detected cocaine in her urine however is not within the range to be positive by their analyzer. Meanwhile will continue supportive measures, avoid beta-blockers if possible, benzodiazepines if needed. (5) ETOH abuse Is this a current diagnosis for this admission?: Yes Plan: Notable for withdrawal, DT precautions. (6) Left lower lobe pneumonia Is this a current diagnosis for this admission?: Yes Plan: Likely community-acquired due to gram positives including strep pneumo, COVID-19 is a possibility. Patient does not provide much history due to altered mental status but patient has significant leukocytosis with elevated inflammatory markers. We will start on empiric IV antibiotics, IV steroids, contact precaution, COVID- 19 serology. (7) Person under investigation for COVID-19 Is this a current diagnosis for this admission?: Yes Plan: COVID-19 serology negative. - Time Time Spent with patient: 35 or more minutes Medications reviewed and adjusted accordingly: Yes Anticipated Discharge Disposition: Home with Home Health Anticipated Discharge Timeframe: within 72 hours
[2020-04-15] MEDS ORDERED: VANCOMYCIN HCL 0 MG in DEXTROSE 5%-WATER 250 ML IV NR (02:45)
[2020-04-15] MEDS ORDERED: VANCOMYCIN HCL INJ 1000 MG VIAL IV PRN (02:52)
[2020-04-15 03:00] LABS: URINE AMPHETAMINES SCREEN NEGATIVE; URINE BARBITURATES SCREEN NEGATIVE; URINE BENZODIAZEPINES SCREEN NEGATIVE; URINE COCAINE SCREEN NEGATIVE; URINE METHADONE SCREEN NEGATIVE; URINE PHENCYCLIDINE SCREEN NEGATIVE
[2020-04-15] MEDS ORDERED: VANCOMYCIN HCL 2,000 MG in DEXTROSE 5%-WATER 500 ML IV ONE (03:00)
[2020-04-15 03:30] LABS: URINE MARIJUANA (THC) SCREEN UNCONFIRMED POSITIVE
[2020-04-15] MEDS ORDERED: AZITHROMYCIN INJ 500 MG VIAL IV ONE (03:51)
[2020-04-15] MEDS ORDERED: LORAZEPAM INJ 2 MG/1 ML VIAL IV PRN (04:59)
[2020-04-15] MEDS ORDERED: FOLIC ACID 1 MG TABLET PO ONE (05:15)
[2020-04-15] MEDS ORDERED: DEXTROSE 5%-NORMAL SALINE 1,000 ML IV PRN (05:20)
[2020-04-15] MEDS ORDERED: DEXAMETHASONE SOD PHOSPHATE INJ 4 MG/1 ML VIAL IV SCH (06:00)
[2020-04-15] MEDS ORDERED: THIAMINE HCL 100 MG TABLET PO ONE (06:00)
[2020-04-15 06:10] LABS: URINE AMPHETAMINES SCREEN NEGATIVE; URINE BARBITURATES SCREEN NEGATIVE; URINE BENZODIAZEPINES SCREEN NEGATIVE; URINE COCAINE SCREEN NEGATIVE; URINE METHADONE SCREEN NEGATIVE; URINE PHENCYCLIDINE SCREEN NEGATIVE
[2020-04-15 06:16] LABS: URINE MARIJUANA (THC) SCREEN UNCONFIRMED POSITIVE
--- NOTE | 2020-04-15 06:29 | EKG REPORT ---
SEVERITY:- BORDERLINE ECG - SINUS TACHYCARDIA PROBABLE LEFT ATRIAL ABNORMALITY BORDERLINE T ABNORMALITIES, INFERIOR LEADS : Confirmed by: Chung Meier MD 15-Apr-2020 06:28:52
[2020-04-15] MEDS ORDERED: ASCORBIC ACID 500 MG TABLET PO SCH (10:00)
[2020-04-15] MEDS ORDERED: ZINC SULFATE 220 MG CAPSULE PO SCH (10:00)
--- NOTE | 2020-04-15 11:19 | PDOC CONSULTATION ---
Consultation Consult Date: 04/15/20 Attending physician:: BIBIANA BOURNE Provider Consulted: ALMA ALVA Consult reason:: Detectable troponin History of Present Illness Admission Date/PCP: 04/14/20 23:45 History of Present Illness: ALDAIR JEROME is a 30 year old female with no known medical history, smoker, marijuana and cocaine use who is consulted to our service for evaluation of a detectable troponin. The patient presented to the emergency room yesterday with altered mental status and fever in the emergency room it was thought that she had an early septic picture and was ordered IV fluids however she pulled out her IV before getting any significant amount. Today she denies chest pain, shortness of breath, PND, orthopnea, lower extremity edema, palpitations, syncope and presyncope. She has remained tachycardic although less than on presentation. She states that the last time she used cocaine was 1 day ago. She denies family history of premature coronary artery disease. Her urine drug screen was positive for marijuana. Her telemetry shows sinus tachycardia without complex ventricular dysrhythmias. Physical exam on 04/15/2020: GENERAL: Obese and drowsy. Oriented x3. Not in acute distress. Well groomed and well developed. HEENT: Normocephalic, atraumatic. Pupils equal. Sclerae anicteric. Oropharynx moist. NECK: No JVD. No carotid bruits. LUNGS: Clear to auscultation bilaterally. Normal respiratory effort without the use of accessory muscles or intercostal retractions. CARDIOVASCULAR: Mildly tachycardic. Regular rate and rhythm, normal S1 and S2 without murmurs, rubs, or gallops. PMI not displaced. EXTREMITIES: No edema, no cyanosis, no clubbing. +2 pulses femoral and pedal pulses bilaterally. SKIN: No lesions or rashes. MUSCULOSKELETAL: No chest tenderness to palpation. NEUROLOGIC: Nonfocal. No gross sensory or motor deficits bilateral upper or lower extremities. Past Medical History Psychiatric Medical History: Denies: Depression Social History Smoking Status: Smoker,Current Status Unk Number of Years Smokin Frequency of Alcohol Use: Heavy Hx Recreational Drug Use: Yes Drugs: Cocaine, Marijuana Hx Prescription Drug Abuse: No Family History Family History: Reviewed & Not Pertinent Parental Family History Reviewed: Yes Children Family History Reviewed: Yes Sibling(s) Family History Reviewed.: Yes Medication/Allergy Home Medications: No Home Medications 04/15/20 Allergies/Adverse Reactions: cephalexin [From Keflex] Allergy (Verified 04/15/20 08:02) Physical Exam Vital Signs: Temp Pulse Resp BP Pulse Ox 99.8 F 96 18 132/96 H 96 04/15/20 09:06 04/15/20 09:06 04/15/20 09:06 04/15/20 09:06 04/15/20 09:06 Intake & Output 04/14/20 04/15/20 04/16/20 06:59 06:59 06:59 Intake Total 2900 Balance 2900 Weight 130.181 kg Results Laboratory Results: 04/15/20 00:55 04/14/20 21:27 04/14/20 04/14/20 04/14/20 21:27 21:27 21:27 WBC 24.8 H RBC 5.14 Hgb 13.0 Hct 40.3 MCV 78 L MCH 25.3 L MCHC 32.3 RDW 15.2 H Plt Count 392 Seg Neutrophils % Not Reportable VBG pH 7.43 H VBG pCO2 45.4 VBG HCO3 29.3 VBG Base Excess 4.2 Sodium 140.9 Potassium 3.7 Chloride 103 Carbon Dioxide 31 H Anion Gap 7 BUN 11 Creatinine 1.05 Est GFR ( Amer) > 60 Glucose 113 H Lactic Acid Calcium 8.9 Ferritin Total Bilirubin 1.3 AST 45 H Alkaline Phosphatase 105 C-Reactive Protein Total Protein 7.6 Albumin 3.7 Urine Color Urine Appearance Urine pH Ur Specific [place] Urine Protein Urine Glucose (UA) Urine Ketones Urine Blood Urine RBC (Auto) 04/14/20 04/14/20 04/14/20 21:27 21:27 22:33 WBC RBC Hgb Hct MCV MCH MCHC RDW Plt Count Seg Neutrophils % VBG pH VBG pCO2 VBG HCO3 VBG Base Excess Sodium Potassium Chloride Carbon Dioxide Anion Gap BUN Creatinine Est GFR ( Amer) Glucose Lactic Acid 1.8 Calcium Ferritin 96.30 Total Bilirubin AST Alkaline Phosphatase C-Reactive Protein 381.5 H Total Protein Albumin Urine Color YELLOW Urine Appearance CLEAR Urine pH 8.0 Ur Specific [place] 1.011 Urine Protein 100 H Urine Glucose (UA) NEGATIVE Urine Ketones NEGATIVE Urine Blood NEGATIVE Urine RBC (Auto) 0 04/15/20 04/15/20 04/15/20 00:55 00:55 05:38 WBC 23.5 H RBC 4.79 Hgb 12.2 Hct 36.8 MCV 77 L MCH 25.5 L MCHC 33.2 RDW 14.6 H Plt Count 341 Seg Neutrophils % Not Reportable VBG pH VBG pCO2 VBG HCO3 VBG Base Excess Sodium Potassium Chloride Carbon Dioxide Anion Gap BUN Creatinine Est GFR ( Amer) Glucose Lactic Acid 1.6 1.5 Calcium Ferritin Total Bilirubin AST Alkaline Phosphatase C-Reactive Protein Total Protein Albumin Urine Color Urine Appearance Urine pH Ur Specific [place] Urine Protein Urine Glucose (UA) Urine Ketones Urine Blood Urine RBC (Auto) 04/14/20 04/15/20 21:27 03:13 Troponin I 0.113 0.095 Impressions: Chest X-Ray 04/14/20 21:20 IMPRESSION: Technically limited study. Question left lower lobe infiltrate versus artifact. Head CT 04/15/20 00:00 IMPRESSION: 1. No acute intracranial abnormality identified. This exam was performed according to our departmental dose-optimization program, which includes automated exposure control, adjustment of the mA and/or kV according to patient size and/or use of iterative reconstruction technique. 04/15/20 00:55 04/14/20 21:27 MCV 77 fl (80-97) L 04/15/20 00:55 MCH 25.5 pg (27.0-33.4) L 04/15/20 00:55 MCHC 33.2 g/dL (32.0-36.0) 04/15/20 00:55 RDW 14.6 % (11.5-14.0) H 04/15/20 00:55 Seg Neutrophils % Not Reportable 04/15/20 00:55 VBG pH 7.43 (7.30-7.42) H 04/14/20 21:27 VBG pCO2 45.4 mmHg (35-63) 04/14/20 21:27 VBG HCO3 29.3 mmol/L (20-32) 04/14/20 21:27 VBG Base Excess 4.2 mmol/L 04/14/20 21: Chloride 103 mmol/L (98-107) 04/14/20 21: Carbon Dioxide 31 mmol/L (22-30) H 04/14/20 21:27 Anion Gap 7 (5-19) 04/14/20 21:27 Est GFR ( Amer) > 60 (>60) 04/14/20 21:27 Glucose 113 mg/dL (75-110) H 04/14/20 21:27 Lactic Acid 1.5 mmol/L (0.7-2.1) 04/15/20 05:38 Calcium 8.9 mg/dL (8.4-10.2) 04/14/20 21:27 Ferritin 96.30 ng/mL (6.2-137.0) 04/14/20 21: Total Bilirubin 1.3 mg/dL (0.2-1.3) 04/14/20 21:27 AST 45 U/L (14-36) H 04/14/20 21:27 Alkaline Phosphatase 105 U/L (38-126) 04/14/20 21: C-Reactive Protein 381.5 mg/L (<10.0) H 04/14/20 21:27 Total Protein 7.6 g/dL (6.3-8.2) 04/14/20 21: Albumin 3.7 g/dL (3.5-5.0) 04/14/20 21:27 Urine Color YELLOW 04/14/20 22:33 Urine Appearance CLEAR 04/14/20 22:33 Urine pH 8.0 (5.0-9.0) 04/14/20 22:33 Ur Specific [place] 1.011 04/14/20 22:33 Urine Protein 100 mg/dL (NEGATIVE) H 04/14/20 22:33 Urine Glucose (UA) NEGATIVE mg/dL (NEGATIVE) 04/14/20 22:33 Urine Ketones NEGATIVE mg/dL (NEGATIVE) 04/14/20 22:33 Urine Blood NEGATIVE (NEGATIVE) 04/14/20 22:33 Urine RBC (Auto) 0 /HPF 04/14/20 22:33 04/14/20 04/15/20 21:27 03:13 Troponin I 0.113 0.095 Current Medication List Generic Name Dose Route Start Last Admin Trade Name Freq PRN Reason Stop Dose Admin Aspirin 81 mg 04/15/20 10:00 Aspirin 81 Mg Chewable Tablet PO 05/15/20 09:59 DAILY [facility] Atorvastatin Calcium 40 mg 04/15/20 22:00 Lipitor 40 Mg Tablet PO 05/15/20 21:59 QHS [facility] Enoxaparin Sodium 130 mg 04/15/20 18:00 Lovenox Inj 150 Mg/1 Ml Disp.Syrin SUBCUT 05/15/20 17:59 Q12A [facility] Folic Acid 1 mg 04/16/20 10:00 Folvite 1 Mg Tablet PO 05/16/20 09:59 DAILY [facility] Hydralazine HCl 10 mg 04/15/20 00:55 Apresoline Inj/Pf 20 Mg/1 Ml Sdv IV 05/15/20 00:54 Q3HP PRN Give For Sbp > [180] Levofloxacin/Dextrose 500 mg in 100 mls @ 100 mls/hr 04/15/20 22:00 Levaquin Rtu 500mg/D5w 100 Ml Premix IV 04/22/20 21:59 QHS [facility] Dextrose/Sodium Chloride 1,000 mls @ 80 mls/hr 04/15/20 05:20 D5ns 1000 Ml Iv Soln IV 05/15/20 05:19 CONTINUOUS PRN THIS MED IS NOT "PRN" Vancomycin HCl 1,250 mg/ 250 mls @ 166.667 mls/hr 04/15/20 16:00 Dextrose IV 04/22/20 15:59 Q12A [facility] Lisinopril 2.5 mg 04/15/20 10:00 Prinivil 5 Mg Tablet PO 05/15/20 09:59 DAILY [facility] Lorazepam 1 mg 04/15/20 04:59 Ativan Inj 2 Mg/1 Ml Vial IV 04/22/20 04:58 Q2HP PRN ANXIETY/AGITATION Thiamine HCl 100 mg 04/16/20 10:00 Thiamine 100 Mg Tablet PO 05/16/20 09:59 DAILY [facility] Discontinued Medications Generic Name Dose Route Start Last Admin Trade Name Freq PRN Reason Stop Dose Admin Acetaminophen 975 mg 04/14/20 23:04 04/15/20 00:08 Tylenol 325 Mg Tablet PO 04/14/20 23:05 975 mg NOW ONE Administration Ascorbic Acid 500 mg 04/15/20 10:00 Vitamin C 500 Mg Tablet PO 05/15/20 09:59 BID [facility] Aspirin 325 mg 04/15/20 00:29 04/15/20 01:19 Ecotrin 325 Mg Ec Tablet PO 04/15/20 00:30 325 mg NOW ONE Administration Atorvastatin Calcium 40 mg 04/15/20 01:00 04/15/20 01:19 Lipitor 40 Mg Tablet PO 04/15/20 01:01 40 mg NOW ONE Administration Azithromycin Confirm 04/15/20 03:51 04/15/20 04:22 Zithromax Inj 500 Mg Vial Administered 04/15/20 03:52 Not Given Dose 500 mg IV .STK-MED ONE Dexamethasone Sodium Phosphate 4 mg 04/15/20 06:00 Decadron Inj 4 Mg/Ml Vial IV 05/15/20 05:59 Q8 [facility] Enoxaparin Sodium 130 mg 04/15/20 02:00 04/15/20 03:08 Lovenox Inj 150 Mg/1 Ml Disp.Syrin SUBCUT 04/15/20 02:01 130 mg NOW ONE Administration Folic Acid 1 mg 04/15/20 05:15 04/15/20 05:19 Folvite 1 Mg Tablet PO 04/15/20 05:16 1 mg NOW ONE Administration Lactated Ringer's 1,000 mls @ 0 mls/hr 04/14/20 21:50 04/15/20 04:16 Lactated Ringers 1000 Ml Iv Soln IV Infused X 2 BAGS PRN Infusion THIS MED IS NOT "PRN" Wide Open Lactated Ringer's 1,000 mls @ 0 mls/hr 04/14/20 23:10 Lactated Ringers 1000 Ml Iv Soln IV X 2 BAGS PRN THIS MED IS NOT "PRN" Wide Open Levofloxacin/Dextrose 750 mg in 150 mls @ 100 mls/hr 04/14/20 23:10 04/15/20 04:17 Levaquin Rtu 750 Mg/D5w 150 Ml Premix IV 04/15/20 00:39 Infused NOW ONE Infusion Azithromycin 500 mg/ Dextrose 250 mls @ 250 mls/hr 04/15/20 22:00 IV 04/22/20 21:59 QHS JUAN Azithromycin 500 mg/ Dextrose 250 mls @ 250 mls/hr 04/15/20 01:00 04/15/20 05:47 IV 04/15/20 01:59 Infused NOW ONE Infusion Vancomycin HCl 2,000 mg/ 500 mls @ 250 mls/hr 04/15/20 03:00 04/15/20 05:13 Dextrose IV 04/15/20 04:59 Infused NOW ONE Infusion Thiamine HCl 100 mg 04/15/20 06:00 04/15/20 05:20 Thiamine 100 Mg Tablet PO 04/15/20 06:01 100 mg NOW ONE Administration Vancomycin HCl 2,000 mg 04/15/20 02:52 Vancocin Inj 1000 Mg Vial IV 04/15/20 09:00 ASDIR PRN Zinc Sulfate 220 mg 04/15/20 10:00 Zinc-220 Capsule PO 05/15/20 09:59 DAILY [facility] Assessment & Plan - Diagnosis (1) Troponin I above reference range Plan: 30-year-old female with no cardiovascular history who uses marijuana and cocaine but the last dose about a day ago who came to the emergency room for evaluation of altered mental status and fevers. There was a questionable pneumonia on chest x-ray and she does have leukocytosis. Her troponin, although detectable, is nondiagnostic at this point. She has no ischemic symptoms and no real traditional risk factors for coronary artery disease. Her troponin is already trending down. We will obtain an echocardiogram for evaluation of structural heart disease however I do not believe the patient needs further re- stratification at this point. Fever and tachycardia can cause mildly elevated troponins by themselves particularly in someone who has leukocytosis and suspected infection. Cocaine use can also cause significant vasospasm with subsequent ischemia in the absence of coronary artery disease. Recommendations: -Echocardiogram to assess for structural heart disease. -Further recommendations pending results of echocardiogram. (2) Cocaine abuse Is this a current diagnosis for this admission?: Yes Plan: The patient was counseled regarding the cardiovascular adverse effects of cocaine.
[2020-04-15] MEDS: LISINOPRIL 5 MG TABLET PO SCH (11:28)
[2020-04-15] MEDS: ASPIRIN 81 MG TABLET, CHEWABLE PO SCH (11:28)
--- NOTE | 2020-04-15 12:35 | PDOC PROGRESS REPORT ---
Subjective Progress Note for:: 04/15/20 Subjective:: Patient barely participates in the encounter. This is frustrating as we are trying to ascertain the level of her disease. She basically did not provide answers to questions. Reason For Visit: LEFT LOWER LOBE PNEUMONIA,SEPSIS, Physical Exam Vital Signs: Temp Pulse Resp BP Pulse Ox 99.8 F 96 18 132/96 H 96 04/15/20 09:06 04/15/20 09:06 04/15/20 09:06 04/15/20 09:06 04/15/20 09:06 Intake & Output 04/14/20 04/15/20 04/16/20 06:59 06:59 06:59 Intake Total 2900 Balance 2900 Weight 130.181 kg General appearance: PRESENT: no acute distress, morbidly obese, well-developed. ABSENT: cooperative Head exam: PRESENT: atraumatic, normocephalic Ear exam: PRESENT: normal external ear exam. ABSENT: bleeding, drainage Respiratory exam: PRESENT: rales - Possible faint rales left base, symmetrical, unlabored. ABSENT: tachypnea, wheezes Cardiovascular exam: PRESENT: +S1, +S2, systolic murmur, tachycardia. ABSENT: bradycardia, diastolic murmur, irregular rhythm GI/Abdominal exam: PRESENT: normal bowel sounds, soft. ABSENT: tenderness Rectal exam: PRESENT: deferred Gentrourinary exam: ABSENT: indwelling catheter Extremities exam: ABSENT: pedal edema Musculoskeletal exam: PRESENT: normal inspection. ABSENT: deformity, dislocation Neurological exam: PRESENT: alert, awake, other - Patient barely answered to questions and of the multiple questions asked. Psychiatric exam: PRESENT: flat affect. ABSENT: agitated, anxious Focused psych exam: ABSENT: delusional, paranoid, restlessness Skin exam: PRESENT: dry, warm. ABSENT: rash Results Laboratory Results: 04/15/20 00:55 04/14/20 21:27 04/14/20 04/14/20 04/14/20 21:27 21:27 21:27 WBC 24.8 H RBC 5.14 Hgb 13.0 Hct 40.3 MCV 78 L MCH 25.3 L MCHC 32.3 RDW 15.2 H Plt Count 392 Seg Neutrophils % Not Reportable VBG pH 7.43 H VBG pCO2 45.4 VBG HCO3 29.3 VBG Base Excess 4.2 Sodium 140.9 Potassium 3.7 Chloride 103 Carbon Dioxide 31 H Anion Gap 7 BUN 11 Creatinine 1.05 Est GFR ( Amer) > 60 Glucose 113 H Lactic Acid Calcium 8.9 Ferritin Total Bilirubin 1.3 AST 45 H Alkaline Phosphatase 105 C-Reactive Protein Total Protein 7.6 Albumin 3.7 Urine Color Urine Appearance Urine pH Ur Specific [place] Urine Protein Urine Glucose (UA) Urine Ketones Urine Blood Urine RBC (Auto) 04/14/20 04/14/20 04/14/20 21:27 21:27 22:33 WBC RBC Hgb Hct MCV MCH MCHC RDW Plt Count Seg Neutrophils % VBG pH VBG pCO2 VBG HCO3 VBG Base Excess Sodium Potassium Chloride Carbon Dioxide Anion Gap BUN Creatinine Est GFR ( Amer) Glucose Lactic Acid 1.8 Calcium Ferritin 96.30 Total Bilirubin AST Alkaline Phosphatase C-Reactive Protein 381.5 H Total Protein Albumin Urine Color YELLOW Urine Appearance CLEAR Urine pH 8.0 Ur Specific [place] 1.011 Urine Protein 100 H Urine Glucose (UA) NEGATIVE Urine Ketones NEGATIVE Urine Blood NEGATIVE Urine RBC (Auto) 0 04/15/20 04/15/20 04/15/20 00:55 00:55 05:38 WBC 23.5 H RBC 4.79 Hgb 12.2 Hct 36.8 MCV 77 L MCH 25.5 L MCHC 33.2 RDW 14.6 H Plt Count 341 Seg Neutrophils % Not Reportable VBG pH VBG pCO2 VBG HCO3 VBG Base Excess Sodium Potassium Chloride Carbon Dioxide Anion Gap BUN Creatinine Est GFR ( Amer) Glucose Lactic Acid 1.6 1.5 Calcium Ferritin Total Bilirubin AST Alkaline Phosphatase C-Reactive Protein Total Protein Albumin Urine Color Urine Appearance Urine pH Ur Specific [place] Urine Protein Urine Glucose (UA) Urine Ketones Urine Blood Urine RBC (Auto) 04/14/20 04/15/20 21:27 03:13 Troponin I 0.113 0.095 Impressions: Chest X-Ray 04/14/20 21:20 IMPRESSION: Technically limited study. Question left lower lobe infiltrate versus artifact. Head CT 04/15/20 00:00 IMPRESSION: 1. No acute intracranial abnormality identified. This exam was performed according to our departmental dose-optimization program, which includes automated exposure control, adjustment of the mA and/or kV according to patient size and/or use of iterative reconstruction technique. Assessment and Plan - Diagnosis (1) Acute metabolic encephalopathy Is this a current diagnosis for this admission?: Yes Plan: Patient is slightly improved. She is somewhat more talkative today. Nursing reports some unusual behaviors especially concerning bowel movements, incontinence and playing in stool. White blood cell count is still elevated. Blood cultures are no growth. Urine culture was not able to be obtained. Urinalysis is not suggestive of infection. Continue to monitor. Difficult to know what her baseline is especially with polysubstance abuse. (2) Left lower lobe pneumonia Qualifiers: Pneumonia type: due to unspecified organism Qualified Code(s): J18.9 - Pneumonia, unspecified organism Is this a current diagnosis for this admission?: Yes Plan: The patient is on vancomycin and levofloxacin. White count is slightly higher today. Continue to monitor. The patient does not exhibit any productive cough or difficulty breathing. (3) NSTEMI (non-ST elevated myocardial infarction) Is this a current diagnosis for this admission?: Yes Plan: Likely cardiac strain especially in light of cocaine abuse. Transaminases are decreasing. Echocardiogram showed no loss of function. Normal ejection fraction and no evidence of diastolic dysfunction. (4) Tachycardia Is this a current diagnosis for this admission?: Yes Plan: Possibly related to cocaine use. Monitor on telemetry. (5) Systemic inflammatory response syndrome Is this a current diagnosis for this admission?: Yes Plan: Appears to be better with fluids and antibiotics. Continue to monitor closely. Etiology is likely an underlying infectious process versus her substance abuse. (6) Cocaine abuse Is this a current diagnosis for this admission?: Yes Plan: Continue to encourage cessation. Patient might benefit from inpatient rehab. (7) ETOH abuse Is this a current diagnosis for this admission?: Yes Plan: Continue to encourage cessation. Patient might benefit from rehab program. (8) Person under investigation for COVID-19 Is this a current diagnosis for this admission?: Yes Plan: Symptoms and elevated white count not readily explained. She did have a fever at the time of admission. COVID serology is pending. - Time Time Spent with patient: 15-24 minutes Medications reviewed and adjusted accordingly: Yes Anticipated Discharge Disposition: Home, Self Care Anticipated Discharge Timeframe: Unknown
[2020-04-15] MEDS: METOPROLOL TARTRATE 25 MG TABLET PO SCH ×2 (13:12→22:05)
[2020-04-15] MEDS: VANCOMYCIN HCL 1,250 MG in DEXTROSE 5%-WATER 250 ML IV SCH (17:24)
[2020-04-15] MEDS: ENOXAPARIN SODIUM INJ 150 MG/1 ML DISP.SYRIN SUBCUT SCH (17:28)
[2020-04-15] MEDS ORDERED: AZITHROMYCIN 500 MG in DEXTROSE 5%-WATER 250 ML IV SCH (22:00)
[2020-04-15] MEDS: LEVOFLOXACIN 500 MG/D5W RTU 500 MG/100 ML RTUPB IV SCH (22:06)
[2020-04-15] MEDS: ATORVASTATIN CALCIUM 40 MG TABLET PO SCH (22:06)
[2020-04-16 05:09] LABS: HEMATOCRIT 39.7 % (36.0-47.0); HEMOGLOBIN 12.9 g/dL (12.0-15.5); MEAN CORPUSCULAR HEMOGLOBIN 25.3 pg (27.0-33.4); MEAN CORPUSCULAR HGB CONC 32.4 g/dL (32.0-36.0); MEAN CORPUSCULAR VOLUME 78 fl (80-97); PLATELET COUNT 348 10^3/uL (150-450); RED BLOOD COUNT 5.08 10^6/uL (3.72-5.28); RED CELL DISTRIBUTION WIDTH 14.4 % (11.5-14.0); WHITE BLOOD COUNT 25.1 10^3/uL (4.0-10.5)
[2020-04-16] MEDS ORDERED: VANCOMYCIN HCL INJ 500 MG VIAL ONE (05:44)
[2020-04-16] MEDS: ENOXAPARIN SODIUM INJ 150 MG/1 ML DISP.SYRIN SUBCUT SCH ×2 (05:50→18:19)
[2020-04-16] MEDS: VANCOMYCIN HCL 1,250 MG in DEXTROSE 5%-WATER 250 ML IV SCH ×2 (05:50→20:17)
--- NOTE | 2020-04-16 09:07 | PDOC PROGRESS REPORT ---
Subjective Progress Note for:: 04/16/20 Subjective:: ALDAIR JEROME is a 30 year old female with no known medical history, smoker, marijuana and cocaine use who is consulted to our service for evaluation of a detectable troponin. The patient presented to the emergency room yesterday with altered mental status and fever in the emergency room it was thought that she had an early septic picture and was ordered IV fluids however she pulled out her IV before getting any significant amount. Today she denies chest pain, s hortness of breath, PND, orthopnea, lower extremity edema, palpitations, syncope and presyncope. She has remained tachycardic although less than on presentation. She states that the last time she used cocaine was 1 day ago. She denies family history of premature coronary artery disease. Her urine drug screen was positive for marijuana. Her telemetry shows sinus tachycardia without complex ventricular dysrhythmias. 04/16/2020: The patient had an uneventful. She was transferred to the COVID floor. She continues to have episodes of fevers and continues to be mildly tachycardic. She has no cardiovascular complaints this morning and is asking when she is going to go home. Physical exam on 04/16/2020: GENERAL: Obese and awake. Oriented x3. Not in acute distress. Well groomed and well developed. HEENT: Normocephalic, atraumatic. Pupils equal. Sclerae anicteric. Oropharynx moist. NECK: No JVD. No carotid bruits. LUNGS: Clear to auscultation bilaterally. Normal respiratory effort without the use of accessory muscles or intercostal retractions. CARDIOVASCULAR: Mildly tachycardic. Regular rate and rhythm, normal S1 and S2 without murmurs, rubs, or gallops. PMI not displaced. EXTREMITIES: No edema, no cyanosis, no clubbing. +2 pulses femoral and pedal pulses bilaterally. SKIN: No lesions or rashes. MUSCULOSKELETAL: No chest tenderness to palpation. NEUROLOGIC: Nonfocal. No gross sensory or motor deficits bilateral upper or lower extremities. Reason For Visit: ACUTE METABOLIC ENCEPHALOPATHY, SYSTEMIC INFLAMMAT Physical Exam Vital Signs: Temp Pulse Resp BP Pulse Ox 99.0 F 110 H 18 110/71 95 04/16/20 03:27 04/16/20 03:27 04/16/20 03:27 04/16/20 03:27 04/16/20 03:27 Intake & Output 04/14/20 04/15/20 04/16/20 06:59 06:59 06:59 Intake Total 2900 1387 Balance 2900 1387 Weight 130.181 kg 127.5 kg Results Laboratory Results: 04/16/20 04:23 04/14/20 21:27 04/15/20 04/16/20 04/16/20 05:38 04:23 04:23 WBC 25.1 H RBC 5.08 Hgb 12.9 Hct 39.7 MCV 78 L MCH 25.3 L MCHC 32.4 RDW 14.4 H Plt Count 348 Lactic Acid 1.5 TSH 2.06 04/14/20 04/15/20 04/15/20 21:27 03:13 12:20 Troponin I 0.113 0.095 0.075 Impressions: Chest X-Ray 04/14/20 21:20 IMPRESSION: Technically limited study. Question left lower lobe infiltrate versus artifact. Head CT 04/15/20 00:00 IMPRESSION: 1. No acute intracranial abnormality identified. This exam was performed according to our departmental dose-optimization program, which includes automated exposure control, adjustment of the mA and/or kV according to patient size and/or use of iterative reconstruction technique. 04/16/20 04:23 04/14/20 21:27 MCV 78 fl (80-97) L 04/16/20 04:23 MCH 25.3 pg (27.0-33.4) L 04/16/20 04:23 MCHC 32.4 g/dL (32.0-36.0) 04/16/20 04:23 RDW 14.4 % (11.5-14.0) H 04/16/20 04:23 Seg Neutrophils % Not Reportable 04/15/20 00:55 VBG pH 7.43 (7.30-7.42) H 04/14/20 21:27 VBG pCO2 45.4 mmHg (35-63) 04/14/20 21:27 VBG HCO3 29.3 mmol/L (20-32) 04/14/20 21:27 VBG Base Excess 4.2 mmol/L 04/14/20 21:27 Chloride 103 mmol/L (98-107) 04/14/20 21:27 Carbon Dioxide 31 mmol/L (22-30) H 04/14/20 21:27 Anion Gap 7 (5-19) 04/14/20 21:27 Est GFR ( Amer) > 60 (>60) 04/14/20 21:27 Glucose 113 mg/dL (75-110) H 04/14/20 21:27 Lactic Acid 1.5 mmol/L (0.7-2.1) 04/15/20 05:38 Calcium 8.9 mg/dL (8.4-10.2) 04/14/20 21:27 Ferritin 96.30 ng/mL (6.2-137.0) 04/14/20 21: Total Bilirubin 1.3 mg/dL (0.2-1.3) 04/14/20 21: AST 45 U/L (14-36) H 04/14/20 21:27 Alkaline Phosphatase 105 U/L (38-126) 04/14/20 21:27 C-Reactive Protein 381.5 mg/L (<10.0) H 04/14/20 21:27 Total Protein 7.6 g/dL (6.3-8.2) 04/14/20 21:27 Albumin 3.7 g/dL (3.5-5.0) 04/14/20 21: TSH 2.06 uIU/mL (0.47-4.68) 04/16/20 04:23 Urine Color YELLOW 04/14/20 22:33 Urine Appearance CLEAR 04/14/20 22:33 Urine pH 8.0 (5.0-9.0) 04/14/20 22:33 Ur Specific Accident 1.011 04/14/20 22:33 Urine Protein 100 mg/dL (NEGATIVE) H 04/14/20 22:33 Urine Glucose (UA) NEGATIVE mg/dL (NEGATIVE) 04/14/20 22:33 Urine Ketones NEGATIVE mg/dL (NEGATIVE) 04/14/20 22:33 Urine Blood NEGATIVE (NEGATIVE) 04/14/20 22:33 Urine RBC (Auto) 0 /HPF 04/14/20 22:33 04/14/20 04/15/20 04/15/20 21:27 03:13 12:20 Troponin I 0.113 0.095 0.075 Current Medication List Generic Name Dose Route Start Last Admin Trade Name Freq PRN Reason Stop Dose Admin Aspirin 81 mg 04/15/20 10:00 04/15/20 11:28 Aspirin 81 Mg Chewable Tablet PO 05/15/20 09:59 81 mg DAILY JUAN Administration Atorvastatin Calcium 40 mg 04/15/20 22:00 04/15/20 22:06 Lipitor 40 Mg Tablet PO 05/15/20 21:59 40 mg QHS JUAN Administration Enoxaparin Sodium 130 mg 04/15/20 18:00 04/16/20 05:50 Lovenox Inj 150 Mg/1 Ml Disp.Syrin SUBCUT 05/15/20 17:59 130 mg Q12A JUAN Administration Folic Acid 1 mg 04/16/20 10:00 Folvite 1 Mg Tablet PO 05/16/20 09:59 DAILY JUAN Hydralazine HCl 10 mg 04/15/20 00:55 Apresoline Inj/Pf 20 Mg/1 Ml Sdv IV 05/15/20 00:54 Q3HP PRN Give For Sbp > [180] Levofloxacin/Dextrose 500 mg in 100 mls @ 100 mls/hr 04/15/20 22:00 04/16/20 00:00 Levaquin Rtu 500mg/D5w 100 Ml Premix IV 04/22/20 21:59 Infused QHS JUAN Infusion Dextrose/Sodium Chloride 1,000 mls @ 80 mls/hr 04/15/20 05:20 04/15/20 22:21 D5ns 1000 Ml Iv Soln IV 05/15/20 05:19 80 mls/hr CONTINUOUS PRN Administration THIS MED IS NOT "PRN" Vancomycin HCl 1,250 mg/ 250 mls @ 166.667 mls/hr 04/15/20 16:00 04/16/20 05:50 Dextrose IV 04/22/20 15:59 166.6 mls/hr Q12A JUAN 166.6 mls/hr Administration Lisinopril 2.5 mg 04/15/20 10:00 04/15/20 11:28 Prinivil 5 Mg Tablet PO 05/15/20 09:59 2.5 mg DAILY JUAN Administration Lorazepam 1 mg 04/15/20 04:59 Ativan Inj 2 Mg/1 Ml Vial IV 04/22/20 04:58 Q2HP PRN ANXIETY/AGITATION Metoprolol Tartrate 12.5 mg 04/15/20 13:00 09/01/20 22:05 Lopressor 25 Mg Tablet PO 05/15/20 12:59 12.5 mg Q12 JUAN Administration Thiamine HCl 100 mg 04/16/20 10:00 Thiamine 100 Mg Tablet PO 05/16/20 09:59 DAILY JUAN Discontinued Medications Generic Name Dose Route Start Last Admin Trade Name Shahzad PRN Reason Stop Dose Admin Acetaminophen 975 mg 04/14/20 23:04 04/15/20 00:08 Tylenol 325 Mg Tablet PO 04/14/20 23:05 975 mg NOW ONE Administration Ascorbic Acid 500 mg 04/15/20 10:00 Vitamin C 500 Mg Tablet PO 05/15/20 09:59 BID JUAN Aspirin 325 mg 04/15/20 00:29 04/15/20 01:19 Ecotrin 325 Mg Ec Tablet PO 04/15/20 00:30 325 mg NOW ONE Administration Atorvastatin Calcium 40 mg 04/15/20 01:00 04/15/20 01:19 Lipitor 40 Mg Tablet PO 04/15/20 01:01 40 mg NOW ONE Administration Azithromycin Confirm 04/15/20 03:51 04/15/20 04:22 Zithromax Inj 500 Mg Vial Administered 04/15/20 03:52 Not Given Dose 500 mg IV .STK-MED ONE Dexamethasone Sodium Phosphate 4 mg 04/15/20 06:00 Decadron Inj 4 Mg/Ml Vial IV 05/15/20 05:59 Q8 [facility] Enoxaparin Sodium 130 mg 04/15/20 02:00 04/15/20 03:08 Lovenox Inj 150 Mg/1 Ml Disp.Syrin SUBCUT 04/15/20 02:01 130 mg NOW ONE Administration Folic Acid 1 mg 04/15/20 05:15 04/15/20 05:19 Folvite 1 Mg Tablet PO 04/15/20 05:16 1 mg NOW ONE Administration Lactated Ringer's 1,000 mls @ 0 mls/hr 04/14/20 21:50 04/15/20 04:16 Lactated Ringers 1000 Ml Iv Soln IV Infused X 2 BAGS PRN Infusion THIS MED IS NOT "PRN" Wide Open Lactated Ringer's 1,000 mls @ 0 mls/hr 04/14/20 23:10 Lactated Ringers 1000 Ml Iv Soln IV X 2 BAGS PRN THIS MED IS NOT "PRN" Wide Open Levofloxacin/Dextrose 750 mg in 150 mls @ 100 mls/hr 04/14/20 23:10 04/15/20 04:17 Levaquin Rtu 750 Mg/D5w 150 Ml Premix IV 04/15/20 00:39 Infused NOW ONE Infusion Azithromycin 500 mg/ Dextrose 250 mls @ 250 mls/hr 04/15/20 22:00 IV 04/22/20 21:59 QHS JUAN Azithromycin 500 mg/ Dextrose 250 mls @ 250 mls/hr 04/15/20 01:00 04/15/20 05:47 IV 04/15/20 01:59 Infused NOW ONE Infusion Vancomycin HCl 2,000 mg/ 500 mls @ 250 mls/hr 04/15/20 03:00 04/15/20 05:13 Dextrose IV 04/15/20 04:59 Infused NOW ONE Infusion Thiamine HCl 100 mg 04/15/20 06:00 04/15/20 05:20 Thiamine 100 Mg Tablet PO 04/15/20 06:01 100 mg NOW ONE Administration Vancomycin HCl 2,000 mg 04/15/20 02:52 Vancocin Inj 1000 Mg Vial IV 04/15/20 09:00 ASDIR PRN Vancomycin HCl Confirm 04/16/20 05:44 04/16/20 05:49 Vancocin Inj 500 Mg Vial Administered 04/16/20 05:45 Not Given Dose 500 mg .ROUTE .STK-MED ONE Zinc Sulfate 220 mg 04/15/20 10:00 Zinc-220 Capsule PO 05/15/20 09:59 DAILY JUAN Assessment & Plan - Diagnosis (1) Troponin I above reference range Plan: The patient continues to be asymptomatic from the cardiovascular standpoint. Still having occasional episodes of low grade fevers. Recommendations: -Echocardiogram to assess for structural heart disease. -Cardiology does not have further recommendations therefore we will sign off the case for now. We will review the echocardiogram when available and will review her case if any abnormalities present. (2) Cocaine abuse Is this a current diagnosis for this admission?: Yes Plan: The patient was counseled regarding the cardiovascular adverse effects of cocaine.
[2020-04-16] MEDS: FOLIC ACID 1 MG TABLET PO SCH (10:10)
[2020-04-16] MEDS: METOPROLOL TARTRATE 25 MG TABLET PO SCH ×2 (10:10→23:07)
[2020-04-16] MEDS: ASPIRIN 81 MG TABLET, CHEWABLE PO SCH (10:10)
[2020-04-16] MEDS: LISINOPRIL 5 MG TABLET PO SCH (10:11)
[2020-04-16] MEDS: THIAMINE HCL 100 MG TABLET PO SCH (10:11)
--- NOTE | 2020-04-16 13:56 | XCELERA REPORT ---
[address] [address] Transthoracic Echocardiogram Report Name: ALDAIR JEROME Age: 30 yrs Gender: Female : 1990 Patient Status: Inpatient Patient Location: [facility]^A Study Date: 04/16/2020 10:37 AM Height: 69 in Weight: 287 lb BSA: 2.4 m2 Reason For Study: positive troponins Ordering Physician: BIBIANA BOURNE Performed By: Rebekah Bucio Interpretation Summary Difficult study due to pt. body habitus. The left ventricle is grossly normal size. Left ventricular systolic function is normal. The Ejection Fraction estimate is 55-60%. Doppler measurements suggest normal left ventricular diastolic function. Regional wall motion abnormalities cannot be excluded due to limited visualization. Trace TR. The aortic valve was not well visualized. Right ventricle not well visualized. IVS not well visualized. IVC not well visualized. No prior studies for comparison. MMode/2D Measurements & Calculations RVDd: 1.7 cm LVIDd: 4.4 cm FS: 28.9 % Ao root diam: 2.5 cm IVSd: 0.95 cm LVIDs: 3.1 cm EDV(Teich): 88.5 ml LVPWd: 0.92 cm ESV(Teich): 39.2 ml Ao root area: 4.9 cm2 LA dimension: 2.8 cm EF(Teich): 55.8 % Doppler Measurements & Calculations MV E max aaron: MV P1/2t max aaron: Ao V2 max: LV V1 max P.9 cm/sec 66.4 cm/sec 105.6 cm/sec 2.3 mmHg MV A max aaron: MV P1/2t: 43.9 msec Ao max P.5 mmHg LV V1 max: 47.0 cm/sec MVA(P1/2t): 5.0 cm2 76.0 cm/sec MV E/A: 1.3 MV dec slope: 443.0 cm/sec2 MV dec time: 0.19 sec PA V2 max: TR max aaron: MV P1/2t-pr_phl: 60.9 cm/sec 224.0 cm/sec 43.9 msec PA max PG: TR max P.1 mmHg 1.5 mmHg Left Ventricle The left ventricle is grossly normal size. Left ventricular systolic function is normal. The Ejection Fraction estimate is 55-60%. Doppler measurements suggest normal left ventricular diastolic function. Regional wall motion abnormalities cannot be excluded due to limited visualization. Right Ventricle Right ventricle not well visualized. Atria The right atrium is normal. The left atrial size is normal. IVS not well visualized. Mitral Valve The mitral valve is normal in structure and function. There is no mitral regurgitation noted. Aortic Valve The aortic valve is not well visualized secondary to technical limitations. No aortic regurgitation is present. Tricuspid Valve The tricuspid is normal in structure and function. There is a trace amount of tricuspid regurgitation. Pulmonic Valve The pulmonic valve is normal in structure and function. There is no pulmonic valvular regurgitation. Great Vessels IVC not well visualized. Effusions There is no pericardial effusion. There is no pleural effusion. : BIBIANA BOURNE Antonio
[2020-04-16] MEDS: ALPRAZOLAM 0.5 MG TABLET PO PRN (17:37)
[2020-04-16] MEDS: LEVOFLOXACIN 500 MG/D5W RTU 500 MG/100 ML RTUPB IV SCH (21:03)
--- NOTE | 2020-04-16 22:30 | PDOC PROGRESS REPORT ---
Subjective Progress Note for:: 04/16/20 Subjective:: Slightly more talkative today. States she is feeling slightly better. Unfortunately she has pulled out 4 different IVs. She has been very resistant to treatment. Reason For Visit: ACUTE METABOLIC ENCEPHALOPATHY, SYSTEMIC INFLAMMAT Physical Exam Vital Signs: Temp Pulse Resp BP Pulse Ox 98.0 F 92 17 133/92 H 94 04/16/20 10:00 04/16/20 14:00 04/16/20 07:32 04/16/20 07:32 04/16/20 07:32 Intake & Output 04/15/20 04/16/20 04/17/20 06:59 06:59 06:59 Intake Total 2900 1507 1250 Balance 2900 1507 1250 Weight 130.181 kg 127.5 kg General appearance: PRESENT: mild distress, morbidly obese, well-developed. AB SENT: cooperative - Still not extremely cooperative Head exam: PRESENT: atraumatic, normocephalic Mouth exam: PRESENT: moist, tongue midline Respiratory exam: PRESENT: rales - Possible faint rales left base, symmetrical, unlabored. ABSENT: rhonchi, tachypnea, wheezes Cardiovascular exam: PRESENT: RRR, +S1, +S2. ABSENT: bradycardia, diastolic murmur, irregular rhythm, systolic murmur, tachycardia GI/Abdominal exam: PRESENT: normal bowel sounds, soft. ABSENT: distended, tenderness Rectal exam: PRESENT: deferred Gentrourinary exam: ABSENT: indwelling catheter Extremities exam: ABSENT: pedal edema Musculoskeletal exam: PRESENT: ambulatory, normal inspection. ABSENT: deformity, dislocation Neurological exam: PRESENT: alert, awake, oriented to person, other - Unable to fully assess due to patient's resistance to engaging verbal discussion. Psychiatric exam: PRESENT: unusual affect - Affect suggests a very withdrawn or detached state. ABSENT: agitated, anxious Focused psych exam: ABSENT: delusional, paranoid, restlessness Results Laboratory Results: 04/16/20 04:23 04/14/20 21:27 04/16/20 04/16/20 04:23 04:23 WBC 25.1 H RBC 5.08 Hgb 12.9 Hct 39.7 MCV 78 L MCH 25.3 L MCHC 32.4 RDW 14.4 H Plt Count 348 TSH 2.06 04/14/20 04/15/20 04/15/20 21:27 03:13 12:20 Troponin I 0.113 0.095 0.075 Impressions: Chest X-Ray 04/14/20 21:20 IMPRESSION: Technically limited study. Question left lower lobe infiltrate versus artifact. Head CT 04/15/20 00:00 IMPRESSION: 1. No acute intracranial abnormality identified. This exam was performed according to our departmental dose-optimization program, which includes automated exposure control, adjustment of the mA and/or kV according to patient size and/or use of iterative reconstruction technique. Assessment and Plan - Diagnosis (1) Acute metabolic encephalopathy Is this a current diagnosis for this admission?: Yes Plan: Appears to be improving. Etiology still unclear. Infection likely due to elevated white blood cell count. (2) Left lower lobe pneumonia Qualifiers: Pneumonia type: due to unspecified organism Qualified Code(s): J18.9 - Pneumonia, unspecified organism Is this a current diagnosis for this admission?: Yes Plan: The patient's white blood cell count is increased. This is despite antibiotic therapy. COVID serology is pending but quite possible. (3) Tachycardia Is this a current diagnosis for this admission?: Yes Plan: Still with intermittent tachycardia. I will start low-dose metoprolol. (4) Systemic inflammatory response syndrome Is this a current diagnosis for this admission?: Yes Plan: Patient is afebrile and vitals are stable. White blood cell count is still elevated. (5) Cocaine abuse Is this a current diagnosis for this admission?: Yes Plan: Encourage cessation. Cardiology reviewed the harmful effects on the heart as well. (6) ETOH abuse Is this a current diagnosis for this admission?: Yes Plan: Continue to encourage cessation. Patient might benefit from rehab program. (7) Person under investigation for COVID-19 Is this a current diagnosis for this admission?: Yes Plan: Still pending but clinically the patient certainly could have COVID. (8) NSTEMI (non-ST elevated myocardial infarction) Is this a current diagnosis for this admission?: Yes Plan: No longer trending troponins - Plan Summary Summary: April 16, 2020 The patient has been somewhat difficult to deal with today. She pulled out for IVs. She does not seem interested in participating in her care. I did change to oral antibiotics. Again discussed the possibility of a lumbar puncture but based on her behavior I do not think this will be possible. I will consider empiric dosing with acyclovir however without her IV it would certainly be less than optimal. - Time Time Spent with patient: 15-24 minutes Medications reviewed and adjusted accordingly: Yes Anticipated Discharge Disposition: Home, Self Care Anticipated Discharge Timeframe: within 72 hours
[2020-04-16] MEDS ORDERED: AMOXICILLIN TR/POT CLAVULANATE 875-125 MG TAB ONE (22:38)
[2020-04-16] MEDS: AMOXICILLIN TR/POT CLAVULANATE 875-125 MG TAB PO SCH (23:07)
[2020-04-16] MEDS: ATORVASTATIN CALCIUM 40 MG TABLET PO SCH (23:16)
[2020-04-17] MEDS: ENOXAPARIN SODIUM INJ 150 MG/1 ML DISP.SYRIN SUBCUT SCH (05:47)
[2020-04-17 06:28] LABS: HEMATOCRIT 42.9 % (36.0-47.0); HEMOGLOBIN 14.2 g/dL (12.0-15.5); MEAN CORPUSCULAR HEMOGLOBIN 25.7 pg (27.0-33.4); MEAN CORPUSCULAR VOLUME 78 fl (80-97); PLATELET COUNT 375 10^3/uL (150-450); RED BLOOD COUNT 5.51 10^6/uL (3.72-5.28); RED CELL DISTRIBUTION WIDTH 14.5 % (11.5-14.0); WHITE BLOOD COUNT 15.7 10^3/uL (4.0-10.5)
[2020-04-17 06:46] LABS: VANCOMYCIN,TROUGH < 5.0 ug/mL (5.0-20.0)
[2020-04-17 07:08] LABS: C-REACTIVE PROTEIN 205.1 mg/L (<10.0)
[2020-04-17 07:10] LABS: ABSOLUTE LYMPHOCYTES# (MANUAL) 1.9 10^3/uL (0.5-4.7); ABSOLUTE MONOCYTES # (MANUAL) 0.6 10^3/uL (0.1-1.4); BAND NEUTROPHILS % (MANUAL) 4 % (3-5); BASOPHILS % (MANUAL) 0 % (0-2); EOSINOPHILS % (MANUAL) 4 % (0-6); LYMPHOCYTES % (MANUAL) 12 % (13-45); MONOCYTES % (MANUAL) 4 % (3-13); SEGMENTED NEUTROPHILS % (MAN) 76 % (42-78); TOTAL CELLS COUNTED 100
[2020-04-17 07:11] LABS: ANISOCYTOSIS SLIGHT; HYPOCHROMASIA SLIGHT; PLATELET COMMENT ADEQUATE; TEAR DROP CELLS SLIGHT
[2020-04-17] MEDS ORDERED: AZITHROMYCIN 250 MG TABLET PO SCH (10:00)
[2020-04-17 10:04] VITALS: BP 119/90
--- NOTE | 2020-04-17 10:19 | RADIOLOGY REPORT (SQ) ---
EXAM DESCRIPTION: CHEST SINGLE VIEW IMAGES COMPLETED DATE/TIME: 04/17/2020 9:13 am REASON FOR STUDY: left lower lobe infiltrate COMPARISON: 04/14/2020 NUMBER OF VIEWS: One view. TECHNIQUE: Single frontal radiographic image of the chest acquired. LIMITATIONS: None. FINDINGS: LUNGS AND PLEURA: Left lower lobe airspace disease not significantly changed allowing for differences in technique. The right lung is clear. MEDIASTINUM AND HEART: Stable heart size and mediastinal structures. BONY STRUCTURES: No acute findings. HARDWARE: None. OTHER: No other significant finding. IMPRESSION: Left lower lobe pneumonia. TECHNICAL DOCUMENTATION: JOB ID: [id number] Reading location - [facility]workstation [email or web address]
[2020-04-17] MEDS: ASPIRIN 81 MG TABLET, CHEWABLE PO SCH (10:44)
[2020-04-17] MEDS: THIAMINE HCL 100 MG TABLET PO SCH (10:44)
[2020-04-17] MEDS: FOLIC ACID 1 MG TABLET PO SCH (10:44)
[2020-04-17] MEDS: LISINOPRIL 5 MG TABLET PO SCH (10:45)
[2020-04-17] MEDS: METOPROLOL TARTRATE 25 MG TABLET PO SCH (10:45)
[2020-04-17] MEDS: AMOXICILLIN TR/POT CLAVULANATE 875-125 MG TAB PO SCH (10:46)
[2020-04-17] MEDS: ALPRAZOLAM 0.5 MG TABLET PO PRN (15:18)
--- NOTE | 2020-04-17 16:27 | PDOC DISCHARGE SUMMARY ---
Impression - Admit/DC Date/PCP Admission Date/Primary Care Provider: 04/14/20 23:45 Discharge Date: 04/17/20 - Discharge Diagnosis (1) Acute metabolic encephalopathy Is this a current diagnosis for this admission?: Yes (2) Left lower lobe pneumonia Is this a current diagnosis for this admission?: Yes (3) Tachycardia Is this a current diagnosis for this admission?: Yes (4) Systemic inflammatory response syndrome Is this a current diagnosis for this admission?: Yes (5) Cocaine abuse Is this a current diagnosis for this admission?: Yes (6) ETOH abuse Is this a current diagnosis for this admission?: Yes (7) Person under investigation for COVID-19 Is this a current diagnosis for this admission?: Yes (8) NSTEMI (non-ST elevated myocardial infarction) Is this a current diagnosis for this admission?: Yes - Assessment Summary: April 16, 2020 The patient has been somewhat difficult to deal with today. She pulled out for IVs. She does not seem interested in participating in her care. I did change to oral antibiotics. Again discussed the possibility of a lumbar puncture but based on her behavior I do not think this will be possible. I will consider empiric dosing with acyclovir however without her IV it would certainly be less than optimal. - Additional Information Discharge Diet: Cardiac Discharge Activity: Activity As Tolerated Prescriptions: Amoxicillin/Potassium Clav [Augmentin 875-125 Tablet] 1 tab PO Q12 #14 tablet Atorvastatin Calcium [Lipitor 40 mg Tablet] 40 mg PO QHS #15 tablet Lisinopril [Prinivil 5 mg Tablet] 2.5 mg PO DAILY #15 tablet Metoprolol Succinate [Toprol Xl 25 mg Tab.sr] 25 mg PO DAILY #15 tab.sr.24h Home Medications: Amoxicillin/Potassium Clav [Augmentin 875-125 Tablet] 1 tab PO Q12 #14 tablet 04/17/20 Aspirin [Aspirin 81 mg Chewable Tablet] 81 mg PO DAILY tab.chew 04/17/20 Atorvastatin Calcium [Lipitor 40 mg Tablet] 40 mg PO QHS #15 tablet 04/17/20 Lisinopril [Prinivil 5 mg Tablet] 2.5 mg PO DAILY #15 tablet 04/17/20 Metoprolol Succinate [Toprol Xl 25 mg Tab.sr] 25 mg PO DAILY #15 tab.sr.24h 04/17/20 History of Present Illiness History of Present Illness: ALDAIR JEROME is a 30 year old female with no significant past medical history brought into ED by EMS for altered mental status, fever, p.o. intolerance, and cough. In ED she was noted to be hypertensive, febrile, altered with significant leukocytosis and hospitalist was consulted for admission. On my encounter patient is in bed, appears quite restless and fidgety, alert and oriented x3 however thinks Dali Worthington is the president, knows that she is in the hospital but it when asked why she states that her friend sent her to the hospital, patient does not provide much history but when asked if she does any recreational drugs she states she did cocaine today and she also drinks and smokes occasionally. Patient also complaining of generalized headache, denies any focal neurological symptoms, patient is cooperative with physical examination however has very short attention span and needs re-direction. Hospital Course Hospital Course: There were multiple behavioral issues by patient during this hospitalization. It is unclear why. She would urinate and defecate in the bed and in the bathroom with feces and urine all over. She pulled out for IVs yesterday and insisted that they just fell out. Today when I told her she was Coban negative and I was going to discharge her she was very verbal and animated which is completely opposite of what she was during her stay. Physical Exam Vital Signs: Temp Pulse Resp BP Pulse Ox 98.8 F 106 H 19 119/90 H 100 04/17/20 07:58 04/17/20 07:58 04/17/20 07:58 04/17/20 07:58 04/17/20 07:58 Intake & Output 04/16/20 04/17/20 04/18/20 06:59 06:59 06:59 Intake Total 1507 2176 Balance 1507 2176 Weight 127.5 kg 127.9 kg General appearance: PRESENT: no acute distress, morbidly obese Respiratory exam: PRESENT: clear to auscultation aure, symmetrical, unlabored. ABSENT: rales, rhonchi, tachypnea, wheezes Cardiovascular exam: PRESENT: RRR, +S1, +S2 GI/Abdominal exam: PRESENT: normal bowel sounds, soft. ABSENT: tenderness Results Laboratory Results: WBC 15.7 10^3/uL (4.0-10.5) H 04/17/20 05:14 RBC 5.51 10^6/uL (3.72-5.28) H 04/17/20 05:14 Hgb 14.2 g/dL (12.0-15.5) 04/17/20 05:14 Hct 42.9 % (36.0-47.0) 04/17/20 05:14 MCV 78 fl (80-97) L 04/17/20 05:14 MCH 25.7 pg (27.0-33.4) L 04/17/20 05:14 MCHC 33.0 g/dL (32.0-36.0) 04/17/20 05:14 RDW 14.5 % (11.5-14.0) H 04/17/20 05:14 Plt Count 375 10^3/uL (150-450) 04/17/20 05:14 Lymph % (Auto) Not Reportable 04/17/20 05:14 [place] % (Auto) Not Reportable 04/17/20 05:14 Eos % (Auto) Not Reportable 04/17/20 05:14 Baso % (Auto) Not Reportable 04/17/20 05:14 Absolute Neuts (auto) Not Reportable 04/17/20 05:14 Absolute Lymphs (auto) Not Reportable 04/17/20 05:14 Absolute Monos (auto) Not Reportable 04/17/20 05:14 Absolute Eos (auto) Not Reportable 04/17/20 05:14 Absolute Basos (auto) Not Reportable 04/17/20 05:14 Total Counted 100 04/17/20 05:14 Seg Neutrophils % Not Reportable 04/17/20 05:14 Seg Neuts % (Manual) 76 % (42-78) 04/17/20 05:14 Band Neutrophils % 4 % (3-5) 04/17/20 05:14 Lymphocytes % (Manual) 12 % (13-45) L 04/17/20 05:14 Monocytes % (Manual) 4 % (3-13) 04/17/20 05:14 Eosinophils % (Manual) 4 % (0-6) 04/17/20 05:14 Basophils % (Manual) 0 % (0-2) 04/17/20 05:14 Abs Neuts (Manual) 12.6 10^3/uL (1.7-8.2) H 04/17/20 05:14 Abs Lymphs (Manual) 1.9 10^3/uL (0.5-4.7) 04/17/20 05:14 Abs Monocytes (Manual) 0.6 10^3/uL (0.1-1.4) 04/17/20 05:14 Absolute Eos (Manual) 0.6 10^3/uL (0.0-0.6) 04/17/20 05:14 Abs Basophils (Manual) 0.0 10^3/uL (0.0-0.2) 04/17/20 05:14 Toxic Granulation SLIGHT 04/14/20 21:27 Toxic Vacuolation PRESENT 04/14/20 21:27 Platelet Comment ADEQUATE 04/17/20 05:14 Hypochromasia SLIGHT 04/17/20 05:14 Poikilocytosis SLIGHT 04/15/20 00:55 Anisocytosis SLIGHT 04/17/20 05:14 Microcytosis SLIGHT 04/17/20 05:14 Tear Drop Cells SLIGHT 04/17/20 05:14 Ovalocytes SLIGHT 04/15/20 00:55 Acanthocytes (Spur) SLIGHT 04/15/20 00:55 ESR 96 mm/hr (0-20) H 04/15/20 00:55 PT 14.4 SEC (11.4-15.4) 04/15/20 00:55 INR 1.10 04/15/20 00:55 APTT 36.3 SEC (23.5-35.8) H 04/15/20 05:38 D-Dimer 5.57 ug/mL (0.00-0.50) H 04/14/20 21:27 VBG pH 7.43 (7.30-7.42) H 04/14/20 21:27 VBG pCO2 45.4 mmHg (35-63) 04/14/20 21:27 VBG HCO3 29.3 mmol/L (20-32) 04/14/20 21:27 VBG Base Excess 4.2 mmol/L 04/14/20 21:27 Sodium 140.9 mmol/L (137-145) 04/14/20 21:27 Potassium 3.7 mmol/L (3.6-5.0) 04/14/20 21:27 Chloride 103 mmol/L (98-107) 08/31/20 21:27 Carbon Dioxide 31 mmol/L (22-30) H 04/14/20 21:27 Anion Gap 7 (5-19) 04/14/20 21:27 BUN 11 mg/dL (7-20) 04/14/20 21:27 Creatinine 1.03 mg/dL (0.52-1.25) 04/17/20 05:14 Est GFR ( Amer) > 60 (>60) 04/17/20 05:14 Est GFR (MDRD) Non-Af > 60 (>60) 04/17/20 05:14 Glucose 113 mg/dL (75-110) H 04/14/20 21:27 POC Glucose 93 mg/dL (70-110) 04/14/20 22:02 Lactic Acid 1.5 mmol/L (0.7-2.1) 04/15/20 05:38 Calcium 8.9 mg/dL (8.4-10.2) 04/14/20 21:27 Ferritin 96.30 ng/mL (6.2-137.0) 04/14/20 21:27 Total Bilirubin 1.3 mg/dL (0.2-1.3) 04/14/20 21:27 Direct Bilirubin 0.4 mg/dL (0.0-0.4) 04/14/20 21:27 Neonat Total Bilirubin Not Reportable 04/14/20 21:27 Neonat Direct Bilirubin Not Reportable 04/14/20 21:27 Neonat Indirect Bili Not Reportable 04/14/20 21:27 AST 45 U/L (14-36) H 04/14/20 21:27 ALT 28 U/L (<35) 04/14/20 21:27 Alkaline Phosphatase 105 U/L (38-126) 04/14/20 21:27 Troponin I 0.075 ng/mL 04/15/20 12:20 C-Reactive Protein 205.1 mg/L (<10.0) H 04/17/20 05:14 Total Protein 7.6 g/dL (6.3-8.2) 04/14/20 21:27 Albumin 3.7 g/dL (3.5-5.0) 04/14/20 21:27 Interleukin 6 169.6 pg/mL (0.0-12.2) H 04/14/20 21:27 TSH 2.06 uIU/mL (0.47-4.68) 04/16/20 04:23 Urine Color YELLOW 04/14/20 22:33 Urine Appearance CLEAR 04/14/20 22:33 Urine pH 8.0 (5.0-9.0) 04/14/20 22:33 Ur Specific [place] 1.011 04/14/20 22:33 Urine Protein 100 mg/dL (NEGATIVE) H 04/14/20 22:33 Urine Glucose (UA) NEGATIVE mg/dL (NEGATIVE) 04/14/20 22:33 Urine Ketones NEGATIVE mg/dL (NEGATIVE) 04/14/20 22:33 Urine Blood NEGATIVE (NEGATIVE) 04/14/20 22:33 Urine Nitrite (Reflex) NEGATIVE (NEGATIVE) 04/14/20 22:33 Urine Bilirubin NEGATIVE (NEGATIVE) 04/14/20 22:33 Urine Urobilinogen 4.0 mg/dL (<2.0) H 04/14/20 22:33 Leukocyte Esterase Rfl NEGATIVE (NEGATIVE) 04/14/20 22:33 Urine RBC (Auto) 0 /HPF 04/14/20 22:33 Urine WBC (Reflex) 2 /HPF 04/14/20 22:33 Squamous Epi Cells Auto 1 /HPF 04/14/20 22:33 Urine Ascorbic Acid NEGATIVE (NEGATIVE) 04/14/20 22:33 Time Trough Drawn 0514 04/17/20 05:14 Vancomycin Trough < 5.0 ug/mL (5.0-20.0) L 04/17/20 05:14 Urine Opiates Screen NEGATIVE 04/15/20 05:43 Urine Methadone Screen NEGATIVE 04/15/20 05:43 Ur Barbiturates Screen NEGATIVE 04/15/20 05:43 Ur Phencyclidine Scrn NEGATIVE 04/15/20 05:43 Ur Amphetamines Screen NEGATIVE 04/15/20 05:43 U Benzodiazepines Scrn NEGATIVE 04/15/20 05:43 Urine Cocaine Screen NEGATIVE 04/15/20 05:43 U Marijuana (THC) Screen UNCONFIRMED POSITIVE 04/15/20 05:43 Serum Alcohol < 10 mg/dL (NONE DETECTED) 04/14/20 21:27 COVID-19 Source NASOPHARYNGEAL 04/15/20 13:00 COVID-19 (JASKARAN) NOT DETECTED 04/15/20 13:00 SARS-CoV-2 (PCR) NEGATIVE (NEGATIVE) 04/15/20 03:13 04/14/20 04/15/20 04/15/20 21:27 03:13 12:20 Troponin I 0.113 0.095 0.075 Impressions: Chest X-Ray 04/14/20 21:20 IMPRESSION: Technically limited study. Question left lower lobe infiltrate versus artifact. Head CT 04/15/20 00:00 IMPRESSION: 1. No acute intracranial abnormality identified. This exam was performed according to our departmental dose-optimization program, which includes automated exposure control, adjustment of the mA and/or kV according to patient size and/or use of iterative reconstruction technique. Chest X-Ray 04/17/20 07:00 IMPRESSION: Left lower lobe pneumonia. Plan Health Concerns: History of cocaine abuse. Mild ST elevation secondary to heart strain. Concerns over compliance and continued cocaine use Plan of Treatment: Complete antibiotic therapy as an outpatient with Augmentin. Aspirin, lisinopril, metoprolol and atorvastatin for cardioprotection. Goals: Complete resolution of community-acquired pneumonia Time Spent: Greater than 30 Minutes Stroke Is this a Stroke Patient?: No Acute Heart Failure - Is this a Heart Failure Patient?: No
== END 2020-04-17 17:53 | disposition home or self-care (01) | DRG 193 ==
LOC: ER 21:00 → EH 23:45 → 3S 04-15 08:47 → 3N 04-15 21:05
PROVIDERS: ADMIT Internal Medicine; ATTEND Hospitalist
DX: J18.9 Pneumonia, unspecified organism (principal); G93.41 Metabolic encephalopathy; D72.829 Elevated white blood cell count, unspecified; F14.10 Cocaine abuse, uncomplicated; R79.89 Other specified abnormal findings of blood chemistry; E66.01 Morbid (severe) obesity due to excess calories; F10.10 Alcohol abuse, uncomplicated; Z20.828 Contact with and (suspected) exposure to other viral communicable diseases; R00.0 Tachycardia, unspecified; Z71.51 Drug abuse counseling and surveillance of drug abuser; Z71.41 Alcohol abuse counseling and surveillance of alcoholic
CPT/HCPCS: 36415; 70450; 71045; 80053; 80202; 80307; 81001; 82565; 82728; 82803; 82962; 83520; 83605; 84443; 84484; 85025; 85027; 85379; 85610; 85652; 85730; 86140; 87040; 87635; 93005; 93010; 93306; 96361; 96365; 96366; 96368; 99285; C9803; J0456; J1650; J1956; J3370; J3490; J7042; J7060; J7120

== ENCOUNTER 2020-04-27 14:01 | Emergency (ER) | payer SELFPAY ==
[2020-04-27 14:06] VITALS: BP 137/96
--- NOTE | 2020-04-27 14:17 | ER Document Report ---
HPI - HPI Patient complains to provider of: rash Time Seen by Provider: 04/27/20 14:06 Onset: Last week Onset/Duration: Worse Quality of pain: Burning Pain Level: 1 Context: Patient presents complaining pruritic rash to the groin area for the past week. Patient denies any fever or urinary symptoms. Associated Symptoms: Other - Skin rash Exacerbated by: Movement Relieved by: Denies Similar symptoms previously: No Recently seen / treated by doctor: No - ROS ROS below otherwise negative: Yes Systems Reviewed and Negative: Yes All other systems reviewed and negative - CONSTITUTIONAL Constitutional: DENIES: Fever, Chills - NEURO Neurology: DENIES: Weakness - REPRODUCTIVE Reproductive: DENIES: : - DERM Skin Color: Normal Skin Problems: Rash Past Medical History - General Information source: Patient - Social History Smoking Status: Current Every Day Smoker Frequency of alcohol use: Social Drug Abuse: Marijuana Occupation: results company Family History: Reviewed & Not Pertinent - Medical History Medical History: Negative Psychiatric Medical History: Denies: Hx Depression Surgical Hx: Negative - Immunizations Immunizations up to date: Yes Hx Diphtheria, Pertussis, Tetanus Vaccination: Yes Vertical Provider Document - CONSTITUTIONAL Exam Limitations: No Limitations General Appearance: WD/WN, No Apparent Distress - INFECTION CONTROL TRAVEL OUTSIDE OF THE [place] IN LAST 30 DAYS: No - HEENT HEENT: Atraumatic, Normocephalic - NECK Neck: Normal Inspection, Supple - RESPIRATORY Respiratory: Breath Sounds Normal, No Respiratory Distress - CARDIOVASCULAR Cardiovascular: Regular Rate, Regular Rhythm - BACK Back: Normal Inspection - MUSCULOSKELETAL/EXTREMETIES Musculoskeletal/Extremeties: MAEW - NEURO Level of Consciousness: Awake, Alert, Appropriate Motor/Sensory: No Motor Deficit - DERM Integumentary: Warm, Dry, Rash - Patient with mildly erythematous well demarcated rash to bilateral groin area with scaling edges Course - Re-evaluation Re-evalutation: 04/27/20 14:19 Patient with rash that look suspicious for tinea cruris, patient educated on ways to minimize development of this problem. - Vital Signs Vital signs: Temp Pulse Resp BP Pulse Ox 97.9 F 110 H 18 137/96 H 95 04/27/20 14:05 04/27/20 14:05 04/27/20 14:05 04/27/20 14:05 04/27/20 14:05 Discharge - Discharge Clinical Impression: Tinea cruris Condition: Stable Disposition: HOME, SELF-CARE Instructions: Skin Fungus ([facility]) Additional Instructions: Return immediately for any new or worsening symptoms Followup with your primary care provider, call tomorrow to make a followup appointment Keep area clean and dry Prescriptions: Miconazole Nitrate [Micro-Guard] 1 applic TP BID #85 gm Forms: Return to Work Referrals: [facility] DEPT,[facility] [NO LOCAL MD] - Follow up as needed
== END 2020-04-27 14:19 | disposition home or self-care (01) ==
LOC: ER 14:01
DX: B35.6 Tinea cruris (principal); R21 Rash and other nonspecific skin eruption; L29.9 Pruritus, unspecified; F17.200 Nicotine dependence, unspecified, uncomplicated
CPT/HCPCS: 99283

== ENCOUNTER 2020-05-20 09:37 | Emergency (ER) | payer SELFPAY ==
[2020-05-20] MEDS ORDERED: NALOXONE HCL INJ 2 MG/2 ML DISP.SYRIN IV ONE (10:47)
[2020-05-20] MEDS ORDERED: NALOXONE HCL INJ/PF 0.4 MG/1 ML SDV ONE (10:49)
[2020-05-20] MEDS ORDERED: NORMAL SALINE 1000 ML 1,000 ML IV ONE (10:54)
--- NOTE | 2020-05-20 10:54 | ER Document Report ---
ED Medical Screen (RME) - General Chief Complaint: Altered Mental Status Stated Complaint: HIP/LEG PAIN Time Seen by Provider: 05/20/20 10:39 TRAVEL OUTSIDE OF THE [place] IN LAST 30 DAYS: No - HPI Notes: 05/20/20 10:49 30-year-old female with a history of cocaine abuse presents to the emergency room for altered mental status is become progressively worse over the last 24 hours but started approximately 6 days ago. Patient is brought in by her mother who states that she stayed with her over the weekend, she got a call yesterday from the patient's job saying she is not acting right, mother states the last 24 hours she has become more nonresponsive, issues with memory, headache swollen ankles. When asked if there is any illicit drug use the patient said no but the mother shook her head yes, indicating that there has been illicit drug consumption. Mother states that patient is currently on her menstrual cycle. Mother denies any falls or traumas that she knows of, patient is a poor historian. I have greeted and performed a rapid initial assessment of this patient. A comprehensive ED assessment and evaluation of the patient, analysis of test results and completion of the medical decision making process will be conducted by additional ED providers. PHYSICAL EXAMINATION: GENERAL: Well-appearing, well-nourished and drowsy HEAD: Atraumatic, normocephalic. EYES: Pupils equal round extraocular movements intact, conjunctiva are normal. CV: s1, s2 regular LUNGS: No respiratory distress Musculoskeletal: Normal range of motion NEUROLOGICAL: Drowsy, able to wake with calling name. Speech clear. pinpoint pupils. able to follow commands. SKIN: Warm, Dry, normal turgor, no rashes or lesions noted. 05/20/20 10:51 - Related Data Allergies/Adverse Reactions: cephalexin [From Keflex] Allergy (Verified 04/15/20 08:02) Past Medical History Psychiatric Medical History: Denies: Hx Depression - Immunizations Immunizations up to date: Yes Hx Diphtheria, Pertussis, Tetanus Vaccination: Yes Physical Exam - Vital signs Vitals: Temp Pulse Resp BP Pulse Ox 98.3 F 96 16 133/87 H 98 05/20/20 09:44 05/20/20 09:44 05/20/20 09:44 05/20/20 09:44 10/06/20 09:44 Course - Vital Signs Vital signs: Temp Pulse Resp BP Pulse Ox 98.3 F 96 16 133/87 H 98 05/20/20 09:44 05/20/20 09:44 05/20/20 09:44 05/20/20 09:44 05/20/20 09:44
[2020-05-20] MEDS ORDERED: NALOXONE HCL INJ/PF 0.4 MG/1 ML SDV IV ONE (11:29)
[2020-05-20 11:54] LABS: ABSOLUTE LYMPHOCYTES (AUTO) 1.8 10^3/uL (0.5-4.7); ABSOLUTE MONOCYTES (AUTO) 0.5 10^3/uL (0.1-1.4); ABSOLUTE NEUT (AUTO) 6.8 10^3/uL (1.7-8.2); BASOPHILS % (AUTO) 0.5 % (0-2); EOSINOPHILS % (AUTO) 0.3 % (0-6); HEMATOCRIT 34.5 % (36.0-47.0); HEMOGLOBIN 11.5 g/dL (12.0-15.5); LYMPHOCYTES % (AUTO) 20.2 % (13-45); MEAN CORPUSCULAR HEMOGLOBIN 26.1 pg (27.0-33.4); MEAN CORPUSCULAR HGB CONC 33.5 g/dL (32.0-36.0); MEAN CORPUSCULAR VOLUME 78 fl (80-97); PLATELET COUNT 462 10^3/uL (150-450); RED BLOOD COUNT 4.42 10^6/uL (3.72-5.28); RED CELL DISTRIBUTION WIDTH 15.5 % (11.5-14.0); TOTAL CELLS COUNTED % (AUTO) 100 %; WHITE BLOOD COUNT 9.1 10^3/uL (4.0-10.5)
--- NOTE | 2020-05-20 12:01 | RADIOLOGY REPORT (SQ) ---
EXAM DESCRIPTION: CT HEAD WITHOUT IMAGES COMPLETED DATE/TIME: 05/20/2020 11:52 am REASON FOR STUDY: AMS over 4 days, worse in 1 day COMPARISON: 04/15/2020. TECHNIQUE: Axial images acquired through the brain without intravenous contrast. Images reviewed wi th bone, brain and subdural windows. Additional sagittal and coronal reconstructions were generated. Images stored on PACS. All CT scanners at this facility use dose modulation, iterative reconstruction, and/or weight based d osing when appropriate to reduce radiation dose to as low as reasonably achievable (ALARA). [facility]: Dose Right [facility]: CareDose [facility]: Dose Right [facility]: Teradose 4D [facility]: Floobits RADIATION DOSE: CT Rad equipment meets quality standard of care and radiation dose reduction techniq ues were employed. CTDIvol: 53.2 mGy. DLP: 1097 mGy-cm. mGy. LIMITATIONS: None. FINDINGS: VENTRICLES: Normal size and contour. CEREBRUM: No masses. No hemorrhage. No midline shift. No evidence for acute infarction. Normal gra y/white matter differentiation. No areas of low density in the white matter. CEREBELLUM: No masses. No hemorrhage. No alteration of density. No evidence for acute infarction. EXTRAAXIAL SPACES: No fluid collections. No masses. ORBITS AND GLOBE: No intra- or extraconal masses. Normal contour of globe without masses. CALVARIUM: No fracture. PARANASAL SINUSES: No fluid or mucosal thickening. SOFT TISSUES: No mass or hematoma. OTHER: No other significant finding. IMPRESSION: NORMAL BRAIN CT WITHOUT CONTRAST. EVIDENCE OF ACUTE STROKE: NO. COMMENT: Quality ID # [id number]: Final reports with documentation of one or more dose reduction techniques (e.g., Automated exposure control, adjustment of the mA and/or kV according to patient size, use of iterative reconstruction technique) TECHNICAL DOCUMENTATION: JOB ID: [id number] 2010 [employer]- All Rights Reserved Reading location - IP/workstation name: [email or web address]
[2020-05-20 12:10] LABS: ALBUMIN 4.1 g/dL (3.5-5.0); ALKALINE PHOSPHATASE 71 U/L (38-126); ANION GAP 9 (5-19); ASPARTATE AMINO TRANSFERASE 30 U/L (14-36); BILIRUBIN,DIRECT 0.3 mg/dL (0.0-0.4); BILIRUBIN,TOTAL 0.6 mg/dL (0.2-1.3); BLOOD UREA NITROGEN 15 mg/dL (7-20); CALCIUM 9.3 mg/dL (8.4-10.2); CARBON DIOXIDE 30 mmol/L (22-30); CHLORIDE 101 mmol/L (98-107); GLUCOSE 100 mg/dL (75-110); POTASSIUM 4.3 mmol/L (3.6-5.0); TOTAL PROTEIN 8.6 g/dL (6.3-8.2)
--- NOTE | 2020-05-20 12:24 | RADIOLOGY REPORT (SQ) ---
EXAM DESCRIPTION: CHEST 2 VIEWS IMAGES COMPLETED DATE/TIME: 05/20/2020 12:07 pm REASON FOR STUDY: AMS COMPARISON: 04/17/2020. EXAM PARAMETERS: NUMBER OF VIEWS: two views TECHNIQUE: Digital Frontal and Lateral radiographic views of the chest acquired. RADIATION DOSE: NA LIMITATIONS: none FINDINGS: LUNGS AND PLEURA: No opacities, masses or pneumothorax. No pleural effusion. MEDIASTINUM AND HILAR STRUCTURES: No masses or contour abnormalities. HEART AND VASCULAR STRUCTURES: Heart normal size. No evidence for failure. BONES: No acute findings. HARDWARE: None in the chest. OTHER: No other significant finding. IMPRESSION: NO ACUTE RADIOGRAPHIC FINDING IN THE CHEST. TECHNICAL DOCUMENTATION: JOB ID: [id number] 2010 [employer]- All Rights Reserved Reading location - IP/workstation name: [email or web address]
[2020-05-20 12:30] LABS: ACETAMINOPHEN < 10 ug/mL (10-30); ALCOHOL < 10 mg/dL (NONE DETECTED); SALICYLATE < 1.0 mg/dL (2.0-20.0)
--- NOTE | 2020-05-20 14:37 | RADIOLOGY REPORT (SQ) ---
EXAM DESCRIPTION: MRI LUMBAR SPINE WITHOUT IMAGES COMPLETED DATE/TIME: 05/20/2020 2:23 pm REASON FOR STUDY: back pain/incontinence COMPARISON: None. TECHNIQUE: Sagittal and Axial imaging includes T1, T2, STIR and gradient echo sequences. Coronal T2/ HASTE imaging. LIMITATIONS: Patient motion artifact limits axial acquisitions. FINDINGS: VISUALIZED UPPER ABDOMEN: Limited evaluation. No acute or suspicious findings suggested. SEGMENTATION: No transitional anatomy. The lowest well-developed disc space is labeled L5-S1. ALIGNMENT: Anatomic. VERTEBRAE: Intact. BONE MARROW: Normal. No marrow replacement or reactive changes. DISC SIGNAL: Normal. No significant abnormal signal or loss of height. POSTERIOR ELEMENTS: Generally intact. No pars defect evident. HARDWARE: None in the spine. CORD AND CONUS: Normal in size and signal intensity. Conus at the appropriate level. SOFT TISSUES: No aortic aneurysm seen. No bulky retroperitoneal adenopathy or mass. No paraspinal mas s or fluid. L1-L2: No significant spinal stenosis or exit foraminal stenosis. L2-L3: No significant spinal stenosis or exit foraminal stenosis. L3-L4: No significant spinal stenosis or exit foraminal stenosis. L4-L5: No significant spinal stenosis or exit foraminal stenosis. L5-S1: No significant spinal stenosis or exit foraminal stenosis. LOWER THORACIC: Incompletely imaged. No stenosis seen. SACRUM: Visualized upper sacrum intact. OTHER: Partially imaged imaged midline pelvic mass likely uterine in origin. IMPRESSION: 1. No evidence of high-grade neural impingement. 2. Partially imaged midline pelvic mass, likely uterine in origin. Recommend further evaluation wit h pelvic ultrasound. TECHNICAL DOCUMENTATION: JOB ID: [id number] 2010 [employer]- All Rights Reserved Reading location - IP/workstation name: [email or web address]
[2020-05-20 14:59] LABS: APPEARANCE,URINE CLEAR; BILIRUBIN,URINE NEGATIVE (NEGATIVE); COLOR,URINE YELLOW; GLUCOSE, URINE NEGATIVE (NEGATIVE); KETONES,URINE NEGATIVE (NEGATIVE); LEUKOCYTE ESTERASE,URINE NEGATIVE (NEGATIVE); NITRITE,URINE NEGATIVE (NEGATIVE); PROTEIN,URINE NEGATIVE (NEGATIVE); URINE SPECIFIC GRAVITY 1.025; UROBILINOGEN,URINE NEGATIVE mg/dL (<2.0)
[2020-05-20 15:13] LABS: URINE AMPHETAMINES SCREEN NEGATIVE; URINE BARBITURATES SCREEN NEGATIVE; URINE BENZODIAZEPINES SCREEN NEGATIVE; URINE COCAINE SCREEN NEGATIVE; URINE METHADONE SCREEN NEGATIVE; URINE PHENCYCLIDINE SCREEN NEGATIVE
[2020-05-20 15:15] LABS: URINE MARIJUANA (THC) SCREEN UNCONFIRMED POSITIVE
--- NOTE | 2020-05-20 16:49 | RADIOLOGY REPORT (SQ) ---
EXAM DESCRIPTION: U/S NON-OB PELVIS W/O DOP IMAGES COMPLETED DATE/TIME: 05/20/2020 4:32 pm REASON FOR STUDY: mass seen on mri COMPARISON: MRI lumbar spine dated 05/20/2020. TECHNIQUE: Dynamic and static grayscale images acquired of the pelvis via transabdominal approach an d recorded on PACS. Additional selected color Doppler and spectral images recorded. LIMITATIONS: None. FINDINGS: UTERUS: Heterogenous masses measuring 8.1 cm and 10.9 cm. ENDOMETRIAL STRIPE: Not visualized. CERVIX: No nabothian cysts. RIGHT OVARY AND DOPPLER: Normal size. No worrisome masses. Normal arterial vascular flow without evid ence for torsion. LEFT OVARY AND DOPPLER: Normal size. No worrisome masses. Normal arterial vascular flow without evide nce for torsion. FREE FLUID: None noted. OTHER: No other significant finding. MEASUREMENTS: UTERUS: 11.0 x 11.6 x 18.2 cm. ENDOMETRIAL STRIPE: Not visualized. RIGHT OVARY: 2.0 x 2.9 x 3.0 cm. LEFT OVARY: 1.6 x 2.2 x 2.9 cm. IMPRESSION: LARGE UTERINE MASSES CONSISTENT WITH FIBROIDS. TECHNICAL DOCUMENTATION: JOB ID: [id number] 2010 [employer]- All Rights Reserved Rev Reading location - IP/workstation name: [email or web address]
--- NOTE | 2020-05-20 17:38 | EKG REPORT ---
SEVERITY:- NORMAL ECG - SINUS RHYTHM : Confirmed by: Tri Rivera MD 20-May-2020 17:37:23
--- NOTE | 2020-05-20 17:53 | ER Document Report ---
ED General - General Chief Complaint: Altered Mental Status Stated Complaint: HIP/LEG PAIN Time Seen by Provider: 05/20/20 10:39 Mode of Arrival: Wheelchair Information source: Patient TRAVEL OUTSIDE OF THE [place] IN LAST 30 DAYS: No - HPI Notes: Patient is brought in from home with complaints of back pain pelvic pain. While apparently a history was being obtained in triage patient became very somnolent so she was brought back to room 11 and given Narcan. After this patient has been awake and talkative the entire time. Patient denies taking any type of narcotic medication but mom states the patient does take pain medication. However I have asked patient multiple different times about taking narcotic pain medication and patient denies. He denies any type of illicit drug use. She was not able to explain to me why she was so sleepy. She says she has been sleeping normally at home and not being able to sleep is not been an issue. Patient s tates she only takes ibuprofen for her pain at home. Patient states she has had some trouble controlling her urine the last 3 to 4 days and has had to wear depends she is also had a heavy vaginal bleeding. She has had some weakness when she tries to walk as well. The pain in the lower back and pelvic area has been constant and severe. It is worse with movement and better with rest. It radiates from the back to the front. It is sharp - Related Data Allergies/Adverse Reactions: cephalexin [From Keflex] Allergy (Verified 05/20/20 11:50) Penicillins Allergy (Verified 05/20/20 11:50) Home Medications: prescribed metoprolol, lisinopril, atorvastatin but not currently taking them Past Medical History - General Information source: Patient - Social History Smoking Status: Current Every Day Smoker Frequency of alcohol use: Social Drug Abuse: None Family History: Reviewed & Not Pertinent - Past Medical History Cardiac Medical History: Reports: Hx Hypertension Psychiatric Medical History: Denies: Hx Depression - Immunizations Immunizations up to date: Yes Hx Diphtheria, Pertussis, Tetanus Vaccination: Yes Review of Systems - Review of Systems Constitutional: denies: Chills, Fever Cardiovascular: denies: Chest pain, Palpitations Respiratory: denies: Cough, Short of breath -: Yes All other systems reviewed and negative Physical Exam - Vital signs Vitals: Temp Pulse Resp BP Pulse Ox 98.3 F 96 16 133/87 H 98 10/06/20 09:44 05/20/20 09:44 05/20/20 09:44 05/20/20 09:44 05/20/20 09:44 Interpretation: Normal - General General appearance: Appears well, Alert - HEENT Head: Normocephalic, Atraumatic Eyes: Normal Pupils: PERRL - Respiratory Respiratory status: No respiratory distress Chest status: Nontender Breath sounds: Normal Chest palpation: Normal - Cardiovascular Rhythm: Regular Heart sounds: Normal auscultation Murmur: No - Abdominal Inspection: Normal Distension: No distension Bowel sounds: Normal Tenderness: Tender - Patient has some mild to moderate pelvic tenderness to palpation but no rebound or guarding. Organomegaly: No organomegaly - Back Back: Normal, Nontender - Extremities General upper extremity: Normal inspection, Nontender, Normal color, Normal ROM, Normal temperature General lower extremity: Normal inspection, Nontender, Normal color, Normal ROM, Normal temperature, Normal weight bearing. No: Jonatan's sign - Neurological Neuro grossly intact: Yes Cognition: Normal Orientation: AAOx4 [place] Coma Scale Eye Opening: Spontaneous [place] Coma Scale Verbal: Oriented [place] Coma Scale Motor: Obeys Commands [place] Coma Scale Total: 15 Speech: Normal Motor strength normal: LUE, RUE, LLE, RLE Sensory: Normal - Psychological Associated symptoms: Normal affect, Normal mood - Skin Skin Temperature: Warm Skin Moisture: Dry Skin Color: Normal Course - Re-evaluation Re-evalutation: 05/20/20 17:52 Due to patient's complaints of lower back pain with incontinence and leg weakness an MRI of the lumbar spine was obtained which shows no evidence of any type of abnormality except for a pelvic mass. Patient then had an ultrasound performed which shows this pelvic mass to be a large uterine fibroid which would explain the patient's pelvic pain as well as vaginal bleeding. This does not explain the leg weakness or incontinence of urine but at this time I do not feel like there is evidence of any type of spinal cord abnormality since patient can ambulate well. - Vital Signs Vital signs: Temp Pulse Resp BP Pulse Ox 98.3 F 85 18 119/61 100 05/20/20 09:44 05/20/20 11:10 05/20/20 16:01 05/20/20 16:00 05/20/20 16:01 - Laboratory Result Diagrams: 05/20/20 11:38 10/06/20 11:38 Laboratory results interpreted by me: 05/20/20 05/20/20 05/20/20 11:38 11:38 14:35 Hgb 11.5 L Hct 34.5 L MCV 78 L MCH 26.1 L RDW 15.5 H Plt Count 462 H Total Protein 8.6 H Urine Ascorbic Acid 20 H Salicylates < 1.0 L Acetaminophen < 10 L - Diagnostic Test Radiology reviewed: Image reviewed, Reports reviewed Discharge - Discharge Clinical Impression: Uterine fibroid Qualifiers: Uterine leiomyoma location: unspecified location Qualified Code(s): D25.9 - Leiomyoma of uterus, unspecified Condition: Stable Disposition: HOME, SELF-CARE Instructions: Dysfunctional Uterine Bleeding ([facility]) Additional Instructions: Please call reel winder as soon as possible to arrange follow up Prescriptions: Naproxen 500 mg PO BID PRN 15 Days #20 tablet PRN Reason: For Pain Forms: Return to Work Referrals: CHARO PALENCIA MD [ACTIVE STAFF] - Follow up in 1 week
[2020-05-20 19:55] VITALS: BP 139/82
== END 2020-05-20 19:40 | disposition home or self-care (01) ==
LOC: ER 09:37
DX: D25.9 Leiomyoma of uterus, unspecified (principal); M54.5 Low back pain; R10.2 Pelvic and perineal pain; R40.0 Somnolence; R32 Unspecified urinary incontinence; R53.1 Weakness; N93.9 Abnormal uterine and vaginal bleeding, unspecified; F17.200 Nicotine dependence, unspecified, uncomplicated; I10 Essential (primary) hypertension; Z88.1 Allergy status to other antibiotic agents; Z88.0 Allergy status to penicillin
CPT/HCPCS: 93005; 99285; 96361; 96374; 36415; 80307 ×4; 84702; 85025; 80053; 81001; 84484; 72148; 71046; 76856; 70450; 93010; J2310; J7030

== ENCOUNTER → 2020-05-27 | Outpatient (CLI) | payer SELFPAY ==
[2020-05-27 13:19] LABS: ABSOLUTE EOSINOPHILS # (AUTO) 0.1 10^3/uL (0.0-0.6); ABSOLUTE LYMPHOCYTES (AUTO) 1.4 10^3/uL (0.5-4.7); ABSOLUTE MONOCYTES (AUTO) 0.3 10^3/uL (0.1-1.4); ABSOLUTE NEUT (AUTO) 3.6 10^3/uL (1.7-8.2); BASOPHILS % (AUTO) 0.6 % (0-2); EOSINOPHILS % (AUTO) 1.9 % (0-6); HEMATOCRIT 36.4 % (36.0-47.0); HEMOGLOBIN 11.8 g/dL (12.0-15.5); LYMPHOCYTES % (AUTO) 26.1 % (13-45); MEAN CORPUSCULAR HEMOGLOBIN 25.4 pg (27.0-33.4); MEAN CORPUSCULAR HGB CONC 32.6 g/dL (32.0-36.0); MEAN CORPUSCULAR VOLUME 78 fl (80-97); MONOCYTES % (AUTO) 6.1 % (3-13); PLATELET COUNT 450 10^3/uL (150-450); RED BLOOD COUNT 4.66 10^6/uL (3.72-5.28); RED CELL DISTRIBUTION WIDTH 15.4 % (11.5-14.0); SEGMENTED NEUTROPHILS % (AUTO) 65.3 % (42-78); TOTAL CELLS COUNTED % (AUTO) 100 %; WHITE BLOOD COUNT 5.5 10^3/uL (4.0-10.5)
[2020-05-27 13:41] LABS: ALBUMIN 4.2 g/dL (3.5-5.0); ALKALINE PHOSPHATASE 66 U/L (38-126); ANION GAP 11 (5-19); ASPARTATE AMINO TRANSFERASE 35 U/L (14-36); BILIRUBIN,DIRECT 0.2 mg/dL (0.0-0.4); BLOOD UREA NITROGEN 16 mg/dL (7-20); CALCIUM 9.7 mg/dL (8.4-10.2); CARBON DIOXIDE 27 mmol/L (22-30); CHLORIDE 101 mmol/L (98-107); CHOLESTEROL 168.64 mg/dL (0-200); GLUCOSE 84 mg/dL (75-110); TOTAL PROTEIN 8.4 g/dL (6.3-8.2); TRIGLYCERIDES 108 mg/dL (<150)
[2020-05-27 14:13] LABS: DIRECT LDL 109 mg/dL (<100)
== END ==
LOC: OD 11:50
PROVIDERS: ATTEND Family Medicine Geriatric Medicine
DX: Z13.0 Encounter for screening for diseases of the blood and blood-forming organs and certain disorders involving the immune mechanism (principal); Z13.1 Encounter for screening for diabetes mellitus; Z13.220 Encounter for screening for lipoid disorders
CPT/HCPCS: 36415; 80053; 80061; 84443; 85025

== ENCOUNTER 2020-05-29 08:31 | Emergency (ER) | payer SELFPAY ==
[2020-05-29 09:26] LABS: ABSOLUTE MONOCYTES (AUTO) 0.5 10^3/uL (0.1-1.4); SEGMENTED NEUTROPHILS % (AUTO) 68.8 % (42-78); TOTAL CELLS COUNTED % (AUTO) 100 %
--- NOTE | 2020-05-29 09:29 | ER Document Report ---
ED General - General Chief Complaint: Altered Mental Status Stated Complaint: ALTERED MENTAL STATUS Time Seen by Provider: 05/29/20 09:29 Primary Care Provider: NIKI STRINGER MD [Primary Care Provider] - Follow up as needed TRAVEL OUTSIDE OF THE [place] IN LAST 30 DAYS: No - HPI Notes: 30-year-old female presents via EMS for initial concerns of altered mental status. Patient states that she is here for feeling sick to her stomach, she has some pain on the right side of her abdomen. She denies vomiting, diarrhea or nausea. She is unsure if she has had any surgeries before. She also states that she has the hiccups. She denies complaints that she is altered and states she is overall her normal self. - Related Data Allergies/Adverse Reactions: cephalexin [From Keflex] Allergy (Verified 05/20/20 11:50) Penicillins Allergy (Verified 05/20/20 11:50) Home Medications: metoprolol, lisinopril, naproxen Past Medical History - Social History Smoking Status: Unknown if Ever Smoked Family History: Reviewed & Not Pertinent - Past Medical History Cardiac Medical History: Reports: Hx Hypertension Psychiatric Medical History: Denies: Hx Depression - Immunizations Immunizations up to date: Yes Hx Diphtheria, Pertussis, Tetanus Vaccination: Yes Review of Systems - Review of Systems Constitutional: denies: Fever EENT: No symptoms reported Cardiovascular: denies: Chest pain Respiratory: denies: Cough, Short of breath Gastrointestinal: Abdominal pain. denies: Diarrhea, Nausea, Vomiting Genitourinary: No symptoms reported Female Genitourinary: No symptoms reported Musculoskeletal: No symptoms reported Skin: No symptoms reported Hematologic/Lymphatic: No symptoms reported Neurological/Psychological: No symptoms reported Physical Exam - Vital signs Vitals: Resp Pulse Ox 26 H 98 05/29/20 08:49 05/29/20 08:49 - General General appearance: Appears well, Alert In distress: None - HEENT Head: Normocephalic, Atraumatic Extraocular movements intact: Yes Pupils: PERRL - Respiratory Breath sounds: Normal - Cardiovascular Rhythm: Tachycardia Heart sounds: Normal auscultation Normal capillary refill: Yes - Abdominal Inspection: Obese Distension: No distension Bowel sounds: Normal Tenderness: Tender - Mild right upper quadrant. No: Guarding, Rebound - Extremities General upper extremity: Normal inspection General lower extremity: Normal inspection. No: Edema - Neurological Neuro grossly intact: Yes Notes: Patient is alert and interactive, she communicates in full sentences, speech clear. Seemingly gives a medical history. However when asked where does she live or what season is it, patient appears to flutter her eyes and then shrugs her shoulders and refuses answer. However patient able to state her her name, knows she is in the hospital, and states that she lives with Margarette. She moves all extremities, she is a GCS 15. No focal neuro deficits. - Psychological Associated symptoms: Other - Odd affect - Skin Skin Temperature: Warm Course - Re-evaluation Re-evalutation: 30-year-old female arrives here via concerns for altered mental status. Patient currently sitting she feels her normal self. On exam she is nontoxic appearing, she is alert and conversant, question her volitional participation in exam. She has no gross neuro deficits. Has an odd affect and a question if some of her behavior is psychiatric/behavioral in origin. Per nursing mother disclosed that she has a psychiatric appointment June 18. We will additionally obtain CT head though have a low concern for bleed. She complains of right upper quadrant pain, she has some mild tenderness there, abdomen is overall nonperitoneal. Will obtain ultrasound to assess for acute cholecystitis versus cholelithiasis. She is mildly tachycardic at 110, will provide fluids and continue to monitor. Patient had an admission in March for acute encephalopathy, I reviewed the discharge summary. Appears that patient did have some bizarre behavior during her admission. 05/29/20 10:21 No leukocytosis or left shift. Hemoglobin similar to previous. Electrolytes okay. Creatinine within normal limits. There is no elevation of T bili, LFTs or lipase. Troponin is negative. Ethanol is negative. 05/29/20 12:02 Urine does not suggest UTI. Urine drug screen is positive for THC. Head CT negative. Chest x-ray negative. Right upper quadrant ultrasound negative. 05/29/20 12:06 Mother is at bedside. I updated her on the overall reassuring work-up, at this point we consider patient to be medically cleared. Patient's mother details that over the past 10 days patient has been having bizarre behavior, not acting like her normal self, decreased interaction at home. Main reason for today's ED visit is for her to see psychology. I think this is reasonable as I do believe that there is some behavioral or psychiatric issue going on, possible substance- induced mood disorder from her THC. Consult has been placed. 05/29/20 15:26 Patient has been seen by behavioral health, the current consensus is that cristi caro may have been smoking weed that was laced with the substance and it needs time to metabolize out of her system. Does not believe she needs inpatient psychiatric care at this time. They have recommended Thorazine/Cogentin. However if patient is going to be discharged, I will hold on prescribing these meds at this time, behavioral health is going to touch base with mother about dispo planning 05/29/20 16:02 Retouch base with [facility], she has been cleared from their perspective . Tachycardia has resolved. Patient will be discharged home at this time. - Vital Signs Vital signs: Temp Pulse Resp BP Pulse Ox 99.0 F 102 H 24 H 137/95 H 98 05/29/20 09:10 05/29/20 13:13 05/29/20 14:01 05/29/20 14:00 05/29/20 14:01 - Laboratory Result Diagrams: 05/29/20 08:57 05/29/20 08:57 Laboratory results interpreted by me: 05/29/20 05/29/20 05/29/20 08:57 08:57 10:14 Hgb 11.8 L Hct 34.3 L MCV 77 L MCH 26.6 L RDW 15.5 H Sodium 136.0 L Urine Ketones TRACE H - Diagnostic Test Radiology reviewed: Image reviewed, Reports reviewed Discharge - Discharge Clinical Impression: Marijuana abuse Adverse drug reaction Qualifiers: Encounter type: initial encounter Qualified Code(s): T50.905A - Adverse effect of unspecified drugs, medicaments and biological substances, initial encounter Disposition: HOME, SELF-CARE Additional Instructions: Please discontinue all use of marijuana or other illicit drugs. Please follow- up with the resources provided to you. Return to the emergency department for any concerning worsening symptoms. Referrals: NIKI STRINGER MD [Primary Care Provider] - Follow up as needed
[2020-05-29 09:31] LABS: ABSOLUTE LYMPHOCYTES (AUTO) 0.8 10^3/uL (0.5-4.7); EOSINOPHILS % (AUTO) 0.3 % (0-6); HEMATOCRIT 34.3 % (36.0-47.0); HEMOGLOBIN 11.8 g/dL (12.0-15.5); LYMPHOCYTES % (AUTO) 18.4 % (13-45); MEAN CORPUSCULAR HEMOGLOBIN 26.6 pg (27.0-33.4); MEAN CORPUSCULAR HGB CONC 34.4 g/dL (32.0-36.0); MEAN CORPUSCULAR VOLUME 77 fl (80-97); MONOCYTES % (AUTO) 11.5 % (3-13); PLATELET COUNT 387 10^3/uL (150-450); RED BLOOD COUNT 4.44 10^6/uL (3.72-5.28); RED CELL DISTRIBUTION WIDTH 15.5 % (11.5-14.0); WHITE BLOOD COUNT 4.4 10^3/uL (4.0-10.5)
[2020-05-29 09:32] LABS: PROTHROMBIN TIME 13.4 SEC (11.4-15.4)
[2020-05-29] MEDS ORDERED: KETOROLAC TROMETHAMINE INJ/PF 30 MG/1 ML SDV IV ONE (09:43)
[2020-05-29 09:46] LABS: ALBUMIN 3.8 g/dL (3.5-5.0); ALKALINE PHOSPHATASE 63 U/L (38-126); ANION GAP 9 (5-19); ASPARTATE AMINO TRANSFERASE 30 U/L (14-36); BILIRUBIN,DIRECT 0.2 mg/dL (0.0-0.4); BILIRUBIN,TOTAL 0.8 mg/dL (0.2-1.3); BLOOD UREA NITROGEN 11 mg/dL (7-20); CALCIUM 9.3 mg/dL (8.4-10.2); CARBON DIOXIDE 27 mmol/L (22-30); CHLORIDE 100 mmol/L (98-107); CREATINE KINASE 93 U/L (30-135); GLUCOSE 93 mg/dL (75-110); TOTAL PROTEIN 7.9 g/dL (6.3-8.2)
[2020-05-29 09:48] LABS: ALCOHOL < 10 mg/dL (NONE DETECTED)
[2020-05-29] MEDS: RINGERS SOLUTION,LACTATED 1,000 ML IV PRN ×2 (09:52→11:36)
[2020-05-29 10:43] LABS: APPEARANCE,URINE CLEAR; BILIRUBIN,URINE NEGATIVE (NEGATIVE); COLOR,URINE YELLOW; GLUCOSE, URINE NEGATIVE (NEGATIVE); KETONES,URINE TRACE mg/dL (NEGATIVE); LEUKOCYTE ESTERASE,URINE NEGATIVE (NEGATIVE); NITRITE,URINE NEGATIVE (NEGATIVE); PROTEIN,URINE NEGATIVE (NEGATIVE); URINE SPECIFIC GRAVITY 1.016; UROBILINOGEN,URINE NEGATIVE mg/dL (<2.0)
[2020-05-29 11:02] LABS: URINE AMPHETAMINES SCREEN NEGATIVE; URINE BARBITURATES SCREEN NEGATIVE; URINE BENZODIAZEPINES SCREEN NEGATIVE; URINE COCAINE SCREEN NEGATIVE; URINE METHADONE SCREEN NEGATIVE; URINE PHENCYCLIDINE SCREEN NEGATIVE
[2020-05-29 11:03] LABS: URINE MARIJUANA (THC) SCREEN UNCONFIRMED POSITIVE
--- NOTE | 2020-05-29 11:18 | RADIOLOGY REPORT (SQ) ---
EXAM DESCRIPTION: U/S ABDOMEN LIMITED W/O DOP IMAGES COMPLETED DATE/TIME: 05/29/2020 11:07 am REASON FOR STUDY: RUQ pain, eval acute tu COMPARISON: None. TECHNIQUE: Dynamic and static grayscale images acquired of the abdomen and recorded on PACS. Additio nal selected color Doppler and spectral images recorded. LIMITATIONS: Limited due to the patient's altered mental status. FINDINGS: PANCREAS: No masses. Visualized pancreatic duct normal caliber. LIVER: No masses. Echotexture normal. LIVER VASCULATURE: Normal directional flow of the main portal vein and hepatic veins. GALLBLADDER: No stones. Normal wall thickness. No pericholecystic fluid. ULTRASOUND-DETECTED PATTERSON'S SIGN: Negative. INTRAHEPATIC DUCTS AND COMMON DUCT: CBD and intrahepatic ducts normal caliber. No filling defects. INFERIOR VENA CAVA: Normal flow. AORTA: No aneurysm. RIGHT KIDNEY: Normal size. Normal echogenicity. No solid or suspicious masses. No hydronephrosis. No calcifications. PERITONEAL AND RIGHT PLEURAL SPACE: No ascites or effusions. OTHER: No other significant findings. IMPRESSION: NORMAL RIGHT UPPER QUADRANT ULTRASOUND. TECHNICAL DOCUMENTATION: JOB ID: [id number] 2010 [employer]- All Rights Reserved Reading location - IP/workstation name: [email or web address]
--- NOTE | 2020-05-29 11:19 | RADIOLOGY REPORT (SQ) ---
EXAM DESCRIPTION: CHEST SINGLE VIEW IMAGES COMPLETED DATE/TIME: 05/29/2020 11:09 am REASON FOR STUDY: eval consolidation COMPARISON: 05/20/2020. EXAM PARAMETERS: NUMBER OF VIEWS: One view. TECHNIQUE: Single frontal radiographic view of the chest acquired. RADIATION DOSE: NA LIMITATIONS: None. FINDINGS: LUNGS AND PLEURA: No opacities, masses or pneumothorax. No pleural effusion. MEDIASTINUM AND HILAR STRUCTURES: No masses. Contour normal. HEART AND VASCULAR STRUCTURES: Heart normal in size. Normal vasculature. BONES: No acute findings. HARDWARE: None in the chest. OTHER: No other significant finding. IMPRESSION: NO ACUTE RADIOGRAPHIC FINDING IN THE CHEST. TECHNICAL DOCUMENTATION: JOB ID: [id number] 2010 [employer]- All Rights Reserved Reading location - IP/workstation name: [email or web address]
--- NOTE | 2020-05-29 11:32 | RADIOLOGY REPORT (SQ) ---
EXAM DESCRIPTION: CT HEAD WITHOUT IMAGES COMPLETED DATE/TIME: 05/29/2020 11:16 am REASON FOR STUDY: AMS COMPARISON: 05/20/2020. TECHNIQUE: Axial images acquired through the brain without intravenous contrast. Images reviewed wi th bone, brain and subdural windows. Additional sagittal and coronal reconstructions were generated. Images stored on PACS. All CT scanners at this facility use dose modulation, iterative reconstruction, and/or weight based d osing when appropriate to reduce radiation dose to as low as reasonably achievable (ALARA). [facility]: Dose Right [facility]: CareDose [facility]: Dose Right [facility]: Teradose 4D [facility]: [email or web address] RADIATION DOSE: CT Rad equipment meets quality standard of care and radiation dose reduction techniq ues were employed. CTDIvol: 53.2 mGy. DLP: 1017 mGy-cm. mGy. LIMITATIONS: Motion artifact. FINDINGS: VENTRICLES: Normal size and contour. CEREBRUM: No masses. No hemorrhage. No midline shift. No evidence for acute infarction. Normal gra y/white matter differentiation. No areas of low density in the white matter. CEREBELLUM: No masses. No hemorrhage. No alteration of density. No evidence for acute infarction. EXTRAAXIAL SPACES: No fluid collections. No masses. ORBITS AND GLOBE: No intra- or extraconal masses. Normal contour of globe without masses. CALVARIUM: No fracture. PARANASAL SINUSES: No fluid or mucosal thickening. SOFT TISSUES: No mass or hematoma. OTHER: No other significant finding. IMPRESSION: NORMAL BRAIN CT WITHOUT CONTRAST. EVIDENCE OF ACUTE STROKE: NO. COMMENT: Quality ID # [id number]: Final reports with documentation of one or more dose reduction techniques (e.g., Automated exposure control, adjustment of the mA and/or kV according to patient size, use of iterative reconstruction technique) TECHNICAL DOCUMENTATION: JOB ID: [id number] 2010 [employer]- All Rights Reserved Reading location - IP/workstation name: [email or web address]
[2020-05-29 16:28] VITALS: BP 150/99
--- NOTE | 2020-05-29 16:49 | ER Document Report ---
Doctor's Note Notes: 05/29/20 16:49 After discharge, patient's mother then stating she is uncomfortable taking her home and wants her to be placed somewhere. Will reinvolve behavioral health. Patient signed out pending reevaluation.
--- NOTE | 2020-05-29 17:46 | PSYCHOLOGICAL NOTE ---
Psych Note - Psych Note Date seen by psych provider: 05/29/20 Time seen by psych provider: 14:23 - Evaluation with patient then mother from [id number]. Psych Note: Patient is a 30 year old female who presented to the Emergency Department this morning via EMS for altered mental status. She reportedly smoked cannabis which her Primary Care Provider thinks was laced with something. Patient at first answered questions by shaking her head yes or no. She admitted she has not been her self and she was tearful. Mother Gianna at bedside. Spoke to both separately. Mother stated patient started acting different 05/16/2020. She stated patient "has been acting childlike, disoriented, being unsteady on feet and saying she can't walk though she moves her extremities while laying or sitting, has been incontinent and urinating on self to extent she is wearing depends, been out of it/lethargic/loopy, keeps recalling her last day of work, moves her hands/fingers in ways as if she's at work typing." Mother reported she brought patient to the hospital 05/20/2020, at that time patient was more alert. Then they went to Primary Care Dr. Zamora on 05/22/2020, patient admitted to smoking blunts, and he felt patient had smoked cannabis that was laced so recommended follow up at [facility]. Mother said today she called Dr. Zamora's emergency line and he instructed her to call and bring patient to the ED. Mother stated patient knows things like her birthday and that mother was mother. She described patient as "intelligent, the genius in the family, alert and bubbly" at baseline. Mother denied mental health history for patient, as well as family history with exception of father which was related and a half sister which was trauma related. Patient was saying something and when asked she said "I was just singing." This clinician physically moved patient's legs from straight into bending positions, one at a time, about 3-4 times each. Discussed with mother and patient how detox facilities do not accept patient's for cannabis use and we are unsure what the cannabis may have been laced with. Gave mother the [facility] number and mother called right away. She spoke to Beatriz who stated no female bed availability and if patient is not mobile they cannot meet her needs. They noted could try the [facility]. Provided mother with the substance abuse resource sheet which highlighted [facility], and [facility]. Explained [facility] may have closed down. Also explained detox is voluntary, they would want to speak to patient, they have to use their own transportation, and it would be up to the facility if they felt they could meet her needs/treat her. Encouraged mother to utilize natural supports to aid in patient's care while mother had to work. Mother stated they do not have a lot of local supports. Psychoeducated mother and patient that depending on what the cannabis was laced with would determine how long it takes to process through the body. Also noted continued use of cannabis would likely continue to affect mental state and behavior change whether it was still laced or not. Encouraged patient to abstain from any cannabis use. Clinical Presentation: Cannabis Use Disorder Moderate to Severe (Urine Drug Screen positive for it) Substance induced psychosis/behavioral change Medication recommendations made by the psychiatric medication provider Dr. Malcom K[facility] includes: Add Thorazine 50MG by mouth or Intramuscular once now for psychosis/calming effect Add Cogentin 1MG by mouth or Intramuscular once now to curb tremor side effects often associated with antipsychotic medications Impression/Plan: Patient is cleared from acute psychiatric services. Given no psychiatric history, she is 30 and most mental health onsets are seen late teens/early twenties it is felt this could be related to laced cannabis. Urine Drug Screen is positive for cannabis and patient admitted to her PCM she smokes blunts. Mother and patient provided with the substance abuse resource sheet for detox facilities and educated that typically detox facilities do not accept for cannabis. PCM had already recommended follow up with [facility] which is an appropriate outpatient agency. Consulted with Dr. Davila regarding the management and care of patient. ED Physician in agreement with recommendations.
--- NOTE | 2020-05-29 21:55 | EKG REPORT ---
SEVERITY:- ABNORMAL ECG - SINUS TACHYCARDIA PROBABLE LEFT ATRIAL ABNORMALITY NONSPECIFIC T ABNORMALITIES, DIFFUSE LEADS : Confirmed by: Roxy Chavez 29-May-2020 21:54:17
== END 2020-05-29 17:55 | disposition home or self-care (01) ==
LOC: ER 08:31
DX: F12.10 Cannabis abuse, uncomplicated (principal); R06.6 Hiccough; R10.11 Right upper quadrant pain; R41.82 Altered mental status, unspecified; T50.905A Adverse effect of unspecified drugs, medicaments and biological substances, initial encounter; R10.811 Right upper quadrant abdominal tenderness; R00.0 Tachycardia, unspecified; I10 Essential (primary) hypertension; Z88.1 Allergy status to other antibiotic agents; Z88.0 Allergy status to penicillin; Z79.899 Other long term (current) drug therapy; Z79.1 Long term (current) use of non-steroidal anti-inflammatories (NSAID)
CPT/HCPCS: 93005; 99285; 96360; 96361; 51701; 36415; 82962; 80307 ×2; 82550; 83690; 85025; 85610; 81025; 80053; 81001; 84484; 71045; 76705; 70450; 93010; J1885; J7120

== ENCOUNTER 2020-06-14 00:53 | Emergency (ER) | payer SELFPAY ==
[2020-06-14] MEDS ORDERED: NORMAL SALINE 1000 ML 1,000 ML IV ONE (01:23)
[2020-06-14] MEDS ORDERED: ONDANSETRON HCL INJ/PF 4 MG/2 ML SDV IV ONE (01:24)
--- NOTE | 2020-06-14 01:24 | ER Document Report ---
ED Medical Screen (RME) - General Chief Complaint: Abdominal Pain Stated Complaint: ABDOMINAL PAIN Time Seen by Provider: 06/14/20 01:19 Primary Care Provider: NIKI STRINGER MD [Primary Care Provider] - Follow up as needed Notes: Patient presents complaining of lower abdominal pain for the past week. Patient reports nausea and diarrhea x3 episodes. Patient denies any urinary symptoms. Patient reports family member recently tested for Covid. Patient denies any cough or cold symptoms. Patient denies any chronic medical problems. I have greeted and performed a rapid initial assessment of this patient. A c omprehensive ED assessment and evaluation of the patient, analysis of test results and completion of the medical decision making process will be conducted by additional ED providers. TRAVEL OUTSIDE OF THE [place] IN LAST 30 DAYS: No - Related Data Allergies/Adverse Reactions: cephalexin [From Keflex] Allergy (Verified 06/14/20 01:02) Penicillins Allergy (Verified 06/14/20 01:02) Past Medical History - Past Medical History Cardiac Medical History: Reports: Hx Hypertension Psychiatric Medical History: Denies: Hx Depression - Immunizations Immunizations up to date: Yes Hx Diphtheria, Pertussis, Tetanus Vaccination: Yes Physical Exam - Vital signs Vitals: Temp Pulse Resp BP Pulse Ox 98 F 100 19 120/85 100 06/14/20 01:04 06/14/20 01:04 06/14/20 01:04 06/14/20 01:04 06/14/20 01:04 - Abdominal Inspection: Morbidly Obese Tenderness: Tender - Lower abdominal tenderness Course - Vital Signs Vital signs: Temp Pulse Resp BP Pulse Ox 98 F 100 19 120/85 100 06/14/20 01:04 06/14/20 01:04 06/14/20 01:04 06/14/20 01:04 06/14/20 01:04 - Laboratory Result Diagrams: 06/14/20 01:16 06/14/20 01:16 Doctor's Discharge - Discharge Referrals: NIKI STRINGER MD [Primary Care Provider] - Follow up as needed
[2020-06-14 01:30] LABS: ABSOLUTE BASOPHILS # (AUTO) 0.1 10^3/uL (0.0-0.2); ABSOLUTE EOSINOPHILS # (AUTO) 0.1 10^3/uL (0.0-0.6); ABSOLUTE LYMPHOCYTES (AUTO) 2.2 10^3/uL (0.5-4.7); ABSOLUTE MONOCYTES (AUTO) 0.5 10^3/uL (0.1-1.4); BASOPHILS % (AUTO) 0.7 % (0-2); EOSINOPHILS % (AUTO) 1.5 % (0-6); HEMATOCRIT 39.6 % (36.0-47.0); HEMOGLOBIN 13.2 g/dL (12.0-15.5); MEAN CORPUSCULAR HEMOGLOBIN 25.4 pg (27.0-33.4); MEAN CORPUSCULAR HGB CONC 33.3 g/dL (32.0-36.0); MEAN CORPUSCULAR VOLUME 76 fl (80-97); MONOCYTES % (AUTO) 6.2 % (3-13); PLATELET COUNT 543 10^3/uL (150-450); RED BLOOD COUNT 5.18 10^6/uL (3.72-5.28); RED CELL DISTRIBUTION WIDTH 15.3 % (11.5-14.0); SEGMENTED NEUTROPHILS % (AUTO) 63.6 % (42-78); TOTAL CELLS COUNTED % (AUTO) 100 %; WHITE BLOOD COUNT 7.8 10^3/uL (4.0-10.5)
[2020-06-14 01:48] LABS: ALBUMIN 3.9 g/dL (3.5-5.0); ALKALINE PHOSPHATASE 64 U/L (38-126); ANION GAP 9 (5-19); ASPARTATE AMINO TRANSFERASE 32 U/L (14-36); BILIRUBIN,DIRECT 0.2 mg/dL (0.0-0.4); BLOOD UREA NITROGEN 18 mg/dL (7-20); CALCIUM 9.6 mg/dL (8.4-10.2); CARBON DIOXIDE 28 mmol/L (22-30); CHLORIDE 100 mmol/L (98-107); GLUCOSE 90 mg/dL (75-110)
[2020-06-14 04:22] LABS: APPEARANCE,URINE CLOUDY; BILIRUBIN,URINE NEGATIVE (NEGATIVE); COLOR,URINE YELLOW; GLUCOSE, URINE NEGATIVE (NEGATIVE); KETONES,URINE TRACE mg/dL (NEGATIVE); LEUKOCYTE ESTERASE,URINE TRACE (NEGATIVE); NITRITE,URINE NEGATIVE (NEGATIVE); PROTEIN,URINE 30 mg/dL (NEGATIVE)
[2020-06-14 04:33] LABS: POTASSIUM 3.8 mmol/L (3.6-5.0)
[2020-06-14 04:40] LABS: URINE AMPHETAMINES SCREEN NEGATIVE; URINE BARBITURATES SCREEN NEGATIVE; URINE BENZODIAZEPINES SCREEN NEGATIVE; URINE COCAINE SCREEN NEGATIVE; URINE MARIJUANA (THC) SCREEN UNCONFIRMED POSITIVE; URINE METHADONE SCREEN NEGATIVE; URINE PHENCYCLIDINE SCREEN NEGATIVE
[2020-06-14] MEDS ORDERED: KETOROLAC TROMETHAMINE INJ/PF 30 MG/1 ML SDV IV ONE (04:57)
--- NOTE | 2020-06-14 06:28 | RADIOLOGY REPORT (SQ) ---
Ultrasound of the pelvis: 06/14/2020 5:25 AM CDT HISTORY: 30-year-old patient with left lower quadrant abdominal pain. TECHNIQUE: Multiple grayscale and color Doppler images of the pelvis were obtained transabdominally and transvaginally. COMPARISON: Pelvic ultrasound from 05/20/2020 FINDINGS: The uterus measures 16.0 x 9.4 x 10.7 cm. The endometrium is not visualized. The uterus is enlarged and diffusely hypoechoic. This is likely due to multiple leiomyomas. There is a 6.4 x 6.4 x 5.2 cm mass seen at the lower uterine segment. There is a 10.2 x 9.5 x 9.7 cm mass seen near the fundus. The right ovary measures 4.0 x 2.9 x 2.8 cm. The left ovary measures 2.3 x 2.9 x 2.5 cm. Normal arterial waveforms were obtained from both ovaries. No free intraperitoneal fluid is seen within the posterior cul-de-sac. IMPRESSION: The uterus is enlarged with multiple hypoechoic masses consistent uterine leiomyomas. It should be of note that if there is a setting of an enlarging pelvic mass, MRI should be considered a sarcoma cannot be excluded.
--- NOTE | 2020-06-14 06:38 | ER Document Report ---
ED GI/ - General Chief Complaint: Abdominal Pain Stated Complaint: ABDOMINAL PAIN Time Seen by Provider: 06/14/20 01:19 Primary Care Provider: [facility] [Provider Group] - Follow up tomorrow Notes: Patient is a 30-year-old female comes emergency department for chief complaint of abdominal pain. She reports pain is in both upper and lower left side of the abdomen although intermittently sharp in the lower abdomen. She states occasionally she will have nausea and she will vomit, she states she did this twice over the past day. She is able to eat, she denies hematemesis or hematochezia, she does report she is constipated. She denies flank pain, fever/chills, vaginal discharge, concerns for STD. She denies dysuria. She is currently bleeding vaginally and states she is on her menstrual cycle. She denies any surgeries or diagnosed medical history, denies any daily medications. She admits to daily alcohol, she smokes marijuana, she denies smoking. TRAVEL OUTSIDE OF THE [place] IN LAST 30 DAYS: No - Related Data Allergies/Adverse Reactions: cephalexin [From Keflex] Allergy (Verified 06/14/20 01:02) Penicillins Allergy (Verified 06/14/20 01:02) Past Medical History - General Information source: Patient - Social History Smoking Status: Never Smoker Frequency of alcohol use: Heavy Drug Abuse: None Lives with: Family Family History: Reviewed & Not Pertinent Patient has homicidal ideation: No - Past Medical History Cardiac Medical History: Reports: Hx Hypertension Psychiatric Medical History: Denies: Hx Depression - Immunizations Immunizations up to date: Yes Hx Diphtheria, Pertussis, Tetanus Vaccination: Yes Review of Systems - Review of Systems Constitutional: No symptoms reported EENT: No symptoms reported Cardiovascular: No symptoms reported Respiratory: No symptoms reported Gastrointestinal: See HPI Genitourinary: See HPI Female Genitourinary: See HPI Musculoskeletal: No symptoms reported Skin: No symptoms reported Hematologic/Lymphatic: No symptoms reported Neurological/Psychological: No symptoms reported Physical Exam - Vital signs Vitals: Temp Pulse Resp BP Pulse Ox 98 F 100 19 120/85 100 06/14/20 01:04 06/14/20 01:04 06/14/20 01:04 06/14/20 01:04 06/14/20 01:04 - Notes Notes: GENERAL: Drowsy but arouses to voice and then interacts without difficulty or signs of distress HEAD: Normocephalic, atraumatic. EYES: Pupils equal, round, and reactive to light. Extraocular movements intact. ENT: Oral mucosa moist, tongue midline. Oropharynx unremarkable. Airway patent. NECK: Full range of motion. Supple. Trachea midline. No lymphadenopathy. LUNGS: Clear to auscultation bilaterally, no wheezes, rales, or rhonchi. No respiratory distress. Non-tender chest wall. HEART: Regular rate and rhythm. No murmur ABDOMEN: Tender in the left lower quadrant/pelvic area, however no guarding, no rigidity, no rebound tenderness. Unremarkable abdomen otherwise. GENITOURINARY: Deferred EXTREMITIES: Moves all 4 extremities spontaneously. No edema, normal radial and dorsalis pedis pulses bilaterally. No cyanosis. BACK: no cervical, thoracic, lumbar midline tenderness. No saddle anesthesia, normal distal neurovascular exam. Moves all extremities in full range of motion. NEUROLOGICAL: Alert and oriented x3. Normal speech. Cranial nerves II through XII grossly intact. Strength 5/5 in all extremities. PSYCH: Slightly flat affect SKIN: Warm, dry, normal turgor. No rashes or lesions noted. Course - Re-evaluation Re-evalutation: Patient drowsy but easily aroused, she is well-appearing with no signs of distress. Vital signs unremarkable. CBC nonspecific with some thrombocytosis but otherwise unremarkable. Chemistry unremarkable, urinalysis nonspecific with reported menstrual contamination per patient, test is negative. Urine drug screen from triage evaluation reviewed and unremarkable. Patient on p atient's left lower quadrant/left pelvic pain I did discuss pelvic exam but this was deferred by patient, discussed pelvic ultrasound and this will be performed. She states she has a history of ovarian cysts. Her remaining abdominal exam is nontender except for the left lower quadrant, although she does report some left upper quadrant pain. Patient endorses daily alcohol but denies alcohol depe ndence or withdrawal. Lipase is not elevated, without current tenderness and based on her history I suspect a component of gastritis along with her reported vomiting. She will be treated for gastritis in regards to this, I discussed this in detail. I also discussed detox and she will be provided a referral for this. Ultrasound of the pelvis shows large areas that are probably fibroids but cancer cannot be completely ruled out. Ovaries visualized and unremarkable with good blood flow and no evidence of torsion. I discussed this at length with patient, discussed importance of follow-up. Patient also reports some constipation with her left lower quadrant discomfort, she was provided with magnesium citrate to go home with use if needed. Discussed return precautions. Patient states und erstanding and agreement. Stable and well-appearing at time of discharge. - Vital Signs Vital signs: Temp Pulse Resp BP Pulse Ox 97.9 F 97 19 114/94 H 98 06/14/20 06:45 06/14/20 06:45 06/14/20 01:04 06/14/20 06:45 06/14/20 06:45 - Laboratory Result Diagrams: 06/14/20 01:16 06/14/20 01:16 Laboratory results interpreted by me: 06/14/20 06/14/20 01:16 04:05 MCV 76 L MCH 25.4 L RDW 15.3 H Plt Count 543 H Urine Protein 30 H Urine Ketones TRACE H Urine Blood LARGE H Urine Urobilinogen 2.0 H Ur Leukocyte Esterase TRACE H Discharge - Discharge Clinical Impression: Abdominal pain Qualifiers: Abdominal location: generalized Qualified Code(s): R10.84 - Generalized abdominal pain Vomiting Qualifiers: Vomiting type: unspecified Vomiting Intractability: non-intractable Nausea presence: unspecified Qualified Code(s): R11.10 - Vomiting, unspecified Condition: Stable Disposition: HOME, SELF-CARE Additional Instructions: I suspect your upper abdominal pain in your left upper abdomen is from gastr itis, inflammation of your stomach. Reduce/stop drinking alcohol, consider the detox follow-up listed below. Take the Carafate and Pepcid as prescribed. Start with bland food, also avoid smoking, caffeine, spicy foods. Follow-up with primary care for additional management of this. You have what appears to be large fibroids on your uterus which are most likely causing your lower abdominal pain and frequent bleeding. It is important that you follow-up with the DISTRIBUTION AGENT listed because these need to be closely evaluated to make sure that this is not an other concerning problem including possible cancer. In addition to this the DISTRIBUTION AGENT can perform management so you can stop having pain and bleeding. Follow-up with [facility], call today to set up your follow-up. Return if you worsen including severe worsening pain, heavy bleeding with dizziness or passing out, uncontrolled vomiting, fever, or any other concerning or worsening symptoms. [facility] [address] [place] [address] , [place] [address] Hours: Open 24 hours Prescriptions: Sucralfate [Carafate 1 gm Tablet] 1 gm PO QID #20 tablet Famotidine [Pepcid 20 mg Tablet] 20 mg PO BID #14 tablet Ondansetron [Zofran Odt 4 mg Tablet] 1 - 2 tab PO Q4H PRN #15 tab.rapdis PRN Reason: For Nausea/Vomiting Forms: Return to Work Referrals: [facility] [Provider Group] - Follow up tomorrow
[2020-06-14 06:46] VITALS: BP 114/94
[2020-06-14] MEDS ORDERED: MAGNESIUM CITRATE 296 ML BOTTLE PO ONE (06:46)
== END 2020-06-14 07:07 | disposition home or self-care (01) ==
LOC: ER 00:53
DX: K59.00 Constipation, unspecified (principal); N85.9 Noninflammatory disorder of uterus, unspecified; R10.84 Generalized abdominal pain; R10.814 Left lower quadrant abdominal tenderness; R11.2 Nausea with vomiting, unspecified; R40.0 Somnolence; I10 Essential (primary) hypertension; Z88.1 Allergy status to other antibiotic agents; Z88.0 Allergy status to penicillin; Z87.42 Personal history of other diseases of the female genital tract
CPT/HCPCS: 99285; 96361; 96374; 96375; 36415; 83690; 84703; 85025; 80053; 81001; 80307; 76856; 93976; J3490; J1885; J2405; J7030